=== PATIENT | female | born 1960 | race Caucasian/White ===

== ENCOUNTER 2020-04-04 02:45 | Emergency (ER) | payer MEDICARE, SELFPAY ==
--- NOTE | 2020-04-04 02:48 | XR_ITS ---
WS: [id number] LEFT KNEE: 3 VIEW(S) TECHNIQUE: AP, oblique(s) and lateral. HISTORY: fall COMPARISON: 12/20/2006 No fracture or dislocation. Moderate tricompartment osteoarthritis. Moderate-sized osteophytes along the joint lines. There is bill int space narrowing. More significant narrowing at the patellofemoral joint space. No joint effusion. No soft tissue abnormality. XR/XR knee LT 3V* [id number] IMPRESSION: 1. No acute fracture. 2. Tricompartment moderate osteoarthritis.
--- NOTE | 2020-04-04 02:48 | XR_ITS ---
WS: [id number] LEFT ANKLE: 3 VIEW(S) TECHNIQUE: AP, oblique(s) and lateral. HISTORY: fall COMPARISON: None available. Seen on the lateral projection is a linear osseous density which could be an avulsion fracture from t he anterior fibula. This is only seen on the lateral projection. No definite fractures. No joint effusion or widening of the ankle mortise. No significant degenerative changes at the joint spaces. Mild diffuse soft tissue edema. Moderate size calcaneal spur. XR/XR ankle LT min 3V* [id number] IMPRESSION: Soft tissue edema. No definite fractures. Tiny osseous density seen only on the lateral projection anteriorly could be an avulsion fracture from the fibula.
[2020-04-04 02:50] VITALS: BP 173/50; PULSE 65; RESP 17; TEMP 36.6; O2SAT 99; BMI 56.5
--- NOTE | 2020-04-04 02:50 | ED_ITS ---
HPI - Fall General: Chief Complaint: Extremity Injury, Lower Stated Complaint: left lower leg and ankle pain and swelling Time Seen by Provider: 04/04/20 02:48 Source: patient and EMS Mode of arrival: EMS Limitations: no limitations History of Present Illness: HPI Narrative: 60-year-old female states she slipped and fell on the ice on Wednesday. She states she injured her left foot ankle and knee and has had pain since then. She states she has had difficulty walking and severe pain with any weight on that ankle. She states that tonight she was having pain and having difficulty sleeping. States pain is sharp in nature and rates it a 6 out of 10. She denies any other injuries when she fell. Denies any head injury MD complaint: fall Onset (ago): day(s) Fall from: standing Associated symptoms-after fall: Denies abdominal pain, chest pain, headache(s) or neck pain Review of Systems Const: Denies: fever(s), chills, body aches or change in appetite Eyes: Denies: blurry vision or eye discomfort ENMT: Denies: throat pain or dental pain Card: Denies: chest pain Resp: Denies: dyspnea GI: Denies: abdominal pain, nausea, vomiting or diarrhea : Denies: dysuria Musc: Reports: extremity pain and joint pain; Denies: neck pain or back pain Skin/Breast: Denies: rash Neuro: Denies: headache(s) Psych: Denies: depression Noah/Lymph: Denies: easy bruising All/Imm: Denies: urticaria Physical Exam Const: COMMON NORMALS: no acute distress, patient oriented x3 and healthy appearing HENMT: COMMON NORMALS: normocephalic and atraumatic HEAD & SCALP: normocephalic and atraumatic Eye: COMMON NORMALS: Equal, round and reactive pupils present and EOMs intact bilaterally PUPIL: Yes Equal, round and reactive pupils present Neck/C-Spine: COMMON NORMALS: full ROM and supple Chest: COMMONS NORMALS: normal inspection of the chest and normal palpation of entire chest wall Resp: COMMON NORMALS: normal respiratory effort, No retractions, No use of accessory muscles and clear to auscultation bilaterally AUSCULTATION: clear to auscultation bilaterally Cardio: COMMON NORMALS: regular rate, regular rhythm and No murmurs present (C ardio) RATE: regular rate RHYTHM: regular rhythm GI: COMMON NORMALS: Normal to inspection, nondistended, normoactive bowel sounds present, Soft to palpation, non-tender and no masses PALPATION: Yes Soft to palpation Extremity: COMMON NORMALS: normal to inspection NARRATIVE EXTREMITY EXAM: Tenderness over left lateral foot and ankle mild tenderness to anterior knee Neuro: COMMON NORMALS: patient oriented x3, moves all extremities and no focal motor deficits Psych: COMMON NORMALS: mental status grossly normal, Normal thought process present and cooperative THOUGHT PROCESS: Normal thought process present Skin: COMMON NORMALS: no rashes or lesions noted and no wounds GENERAL SKIN EXAM: no rashes or lesions noted Course Vital Signs: Vital signs: Vital Signs Temperature 97.9 F 04/04/20 02:50 Pulse Rate 68 04/04/20 03:12 Respiratory Rate 18 04/04/20 03:12 Blood Pressure 131/60 04/04/20 03:12 Pulse Oximetry 98 04/04/20 03:12 MDM - Fall MDM Narrative: Medical decision making narrative: Mayra presents here after a fall. Her x-rays here are all negative. She has a walker at home and we will Riccardo wrap her foot. She is to follow-up with PCP in 2 to 4 days. She does have swelling on the foot but no signs of cellulitis she does have bruising. Imaging Data^: xr l knee: Attestation: I personally reviewed and interpreted this imaging study as follows: My impression: no acute abnormalities xr l ankle: Attestation: I personally reviewed and interpreted this imaging study as follows: My impression: no acute fx xr l foot: Attestation: I personally reviewed and interpreted this imaging study as follows: Radiologist's impression: [address] [address] XRay Report Signed Patient: Chely Katz Unit #: [id number] : 1960 Age/Sex: 60 / F ADM Date: 04/04/20 Loc: ER Room/Bed: Attending Dr: Ordering Provider/Ordering MD: Thomas Noe MD Date of Service: 04/04/20 Procedure(s): XR foot LT min 3V* [id number] Accession Number(s): [id number] Report Number: [id number] PROCEDURE INFORMATION: Exam: XR Left Foot Exam date and time: 04/04/2020 2:50 AM Age: 60 years old Clinical indication: Injury or trauma; Sprain or strain; Left; Patient HX: Multiple falls. Swelling and redness to dorsal surface of foot. TECHNIQUE: Imaging protocol: XR Left foot. Views: 3 or more views. COMPARISON: No relevant prior studies available. FINDINGS: Bones/joints: Mild hallux valgus deformity. Large plantar calcaneal spur. Degenerative midfoot arthrosis. Soft tissues: Extensive soft tissue swelling. XR/XR foot LT min 3V* [id number] IMPRESSION: 1. No acute osseous abnormality. 2. Extensive soft tissue swelling. Question cellulitis. Discharge Plan Discharge Patient Disposition: Home Clinical Impression: Ankle sprain and strain, Fall Condition: Stable Prescriptions: [place] 5-325 mg tablet 1 tab PO Q6H PRN (Reason: pain) Qty: 14 RF: 0 ondansetron 4 mg tablet,disintegrating 4 mg PO Q6H PRN (Reason: nausea and vomiting) Qty: 14 RF: 0 Naprosyn 500 mg tablet 500 mg PO BID PRN (Reason: pain) Qty: 20 RF: 0 Discharge Orders: Discharge ED (Routine); Ordered 04/04/20 Ordered By: Thomas Noe Referrals: Ela Leary MD [Primary Care Provider] - 1-3 days Discharge Diet: Advance as tolerated Discharge Activity: Resume usual activity Patient Instructions: Ankle Sprain (ED), Opioid Safety Coding Level of Care Code ED Office Machines Teacher for Chg Fwd Exam Comprehensive
[2020-04-04 02:54] VITALS: PULSE 68; RESP 18; O2SAT 98
[2020-04-04] MEDS: ondansetron 4 MG Tablet PO (03:10)
[2020-04-04] MEDS: HYDROcodone-acetaminophen 7.5-325 mg Tablet 1 TAB PO (03:11)
[2020-04-04 03:12] VITALS: BP 131/60; PULSE 68; RESP 18; O2SAT 98
[2020-04-04 04:12] VITALS: BP 134/46; PULSE 70; RESP 17; O2SAT 98
[2020-04-04] MEDS: HYDROcodone-acetaminophen 5-325 mg Tablet 1 TAB PO (04:13)
== END 2020-04-04 04:16 | disposition home or self-care (01) ==
PROVIDERS: Emergency Provider Emergency Medicine; PCP Family Medicine
DX: S93.402A Sprain of unspecified ligament of left ankle, initial encounter (principal); S96.912A Strain of unspecified muscle and tendon at ankle and foot level, left foot, initial encounter; W00.0XXA Fall on same level due to ice and snow, initial encounter
CPT/HCPCS: 73562; 73610; 73630; 99283; Q0162

== ENCOUNTER 2020-05-28 04:12 | Emergency (ER) | payer MEDICARE, SELFPAY ==
[2020-05-28 04:13] VITALS: BP 103/58; PULSE 67; RESP 16; TEMP 36.7; O2SAT 97; BMI 57.5
[2020-05-28 04:19] VITALS: BP 147/59; PULSE 62; RESP 18; O2SAT 97
[2020-05-28 04:26] VITALS: PULSE 63
--- NOTE | 2020-05-28 04:33 | XRR_ITS ---
PROCEDURE INFORMATION: Exam: XR Right Ankle Exam date and time: 05/28/2020 4:54 AM Age: 60 years old Clinical indication: Pain; Swelling or effusion of joint; Ankle; Right; Additional info: Pain, swelling TECHNIQUE: Imaging protocol: XR Right ankle. Views: 3 or more views. COMPARISON: CR Ankle 3 views, RIGHT* [id number] 10/11/2017 9:59 AM FINDINGS: Bones/joints: Large calcaneal spur. Degenerative appearance of the ankle joint with cortical irregularity and hypertrophic formation at the medial malleolus. Cortical irregularity of the distal fibula. No acute fracture. Degenerative appearance or osteochondral irregularity of the medial aspect of the talus. Soft tissues: Edema superficially diffusely. XR/XR ankle RT min 3V* [id number] IMPRESSION: 1. Degenerative arthritis ankle joint. 2. Prominent calcaneal spur. 3. Areas of osteochondral defect or degenerative changes of the medial talus.
--- NOTE | 2020-05-28 05:01 | W.ED.EXTPRO ---
HPI - Extremity Problem General: Chief complaint: Extremity Problem,Nontraumatic Stated complaint: ANKLE PAIN Time Seen by Provider: 05/28/20 04:13 History of Present Illness: HPI Narrative: 60-year-old female comes in with right ankle pain. She states it started hurting about 10 PM. She states when she went to bed about 1030 that the pain kept her awake. About 11 PM she did take naproxen which did not seem to help. Her medications include aspirin 81 mg. She states it hurts to stand on the foot/ankle as well as increased pain with range of motion of the ankle. She states she injured that ankle in 1984 but not since then. She denies any numbness or tingling in her foot or toes. She states it is swollen at the ankle. She denies any specific trauma. She does states she has a history of gout. MD Complaint: joint swelling and joint pain Onset (ago): hour(s) (First noticed the pain about 10 PM) Pain Consistency: constant Location: right and lower extremity (Right ankle) Quality: sharp Radiation: none Relieving factors: nothing Exacerbating factors: range of motion, weight bearing and walking Associated symptoms: Reports no associated symptoms; Deny fever(s) Context: history of gout Review of Systems Const: Denies: fever(s), chills or body aches Musc: Reports: joint swelling (Right ankle), joint warmth and joint stiffness Physical Exam Const: COMMON NORMALS: no acute distress, patient oriented x3, healthy appearing, alert and well nourished NUTRITIONAL APPEARANCE: obese Extremity: COMMON NORMALS: capillary refill normal and no pedal edema RIGHT LOWER EXTREMITY: Yes foot & digits Right ankle: Yes inspection (Swelling noted at the lateral malleolus), Yes ROM (Increased pain with range of motion in all directions) and Yes neurovascular exam (Intact) and Yes foot & digits (Good capillary refill noted. Good pedal pulses.) Neuro: COMMON NORMALS: patient oriented x3 SENSORIUM/ORIENTATION: Yes alert Course ED course: Right ankle x-ray shows no acute fracture or dislocation. Vital Signs: Vital signs: Vital Signs Temperature 98.1 F 05/28/20 04:13 Pulse Rate 63 05/28/20 04:26 Respiratory Rate 18 05/28/20 04:19 Blood Pressure 147/59 05/28/20 04:19 Pulse Oximetry 97 05/28/20 04:19 Discharge Plan Discharge Patient Disposition: Home Clinical Impression: Ankle pain Qualifiers: Chronicity: acute Laterality: right Qualified Code(s): M25.571 - Pain in right ankle and joints of right foot Condition: Stable Prescriptions: No Action [place] 5-325 mg tablet 1 tab PO Q6H PRN (Reason: pain) Qty: 14 RF: 0 ondansetron 4 mg tablet,disintegrating 4 mg PO Q6H PRN (Reason: nausea and vomiting) Qty: 14 RF: 0 naproxen [Naprosyn] 500 mg tablet 500 mg PO BID PRN (Reason: pain) Qty: 20 RF: 0 spironolactone 25 mg tablet 25 mg PO DAILY RF: 0 montelukast 10 mg tablet 10 mg PO BEDTIME RF: 0 carvedilol 6.25 mg tablet 6.25 mg PO BID RF: 0 levothyroxine 50 mcg tablet 50 mcg PO DAILY RF: 0 trandolapril 4 mg tablet 4 mg PO DAILY RF: 0 simvastatin 10 mg tablet 5 mg PO BEDTIME RF: 0 torsemide 20 mg tablet 20 mg PO DAILY RF: 0 metformin 500 mg tablet 500 mg PO DAILY RF: 0 Discharge Orders: Discharge ED (Routine); Ordered 05/28/20 Ordered By: Ryan Quinn Discharge Diet: Usual diet Discharge Activity: Limit activity as instructed Patient Instructions: Opioid Safety Activity Restrictions/Additional Instructions: Rest, Ice, Support, Elevation Ibuprofen 400-600 mg every 4-6 hours, take with food, do not take the naproxen when taking the ibuprofen. Follow up with your Primary Care Provider. Coding Level of Care Code ED Auto Wrecker for Ralph Fwd Exam Expanded Problem Focused
[2020-05-28] MEDS: ketorolac 60 mg/2 mL INJ IM (05:37)
[2020-05-28 05:57] VITALS: BP 134/75; PULSE 63; O2SAT 98
== END 2020-05-28 05:55 | disposition home or self-care (01) ==
PROVIDERS: Emergency Provider Emergency Medicine
DX: M25.571 Pain in right ankle and joints of right foot (principal)
CPT/HCPCS: 29515; 73610; 96372; 99283; J1885

== ENCOUNTER 2022-02-14 10:13 | Emergency (ER) | payer MEDICARE, SELFPAY ==
--- NOTE | 2022-02-14 10:20 | XRR_ITS ---
PROCEDURE INFORMATION: Exam: XR Left Foot Exam date and time: 02/14/2022 10:40 AM Age: 62 years old Clinical indication: Pain; Foot; Patient HX: PT had prior sprain last year on ice and has had trouble with her left ankle since. TECHNIQUE: Imaging protocol: Radiologic exam of the Left foot. Views: 3 or more views. COMPARISON: CR XR foot LT min 3V* [id number] 04/04/2020 2:45 AM FINDINGS: Bones/joints: No acute fracture is seen. The joints are unremarkable. Calcaneal plantar and Achilles enthesophytes noted. Soft tissues: No joint effusion is seen. XR/XR foot LT min 3V* [id number] IMPRESSION: No evidence of acute fracture or dislocation.
[2022-02-14 10:27] VITALS: BP 115/76; PULSE 70; RESP 18; TEMP 36.6; O2SAT 95
--- NOTE | 2022-02-14 12:32 | USR_ITS ---
PROCEDURE INFORMATION: Exam: US Duplex Left Lower Extremity Veins, Limited Exam date and time: 02/14/2022 1:00 PM Age: 62 years old Clinical indication: Pain; Leg, lower and foot; Left; Additional info: Pain and swelling TECHNIQUE: Imaging protocol: Real-time Duplex ultrasound of the Left Lower Extremity with 2-D teran scale, color Doppler flow and spectral waveform analysis with image documentation. Limited exam focused on the left lower extremity veins. COMPARISON: CR (LOW EXM, ) 02/14/2022 10:40 AM FINDINGS: Left deep veins: Unremarkable. The common femoral, femoral, proximal profunda femoral and popliteal veins are patent without thrombus. Normal Doppler waveforms. Normal compressibility and/or augmentation response. Left superficial veins: Unremarkable. Saphenofemoral junction is patent without thrombus. Soft tissues: Unremarkable. US/CV venous duplex [facility] [id number] IMPRESSION: No evidence of deep vein thrombosis.
--- NOTE | 2022-02-14 14:04 | ED_ITS ---
HPI - Extremity Problem General: Chief complaint: Extremity Injury, Lower Stated complaint: Issues walking on left foot, broke in Mar. Time Seen by Provider: 02/14/22 10:16 History of Present Illness: 62 yo female patient presents to ER with left foot pain. Pt denies any injury or trauma but states this has been going on for weeks. Pt denies any hx of gout or hx of fever sob or DVT. Associated symptoms: Deny chest pain, fever(s) or rash Review of Systems Const: Denies: fever(s), chills, body aches, change in appetite, change in weight, fatigue, malaise or diaphoresis Eyes: Denies: change in vision, blurry vision, blind spots, photophobia, eye discomfort, eye discharge, eye redness, floaters or seeing flashes ENMT: Denies: throat pain, uvular edema, enlarged tonsils, odynophagia, hoarseness, mouth pain, swelling of lips/tongue, oral sores, bleeding gums, dental pain, dry mouth, ear or mastoid pain, ear discharge, change in hearing, tinnitus, disequilibrium, nasal discharge, nasal congestion, post nasal drip or sinus pain Card: Denies: chest pain, palpitations, irregular heart rhythm, edema, swelling of feet/ankles, lightheadedness, syncope, pre-syncope, dyspnea on exertion, orthopnea, leg pain with exertion or acrocyanosis Resp: Denies: dyspnea, productive cough, non-productive cough, wheezing, stridor, pain on inspiration, change in phlegm color, hemoptysis or chest congestion GI: Denies: abdominal pain, nausea, vomiting, hematemesis, dysphagia, diarrhea, constipation, GI cramping, change in bowel habits or rectal pain : Denies: flank pain, difficulty voiding, dysuria, urinary frequency, urinary urgency, urinary hesitancy or hematuria Musc: Denies: neck pain, back pain, joint swelling, joint redness, joint warmth or deformity Skin/Breast: Denies: rash, pruritus, erythema, sores, new lesions, changes in skin color or dry skin Neuro: Denies: headache(s), numbness in extremities, weakness in extremities, sensory changes, lack of coordination, difficulty walking, frequent falls, dizziness, vertigo, confusion, behavioral changes, Slurred speech present, difficulty communicating thoughts or seizure-like activity Psych: Denies: anxiety, depression, suicidal ideation or homicidal ideation Endo: Denies: polyuria, polydipsia, tired all the time, cold intolerance, excessive sweating, flushing, hot flashes or heat intolerance Noah/Lymph: Denies: easy bruising, easy bleeding, petechiae, purpura, enlarged lymph nodes or tender lymph nodes All/Imm: Denies: urticaria, throat swelling, tongue swelling, facial swelling, acute wheezing or itchy eyes Physical Exam Const: COMMON NORMALS: no acute distress, average body habitus, patient oriented x3, no limitations, healthy appearing, alert and well nourished HENMT: THROAT: no uvular edema Neck/C-Spine: COMMON NORMALS: no JVD Resp: COMMON NORMALS: normal respiratory effort, No retractions, No use of accessory muscles, clear to auscultation bilaterally and percussion normal AUSCULTATION: clear to auscultation bilaterally PERCUSSION: percussion normal Cardio: COMMON NORMALS: no JVD, regular rate, regular rhythm, S1 normal heart sound present, S2 normal heart sound present, No gallops present (Cardio), No clicks present (Cardio), No murmurs present (Cardio), No rub (Cardio) and Peripheral pulses 2+ throughout RATE: regular rate RHYTHM: regular rhythm HEART SOUNDS: S1 normal heart sound present and S2 normal heart sound present PERIPHERAL PULSES: Peripheral pulses 2+ throughout Extremity: OTHER: Pt has some edema to left foot. there is no erythema or ecchymosis. Pt has mild calf tenderness no swelling noted pt is NVI distally Neuro: COMMON NORMALS: patient oriented x3 SENSORIUM/ORIENTATION: Yes alert Course Vital Signs: Vital signs: Vital Signs Temperature 97.8 F 02/14/22 10:27 Pulse Rate 70 02/14/22 10:27 Respiratory Rate 18 02/14/22 10:27 Blood Pressure 115/76 02/14/22 10:27 Pulse Oximetry 95 02/14/22 10:27 Oxygen Delivery Me thod 02/14/22 10:27 MDM - Extremity (Nontraumatic) Medical Decision Making Patient is well appearing non toxic and in no acute distress. 62 yo female patient presents to ER with left foot pain. Pt denies any injury or trauma but states this has been going on for weeks. Pt denies any hx of gout or hx of fever sob or DVT. xray is negative for any acute fractures or dislocation. Negative for DVT per US. Pt has no warm or red area concerning for gout or cellulitis. I will treat with NSAIDs and elevation and have her follow up with PCP Medical Records gout cellulitits, fracture, sprain Lab Data Radiology Impressions Foot X-Ray 02/14/22 10:20 IMPRESSION: No evidence of acute fracture or dislocation. Venous Duplex 02/14/22 12:32 IMPRESSION: No evidence of deep vein thrombosis. Discharge Plan Discharge Patient Disposition: Home Clinical Impression: Foot pain Condition: Stable Prescriptions: New indomethacin 50 mg capsule 50 mg PO TID Qty: 30 0RF Rx Instructions: administer with food or milk No Action azelastine 137 mcg (0.1 %) aerosol,spray 2 spray intranasal BID Qty: 30 2RF Rx Instructions: administer into each nostril [place] 5-325 mg tablet 1 tab PO Q6H PRN (Reason: pain) Qty: 14 0RF ondansetron 4 mg tablet,disintegrating 4 mg PO Q6H PRN (Reason: nausea and vomiting) Qty: 14 0RF naproxen [Naprosyn] 500 mg tablet 500 mg PO BID PRN (Reason: pain) Qty: 20 0RF spironolactone 25 mg tablet 25 mg PO DAILY montelukast 10 mg tablet 10 mg PO BEDTIME carvedilol 6.25 mg tablet 6.25 mg PO BID levothyroxine 50 mcg tablet 50 mcg PO DAILY trandolapril 4 mg tablet 4 mg PO DAILY simvastatin 10 mg tablet 5 mg PO BEDTIME torsemide 20 mg tablet 20 mg PO DAILY metformin 500 mg tablet 500 mg PO DAILY Discharge Orders: Discharge ED (Routine); Ordered 02/14/22 Ordered By: Radha Villarreal Discharge Diet: Advance as tolerated Discharge Activity: Increase activity as tolerated Patient Instructions: Opioid Safety, Pain Management Activity Restrictions/Additional Instructions: Please take pain medication as prescribed and do not take Motrin or Advil with this. Elevate Extremity Riccardo wrap for comfort as needed Return to ER with any worsening of symptoms Coding Level of Care Code ED Inside Sales Professional for Ralph Gurrola
[2022-02-14] MEDS: HYDROcodone-acetaminophen 5-325 mg Tablet 1 TAB PO (14:37)
[2022-02-14 14:40] VITALS: BP 149/73; PULSE 64; RESP 16; O2SAT 97
--- NOTE | 2022-02-14 14:40 | PC.NURSE ---
MANE WRAP APPLIED TO LEFT ANKLE.
== END 2022-02-14 14:43 | disposition home or self-care (01) ==
PROVIDERS: Emergency Provider Registered Nurse
DX: M79.672 Pain in left foot (principal); Z79.84 Long term (current) use of oral hypoglycemic drugs; E11.9 Type 2 diabetes mellitus without complications; M10.9 Gout, unspecified
CPT/HCPCS: 73630; 80048; 85025; 93971; 96374; 96375; 99284; J1170; J2405

== ENCOUNTER 2022-02-14 23:17 | Emergency (ER) | payer MEDICARE, SELFPAY ==
[2022-02-14 23:19] VITALS: BP 102/84; PULSE 66; RESP 18; TEMP 36.7; O2SAT 98; BMI 54.5
--- NOTE | 2022-02-14 23:22 | ED_ITS ---
HPI - General Adult General: Chief complaint: Extremity Injury, Lower Stated complaint: Left foot pain Time Seen by Provider: 02/14/22 23:19 Source: patient and EMS Mode of arrival: EMS Limitations: no limitations History of Present Illness: 62-year-old female who was seen here earlier today with left foot pain she states she has had increasing pain throughout the day much worse with palpation and walking. She rates her pain a 8 out of 10 currently denies any injuries has had a history of gout in the past. Associated symptoms: Deny chest pain, dyspnea, headache(s), nausea, rash or vomiting Review of Systems Const: Denies: fever(s), chills, body aches or change in appetite Eyes: Denies: blurry vision or eye discomfort ENMT: Denies: throat pain or dental pain Card: Denies: chest pain Resp: Denies: dyspnea GI: Denies: abdominal pain, nausea, vomiting or diarrhea : Denies: dysuria Musc: Reports: extremity pain Skin/Breast: Denies: rash Neuro: Denies: headache(s) Psych: Denies: depression Noah/Lymph: Denies: easy bruising All/Imm: Denies: urticaria PFSH ED PFSH: Medical History (Updated 02/15/22 @ 00:22 by Thomas Noe MD) Diabetes Social History (Updated 02/14/22 @ 23:23 by Thomas Noe MD) Substance/Drug Use: never Physical Exam Const: COMMON NORMALS: no acute distress HENMT: COMMON NORMALS: normocephalic and atraumatic HEAD & SCALP: normocephalic and atraumatic Eye: COMMON NORMALS: conjunctivae normal CONJUNCTIVA: Yes conjunctivae normal Neck/C-Spine: COMMON NORMALS: full ROM Chest: COMMONS NORMALS: normal inspection of the chest Resp: COMMON NORMALS: normal respiratory effort Cardio: COMMON NORMALS: regular rate RATE: regular rate GI: INSPECTION: Yes normal to inspection Extremity: OTHER: slight tenderness over left foot Psych: COMMON NORMALS: mental status grossly normal Skin: COMMON NORMALS: no rashes or lesions noted GENERAL SKIN EXAM: no rashes or lesions noted Course Vital Signs: Vital signs: Vital Signs Temperature 98.1 F 02/14/22 23:19 Pulse Rate 66 02/14/22 23:19 Respiratory Rate 18 02/14/22 23:19 Blood Pressure 102/84 02/14/22 23:19 Pulse Oximetry 98 02/14/22 23:19 MDM - General Adult Medical Decision Making Patient presents here with left foot pain likely gout patient's blood work here is normal no signs of cellulitis we will place patient on [place] patient is to continue indomethacin. Lab Data 02/14/22 23:49 02/14/22 23:49 Laboratory Results WBC 6.7 10^3/uL (4.0-10.0) 02/14/22 23:49 RBC 4.34 10^6/uL (4.1-5.3) 02/14/22 23:49 Hgb 13.6 g/dL (11.5-15.3) 02/14/22 23:49 Hct 43.9 % (37.0-47.0) 02/14/22 23:49 MCV 101.2 fl (81-99) H 02/14/22 23:49 MCH 31.3 pg (28.0-34.0) 02/14/22 23:49 MCHC 31.0 g/dL (30.0-36.0) 02/14/22 23:49 RDW 12.7 % (12.1-15.1) 02/14/22 23:49 Plt Count 225 10^3/cmm (130-400) 02/14/22 23:49 MPV 10.6 fL (7.4-10.4) H 02/14/22 23:49 Neut % (Auto) 69.8 % 02/14/22 23:49 Lymph % (Auto) 17.2 % 02/14/22 23:49 [place] % (Auto) 10.6 % 02/14/22 23:49 Eos % (Auto) 1.9 % 02/14/22 23:49 Baso % (Auto) 0.4 % 02/14/22 23:49 Neut # (Auto) 4.66 10^3/uL (1.8-7.7) 02/14/22 23:49 Lymph # (Auto) 1.2 10^3/uL (0.8-4.8) 02/14/22 23:49 [place] # (Auto) 0.7 10^3/uL (0.2-0.9) 02/14/22 23:49 Eos # (Auto) 0.1 10^3/uL (0.0-0.8) 02/14/22 23:49 Baso # (Auto) 0.0 10^3/uL (0.0-0.1) 02/14/22 23:49 Nucleated RBC % (auto) 0 % 02/14/22 23:49 Nucleated RBCs # 0.0 /100WBC 02/14/22 23:49 Sodium 137 mmol/L (136-145) 02/14/22 23:49 Potassium 4.3 mmol/L (3.5-5.1) 02/14/22 23:49 Chloride 99 mmol/L (98-107) 02/14/22 23:49 Carbon Dioxide 30 mmol/L (22-29) H 02/14/22 23:49 Anion Gap 12.3 (5-19) 02/14/22 23:49 BUN 19 mg/dL (8-23) 02/14/22 23:49 Creatinine 0.9 mg/dL (0.5-0.9) 02/14/22 23:49 GFR Calculation 63.2 mL/min (90-130) L 02/14/22 23:49 Glucose 133 mg/dL (65-115) H 02/14/22 23:49 Calculated Osmolality 288 mOsm/kg (285-295) 02/14/22 23:49 Calcium 9.2 mg/dL (8.5-10.5) 02/14/22 23:49 Discharge Plan Discharge Patient Disposition: Home Clinical Impression: Gout Prescriptions: New hydrocodone-acetaminophen 5-325 mg tablet 1 tab PO Q6H PRN (Reason: pain) Qty: 14 0RF No Action azelastine 137 mcg (0.1 %) aerosol,spray 2 spray intranasal BID Qty: 30 2RF Rx Instructions: administer into each nostril [place] 5-325 mg tablet 1 tab PO Q6H PRN (Reason: pain) Qty: 14 0RF ondansetron 4 mg tablet,disintegrating 4 mg PO Q6H PRN (Reason: nausea and vomiting) Qty: 14 0RF naproxen [Naprosyn] 500 mg tablet 500 mg PO BID PRN (Reason: pain) Qty: 20 0RF spironolactone 25 mg tablet 25 mg PO DAILY montelukast 10 mg tablet 10 mg PO BEDTIME carvedilol 6.25 mg tablet 6.25 mg PO BID levothyroxine 50 mcg tablet 50 mcg PO DAILY trandolapril 4 mg tablet 4 mg PO DAILY simvastatin 10 mg tablet 5 mg PO BEDTIME torsemide 20 mg tablet 20 mg PO DAILY metformin 500 mg tablet 500 mg PO DAILY indomethacin 50 mg capsule 50 mg PO TID Qty: 30 0RF Rx Instructions: administer with food or milk Discharge Orders: Discharge ED (Routine); Ordered 02/15/22 Ordered By: Thomas Noe Discharge Diet: Advance as tolerated Discharge Activity: Resume usual activity Patient Instructions: Gout (ED), Opioid Safety Coding Level of Care Code ED Programs Manager for Ralph Fwd Exam Comprehensive
[2022-02-14] MEDS: ondansetron 2 mg/ML SDV 2 mL 4 MG IVP (23:50)
[2022-02-14] MEDS: HYDROmorphone 1 mg/mL INJ 1 mL 0.5 MG IVP (23:51)
[2022-02-14 23:59] LABS: Basophils % 0.4 %; Eosinophils # 0.1 10^3/uL (0.0-0.8); Eosinophils % 1.9 %; Hematocrit 43.9 % (37.0-47.0); Hemoglobin 13.6 g/dL (11.5-15.3); Lymphocytes # 1.2 10^3/uL (0.8-4.8); Lymphocytes % 17.2 %; Mean Corpuscular Hemoglobin 31.3 pg (28.0-34.0); Mean Corpuscular Volume 101.2 fl (81-99); Mean Platelet Volume 10.6 fL (7.4-10.4); Monocytes # 0.7 10^3/uL (0.2-0.9); Monocytes % 10.6 %; Neutrophils # 4.66 10^3/uL (1.8-7.7); Neutrophils % 69.8 %; Nucleated Red Blood Cells % 0 %; Platelet Count 225 10^3/cmm (130-400); Red Blood Count 4.34 10^6/uL (4.1-5.3); Red Cell Distribution Width 12.7 % (12.1-15.1); White Blood Count 6.7 10^3/uL (4.0-10.0)
[2022-02-15 00:19] LABS: Anion Gap 12.3 (5-19); Blood Urea Nitrogen 19 mg/dL (8-23); Calcium 9.2 mg/dL (8.5-10.5); Carbon Dioxide 30 mmol/L (22-29); Chloride 99 mmol/L (98-107); Creatinine Clr Calc Pharmacy 123.6985; Glomerular Filtration Rate 63.2 mL/min (90-130); Glucose 133 mg/dL (65-115); Osmolality Calculated 288 mOsm/kg (285-295); Potassium 4.3 mmol/L (3.5-5.1); Sodium 137 mmol/L (136-145)
[2022-02-15] MEDS: HYDROcodone-acetaminophen 5-325 mg Tablet 2 TAB PO (00:30)
[2022-02-15 00:43] VITALS: BP 116/71; PULSE 65; RESP 18; O2SAT 96
== END 2022-02-15 00:30 | disposition home or self-care (01) ==
PROVIDERS: Emergency Provider Emergency Medicine
DX: M10.9 Gout, unspecified (principal); Z79.84 Long term (current) use of oral hypoglycemic drugs; E11.9 Type 2 diabetes mellitus without complications
CPT/HCPCS: 80048; 85025; 96374; 96375; 99284; J1170; J2405

== ENCOUNTER 2024-03-10 11:34 | Emergency (ER) | payer MEDICARE, SELFPAY ==
[2024-03-10] VITALS (10 sets, daily range): BP systolic 108–121; BP diastolic 45–69; PULSE 57–94; RESP 12–20; TEMP 36.9; O2SAT 87–96; BMI 56.5
--- NOTE | 2024-03-10 11:43 | ECG_ITS ---
[email or web address] Test Date: 2024-03-10 Pat Name: Chely Katz Department: Room: Gender: Female Prototype Machinist: : 1960 Requested By: Salvador Coles Order Number: [id number] Mateus MD: Kingston White M.D. Measurements Intervals [place] Rate: 90 P: 0 IN: 0 QRS: -45 QRSD: 129 T: 67 QT: 409 QTc: 503 Interpretive Statements SINUS RHYTHM WITH PACs LEFT AXIS DEVIATION [QRS AXIS < -30] POSSIBLE ANTERIOR MYOCARDIAL INFARCTION , OF INDETERMINATE AGE [30 ms Q WAVE IN V3/V4, OR R < 0.2 mV IN V4] Compared to ECG 10/08/2018 23:05:50 Myocardial infarct finding still present Electronically Signed On 03-11-2024 23:09:19 SLATER APPRENTICE by Kingston White M.D. [email or web address]
--- NOTE | 2024-03-10 11:56 | XRR_ITS ---
PROCEDURE INFORMATION: Exam: XR Chest Exam date and time: 03/10/2024 12:05 PM Age: 64 years old Clinical indication: Cough TECHNIQUE: Imaging protocol: Radiologic exam of the chest. Views: 1 view. COMPARISON: CR XR chest 1V [id number] 10/08/2018 11:35 PM FINDINGS: Lungs: No pulmonary consolidation. Pleural spaces: No pleural effusion. No pneumothorax. Heart/Mediastinum: The cardiac silhouette is unchanged. No gross evidence of pneumomediastinum. Bones/joints: No gross fracture. XR/XR chest 1V portable [id number] IMPRESSION: No acute cardiopulmonary abnormality identified.
[2024-03-10 12:13] LABS: Basophils % 0.3 %; Eosinophils % 0.6 %; Hematocrit 41.1 % (36-47); Lymphocytes # 0.6 10^3/uL (0.8-4.8); Lymphocytes % 17.2 %; Mean Corpuscular HGB Conc 30.7 g/dL (30-55); Mean Corpuscular Hemoglobin 31.4 pg (27-33); Mean Corpuscular Volume 102.5 fl (85-98); Mean Platelet Volume 9.9 fL (7.4-10.4); Monocytes # 0.4 10^3/uL (0.2-0.9); Monocytes % 9.7 %; Neutrophils # 2.58 10^3/uL (1.8-7.7); Neutrophils % 71.6 %; Nucleated Red Blood Cells % 0 %; Platelet Count 221 10^3/cmm (157-399); Red Blood Count 4.01 10^6/uL (3.85-5.65); Red Cell Distribution Width 14.6 % (12.1-15.1)
--- NOTE | 2024-03-10 12:21 | W.ED.SOB ---
HPI - SOB/Dyspnea General: Chief Complaint: Shortness of Breath/Dyspnea Stated Complaint: o2 levels Time Seen by Provider: 03/10/24 11:52 History of Present Illness: HPI Narrative: 64-year-old female presents with cough, shortness of breath has been going on for about a week. Reports it is getting little bit worse. She does have some underlying COPD/asthma Related Data Home Medications Medication Instructions Recorded Confirmed carvedilol 6.25 mg tablet 6.25 mg PO BID 05/28/20 03/10/24 levothyroxine 50 mcg tablet 50 mcg PO DAILY 05/28/20 03/10/24 metformin 500 mg tablet 500 mg PO DAILY 05/28/20 03/10/24 montelukast 10 mg tablet 10 mg PO BEDTIME 05/28/20 03/10/24 simvastatin 10 mg tablet 5 mg PO BEDTIME 05/28/20 03/10/24 torsemide 20 mg tablet 20 mg PO DAILY 05/28/20 03/10/24 trandolapril 4 mg tablet 4 mg PO DAILY 05/28/20 03/10/24 albuterol sulfate 90 mcg/actuation 2 puff inhalation Q6H 03/10/24 03/10/24 aerosol inhaler allopurinol 100 mg tablet 200 mg PO DAILY 03/10/24 03/10/24 Previous Rx's Medication Instructions Recorded azelastine 137 mcg (0.1 %) nasal 2 spray intranasal BID #30 mL 12/23/21 spray albuterol sulfate 90 mcg/actuation 2 inh inhalation Q4H PRN shortness 03/10/24 aerosol inhaler (Ventolin HFA) of breath or wheezing #8.5 grams Allergies Allergy/AdvReac Type Severity Reaction Status Date / Time codeine Allergy ALGY-Hives Verified 05/28/20 04:19 furosemide [From Lasix] Allergy ALGY-Hives Verified 05/28/20 04:19 methylprednisolone Allergy ALGY-Anaphy Verified 05/28/20 04:19 [From Solu-Medrol] laxis morphine Allergy ALGY-Hives Verified 05/28/20 04:19 [facility] ED PFSH: Medical History (Updated 03/10/24 @ 15:21 by Neftali Valentine DO) Diabetes Social History (Updated 02/14/22 @ 23:23 by Thomas Noe MD) Substance/Drug Use: never Course Vital Signs: Vital signs: Vital Signs Temperature 98.4 F 03/10/24 11:39 Pulse Rate 75 03/10/24 15:15 Respiratory Rate 18 03/10/24 15:15 Blood Pressure 121/45 03/10/24 13:54 Pulse Oximetry 89 L 03/10/24 15:15 Oxygen Delivery Me thod Room Air 03/10/24 15:15 Oxygen Flow Rate 3 03/10/24 13:54 MDM - SOB/Dyspnea Medical Decision Making Patient is positive for COVID. Patient has underlying history of asthma. Her O2 saturations were in the low 90s. She was offered admission but declined. She reports he is feeling a lot better. I do suspect that her baseline O2 is normally around 90. Patient will return if her symptoms worsen. She had negative EKG. Lab Data 03/10/24 12:07 03/10/24 12:07 Labs/Radiology: Radiology Impressions Chest X-Ray 03/10/24 11:56 IMPRESSION: No acute cardiopulmonary abnormality identified. Laboratory Results WBC 3.60 10^3/uL (3.29-11.43) 03/10/24 12:07 RBC 4.01 10^6/uL (3.85-5.65) 03/10/24 12:07 Hgb 12.60 g/dL (11.27-16.99) 03/10/24 12:07 Hct 41.1 % (36-47) 03/10/24 12:07 MCV 102.5 fl (85-98) H 03/10/24 12:07 MCH 31.4 pg (27-33) 03/10/24 12:07 MCHC 30.7 g/dL (30-55) 03/10/24 12:07 RDW 14.6 % (12.1-15.1) 03/10/24 12:07 Plt Count 221 10^3/cmm (157-399) 03/10/24 12:07 MPV 9.9 fL (7.4-10.4) 03/10/24 12:07 Neut % (Auto) 71.6 % 03/10/24 12:07 Lymph % (Auto) 17.2 % 03/10/24 12:07 [place] % (Auto) 9.7 % 03/10/24 12:07 Eos % (Auto) 0.6 % 03/10/24 12:07 Baso % (Auto) 0.3 % 03/10/24 12:07 Neut # (Auto) 2.58 10^3/uL (1.8-7.7) 03/10/24 12:07 Lymph # (Auto) 0.6 10^3/uL (0.8-4.8) L 03/10/24 12:07 [place] # (Auto) 0.4 10^3/uL (0.2-0.9) 03/10/24 12:07 Eos # (Auto) 0.0 10^3/uL (0.0-0.8) 03/10/24 12:07 Baso # (Auto) 0.0 10^3/uL (0.0-0.1) 03/10/24 12:07 Nucleated RBC % (auto) 0 % 03/10/24 12:07 Nucleated RBCs # 0.0 /100WBC 03/10/24 12:07 Sodium 137 mmol/L (136-145) 03/10/24 12:07 Potassium 3.1 mmol/L (3.5-5.1) L 03/10/24 12:07 Chloride 94 mmol/L (98-107) L 03/10/24 12:07 Carbon Dioxide 33 mmol/L (22-29) H 03/10/24 12:07 Anion Gap 13.1 (5-19) 03/10/24 12:07 BUN 15 mg/dL (8-23) 03/10/24 12:07 Creatinine 1.0 mg/dL (0.5-0.9) H 03/10/24 12:07 GFR Calculation 55.6 mL/min (90-130) L 03/10/24 12:07 Glucose 99 mg/dL (65-115) 03/10/24 12:07 Calculated Osmolality 285 mOsm/kg (285-295) 03/10/24 12:07 Calcium 8.2 mg/dL (8.5-10.5) L 03/10/24 12:07 Adenovirus (PCR) Not detected (NOT DETECT) 03/10/24 12:51 C. pneumoniae DNA (PCR) Not detected (NOT DETECT) 03/10/24 12:51 Coronavirus 229E (PCR) Not detected (NOT DETECT) 03/10/24 12:51 Human Metapneumovir PCR Not detected (NOT DETECT) 03/10/24 12:51 Influenza A (H1) PCR Not detected (NOT DETECT) 03/10/24 12:51 Influ A (H1/09) PCR Not detected (NOT DETECT) 03/10/24 12:51 Influenza A (H3) PCR Not detected (NOT DETECT) 03/10/24 12:51 Influenza Type A (PCR) Not detected (NOT DETECT) 03/10/24 12:51 Influenza Type B (PCR) Not detected (NOT DETECT) 03/10/24 12:51 M. pneumoniae (PCR) Not detected (NOT DETECT) 03/10/24 12:51 Parainfluenza 1 (PCR) Not detected (NOT DETECT) 03/10/24 12:51 Parainfluenza 2 (PCR) Not detected (NOT DETECT) 03/10/24 12:51 Parainfluenza 3 (PCR) Not detected (NOT DETECT) 03/10/24 12:51 Parainfluenza 4 (PCR) Not detected (NOT DETECT) 03/10/24 12:51 RSV Type A (PCR) Not detected (NOT DETECT) 03/10/24 12:51 RSV Type B (PCR) Not detected (NOT DETECT) 03/10/24 12:51 Entero/Rhino (PCR) Not detected (NOT DETECT) 03/10/24 12:51 SARS-CoV-2 (PCR) Detected (NOT DETECT) A 03/10/24 12:51 All radiology interpretation(s) finalized by discharge Discharge Plan Discharge Patient Disposition: Home Clinical Impression: Asthma with exacerbation, COVID Condition: Stable Prescriptions: New albuterol sulfate [Ventolin HFA] 90 mcg/actuation HFA aerosol inhaler 2 inh inhalation Q4H PRN (Reason: shortness of breath or wheezing) Qty: 8.5 0RF No Action azelastine 137 mcg (0.1 %) aerosol,spray 2 spray intranasal BID Qty: 30 2RF Rx Instructions: administer into each nostril montelukast 10 mg tablet 10 mg PO BEDTIME carvedilol 6.25 mg tablet 6.25 mg PO BID levothyroxine 50 mcg tablet 50 mcg PO DAILY trandolapril 4 mg tablet 4 mg PO DAILY simvastatin 10 mg tablet 5 mg PO BEDTIME torsemide 20 mg tablet 20 mg PO DAILY metformin 500 mg tablet 500 mg PO DAILY allopurinol 100 mg tablet 200 mg PO DAILY albuterol sulfate 90 mcg/actuation HFA aerosol inhaler 2 puff INHALATION Q6H Discharge Orders: Discharge ED (Routine); Ordered 03/10/24 Ordered By: Neftali Valentine Discharge Diet: Advance as tolerated Discharge Activity: Resume usual activity Patient Instructions: Asthma Exacerbation - Adult, COVID-19 (Coronavirus Disease 2019) (ED), Opioid Safety, Pain Management Activity Restrictions/Additional Instructions: Please use your inhaler every 4 hours while awake for the next 36 hours then as needed. If your symptoms continue to worsen please return to the ER. Coding Level of Care Code ED Beauty Sales Advisor for Ralph Gurrola
[2024-03-10 12:32] LABS: Anion Gap 13.1 (5-19); Blood Urea Nitrogen 15 mg/dL (8-23); Calcium 8.2 mg/dL (8.5-10.5); Carbon Dioxide 33 mmol/L (22-29); Chloride 94 mmol/L (98-107); Creatinine Clr Calc Pharmacy 112.4532; Glomerular Filtration Rate 55.6 mL/min (90-130); Glucose 99 mg/dL (65-115); Osmolality Calculated 285 mOsm/kg (285-295); Potassium 3.1 mmol/L (3.5-5.1); Sodium 137 mmol/L (136-145)
[2024-03-10] MEDS: ipratropium-albuterol 3 mL Neb INHALATION ×2 (12:34→15:14)
[2024-03-10] MEDS: albuterol 2.5 mg/3 mL Neb INHALATION (13:07)
[2024-03-10] MEDS: magnesium sulfate premix 2 GM/50 ML PIGGYBACK IV (13:49)
[2024-03-10 14:50] LABS: Adenovirus Not Detected (NOT DETECT); Chlamydia Pneumoniae Not Detected (NOT DETECT); Coronavirus 229E,HKU1,NL63,OC4 Not Detected (NOT DETECT); Human Metapneumovirus Not Detected (NOT DETECT); Human Rhinovirus/Enterovirus Not Detected (NOT DETECT); Influenza A Not Detected (NOT DETECT); Influenza A H1 Not Detected (NOT DETECT); Influenza A H1-2009 Not Detected (NOT DETECT); Influenza A H3 Not Detected (NOT DETECT); Influenza B Not Detected (NOT DETECT); Mycoplasma Pneumoniae Not Detected (NOT DETECT); Parainfluenza Virus Type 1 Not Detected (NOT DETECT); Parainfluenza Virus Type 2 Not Detected (NOT DETECT); Parainfluenza Virus Type 3 Not Detected (NOT DETECT); Parainfluenza Virus Type 4 Not Detected (NOT DETECT); Respiratory Syncytial Virus A Not Detected (NOT DETECT); Respiratory Syncytial Virus B Not Detected (NOT DETECT)
[2024-03-10 15:00] LABS: SARS-COV-2 Detected (NOT DETECT)
== END 2024-03-10 16:28 | disposition home or self-care (01) ==
PROVIDERS: Emergency Provider Student in an Organized Health Care Education/Training Program
DX: J44.1 Chronic obstructive pulmonary disease with (acute) exacerbation (principal); Z11.52 Encounter for screening for COVID-19; Z79.84 Long term (current) use of oral hypoglycemic drugs; E11.9 Type 2 diabetes mellitus without complications
CPT/HCPCS: 36415; 71045; 80048; 85025; 87486; 87581; 87633; 93005; 94640; 96365; 99285; J3475; J7613

== ENCOUNTER 2024-09-28 11:05 | Outpatient (CLI) | payer MEDICARE, SELFPAY ==
--- NOTE | 2024-09-28 | MM_ITS ---
WS: [id number] Bilateral screening 3D tomosynthesis digital mammogram, 09/28/2024 11:15 AM Clinical Data: ANNUAL MAMMOGRAM Comparison: 12/02/2016 Findings: No spiculated masses or clustered calcifications are seen. There are no secondary signs of carcinoma. MM/MM scr BI tomosynthesis [id number] Impression: Negative bilateral mammogram unchanged. Recommend annual screening mammograms. BIRADS: 1 - Negative. FOLLOW UP: 1 Year Follow-up DENSITY: There are scattered areas of fibroglandular density. The CAD store clerk checker was used
== END 2024-09-28 11:06 | disposition home or self-care (01) ==
LOC: RAD 11:07
PROVIDERS: PCP Nurse Practitioner Family; Visit Provider Nurse Practitioner Family
DX: Z12.31 Encounter for screening mammogram for malignant neoplasm of breast (principal)
CPT/HCPCS: 77063; 77067

== ENCOUNTER 2024-10-17 11:18 | Emergency (ER) | payer MEDICARE, SELFPAY ==
[2024-10-17] VITALS (7 sets, daily range): BP systolic 100–136; BP diastolic 60–89; PULSE 61–83; RESP 16–18; TEMP 36.8; O2SAT 90–98
--- OUTSIDE RECORDS SUMMARY | 2024-10-17 11:26 | XMS_ITS | Clinical Summary ---
Author Organization [facility] [place] Address [address] [place] [address] Care Team Providers Care Airline Hostess Name Role Phone Ela Leary MD Primary Care Provider Allergies Active Allergy Reactions Criticality Noted Date Comments Codeine Hives,Other (See Comments) High 07/03/2009 Furosemide Hives High 07/03/2009 Methylprednisolone Headache High 09/01/2012 Headache, breathing, chestpain Morphine Other (See Comments) 03/08/2018 Per pt chest tightness, problems breathing Medications OXYMETAZOLINE HCL (NASAL SPRAY BOTH NOSTRIL) Administer in each nostril. Active montelukast (SINGULAIR) 10 mg Oral tablet Take 10 mg by mouth daily at bedtime. Active aspirin (ECOTRIN EC) 81 mg Tablet, Delayed Release (E.C.) Take 162 mg by mouth daily. Active albuterol 90 mcg/Actuation HFA inhalerIndication s:Asthma, mild intermittent, uncomplicated Take 2 Puffs by inhalation every 6 hours as needed for Respiration. 8.5 Gram 3 4 Active ipratropium-albut merari (DUONEB) 0.5 mg-3 mg(2.5 mg base)/3 mL Solution for NebulizationIndic ations:Asthma, mild intermittent, uncomplicated Take 3 mL by inhalation every 12 hours as needed for Shortness of Breath. 90 mL 3 5 Active simvastatin (ZOCOR) 10 mg tablet Take 5 mg by mouth daily at bedtime. Active metFORMIN (GLUCOPHAGE) 500 mg tablet Take 500 mg by mouth daily with breakfast. Active colchicine (COLCRYS) 0.6 mg tablet Take 0.6 mg by mouth daily. Has needed for gout Active HYDROcodone-aceta minophen (NORCO) 10-325 mg Tablet Take 1 Tablet by mouth every 4 hours as needed for Pain, Moderate. Has needed for gout Active spironolactone (ALDACTONE) 25 mg tabletIndications :Fluid retention,LV dysfunction TAKE 1 TABLET BY MOUTH EVERY DAY 30 Tablet 10 0 Active carvediloL (COREG) 6.25 mg tabletIndications :Fluid retention,LV dysfunction TAKE 1 TABLET BY MOUTH TWO TIMES DAILY 60 Tablet 10 0 Active trandolapriL (MAVIK) 4 mg TabletIndications :LV dysfunction TAKE 1 TABLET BY MOUTH EVERY DAY 30 Tablet 10 0 Active torsemide (DEMADEX) 20 mg tabletIndications :LV dysfunction TAKE 1 TABLET BY MOUTH EVERY DAY 30 Tablet 10 0 Active Active Problems Problem Noted Date Diagnosed Date Morbid obesity due to excess calories 01/28/2016 LV dysfunction 09/01/2012 Sleep disorder breathing 08/13/2010 Asthma 07/03/2009 PFO (patent foramen ovale) 07/03/2009 Chest tightness 07/03/2009 MR (mitral regurgitation) 07/03/2009 Immunizations Immunization Administration Dates Next Due (PNEUMOVAX 23)(50 YRS UP) PN EUMOCOCCAL POLYSACCHARIDE (PPV23) 0.5 ML, IM 09/04/1998 (TDVAX)(7 YRS UP) TETANUS AN D DIPHTHERIA TOXOIDS, ADSORBED (2 LF OF TETANUS TOXOID AND 2 LF OF DIPHTHERIA TOXOID), 0.5ML (PF), IM 04/27/1997 Social History Tobacco Use Types Packs/Day Years Used Date Smoking Tobacco: Never Smokeless Tobacco: Never Tobacco Cessation:Counseling Given: No Alcohol Use Standard Drinks/Week Comments No 0 (1 standard drink = 0.6 oz pur e alcohol) Comments No Sex and Gender Information Value Date Recorded Sex Assigned at Not on file Legal Sex Female 3:56 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 DRAFTER 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 Gender Identity Not on file Sexual Orientation Not on file Last Filed Vital Signs Vital Sign Reading Time Taken Comments Blood Pressure 130/68 03/10/2019 10:14 AM PIN DRAFTER OPERATOR Pulse 60 03/10/2019 10:14 AM PIN DRAFTER OPERATOR Temperature - - Respiratory Rate - - Oxygen Saturation - - Inhaled Oxygen Concentration - - Weight 126.1 kg (278 lb) 03/10/2019 10:14 AM PIN DRAFTER OPERATOR Height 149.9 cm (4' 11 ) 03/10/2019 10:14 AM PIN DRAFTER OPERATOR Body Mass Index 56.15 03/10/2019 10:14 AM PIN DRAFTER OPERATOR Plan of Treatment Health Maintenance Due Date Last Done Comments Pre-Diabetes and Diabetes Screening 1960 DTAP/TDAP/TD VACCINES (1 - Tdap) 04/28/1997 04/27/18 98 BREAST CANCER SCREENING 1999 PNEUMOCOCCAL VACCINE 50+ YEARS (2 of 2 - PCV) 09/05/19 00 09/04/1998 COLORECTAL SCREENING 02/07/2004 Colorectal Cancer Screening 02/07/2004 FIT-DNA Q 3 years 02/07/2004 FIT/FOBT Q 1 year 02/07/2004 Flex Sig/CT Colonography Q 5 years 02/07/2004 ZOSTER VACCINE (1 of 2) 2009 RSV VACCINE (60+ or ) (1 - Risk 60-74 years 1-dose series) 2019 OSTEOPOROSIS SCREENING 02/07/2024 INFLUENZA VACCINE (#1) 2024 Insurance [place] [id number] [facility] DUAL COMPLETE MCR PPO D-SNP Care Teams Airline Hostess Relationship Specialty Start Date End Date Ela Leary MD [address] [place] [phone] PCP - General Family Practice 10/26/16
--- OUTSIDE RECORDS SUMMARY | 2024-10-17 11:26 | XMS_ITS | Encounter Summary ---
Author Organization [facility] Address [address] [place] [address] Care Team Providers Care Coating Mixer Tender Name Role Phone Ela Leary MD Primary Care Provider Encounter Details Date Type Department Care Team (Latest Contact Info) Description 05/22/1998 Outpatient Historical [facility] Layo Rose Jr., MD [address] [place] [address] Unspecified pleural effusion (Primary Dx) Social History Tobacco Use Types Packs/Day Years Used Date Smoking Tobacco: Never Assessed Comments Unknown Sex and Gender Information Value Date Recorded Sex Assigned at Not on file Legal Sex Female 3:56 AM PUMP HOUSE 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
--- OUTSIDE RECORDS SUMMARY | 2024-10-17 11:26 | XMS_ITS | Encounter Summary ---
Author Organization [facility] Address [address] [place] [address] Care Team Providers Care Open Hearth Worker Name Role Phone Ela Leary MD Primary Care Provider Encounter Details Date Type Department Care Team (Latest Contact Info) Description 05/26/2001 Outpatient Historical [facility] Cardiology [facility] [address] [place] [address] Al Diaz MD [address] [address] [place] [address] Mitral valve disorder (Primary Dx) Social History Tobacco Use Types Packs/Day Years Used Date Smoking Tobacco: Never Assessed Comments Unknown Sex and Gender Information Value Date Recorded Sex Assigned at Not on file Legal Sex Female 3:56 AM DELINQUENCY PREVENTION SOCIAL WORKER Gender Identity Not on file Sexual Orientation Not on file documented as of this encounter Plan of Treatment Not on file documented as of this encounter Visit Diagnoses Diagnosis Mitral valve disorder- Primary Mitral valve disorders documented in this encounter Care Teams Open Hearth Worker Relationship Specialty Start Date End Date Ela Leary MD [address] [place] [phone] PCP - General Family Practice 10/26/16 documented as of this encounter
--- OUTSIDE RECORDS SUMMARY | 2024-10-17 11:26 | XMS_ITS | Encounter Summary ---
Author Organization [facility] Address [address] [place] [address] Care Team Providers Care Communications Agent Name Role Phone Ela Leary MD Primary Care Provider Encounter Details Date Type Department Care Team (Latest Contact Info) Description 11/14/1998 Outpatient Historical [facility] Cardiology- [place] [address] [place] [address] Mane Prater MD [address] [facility] [address] [place] [address] Unspecified transient cerebral ischemia (Primary Dx); Mitral stenosis with insufficiency Social History Tobacco Use Types Packs/Day Years Used Date Smoking Tobacco: Never Assessed Comments Unknown Sex and Gender Information Value Date Recorded Sex Assigned at Not on file Legal Sex Female 3:56 AM RISK COMPLIANCE ANALYST Gender Identity Not on file Sexual Orientation Not on file documented as of this encounter Plan of Treatment Not on file documented as of this encounter Visit Diagnoses Diagnosis Unspecified transient cerebral ischemia- Primary Mitral stenosis with insufficiency documented in this encounter Care Teams Communications Agent Relationship Specialty Start Date End Date Ela Leary MD [address] [place] [phone] PCP - General Family Practice 10/26/16 documented as of this encounter
--- OUTSIDE RECORDS SUMMARY | 2024-10-17 11:26 | XMS_ITS | Encounter Summary ---
Author Organization [facility] Address [address] [place] [address] Care Team Providers Care Payroll Technician Name Role Phone Ela Leary MD Primary Care Provider Encounter Details Date Type Department Care Team (Latest Contact Info) Description 04/26/1998 Outpatient Historical [facility] Conrad Bowen MD [address] [place] [address] Bronchitis, not specified as acute or chronic (Primary Dx); Nonallopathic lesion of thoracic region, not elsewhere classified; Other dyspnea and respiratory abnormality Social History Tobacco Use Types Packs/Day Years Used Date Smoking Tobacco: Never Assessed Comments Unknown Sex and Gender Information Value Date Recorded Sex Assigned at Not on file Legal Sex Female 3:56 AM DIRECTOR SECURITY MANAGEMENT Gender Identity Not on file Sexual Orientation Not on file documented as of this encounter Plan of Treatment Not on file documented as of this encounter Visit Diagnoses Diagnosis Bronchitis, not specified as acute or chronic- Primary Nonallopathic lesion of thoracic region, not elsewhere classified Other dyspnea and respiratory abnormality documented in this encounter Care Teams Payroll Technician Relationship Specialty Start Date End Date Ela Leary MD [address] [place] [phone] PCP - General Family Practice 10/26/16 documented as of this encounter
--- OUTSIDE RECORDS SUMMARY | 2024-10-17 11:26 | XMS_ITS | Encounter Summary ---
Author Organization [facility] Address [address] [place] [address] Care Team Providers Care Soft Drink Powder Mixer Name Role Phone Ela Leary MD Primary Care Provider Encounter Details Date Type Department Care Team (Latest Contact Info) Description 09/26/1998 Outpatient Historical [facility] Cardiology- [place] [address] [place] [address] Mane Prater MD [address] [facility] [address] [place] [address] Other primary cardiomyopathies (CMS/HCC) (Primary Dx); Congestive heart failure, unspecified (CMS/HCC); Unspecified essential hypertension; Mitral stenosis with insufficiency Social History Tobacco Use Types Packs/Day Years Used Date Smoking Tobacco: Never Assessed Comments Unknown Sex and Gender Information Value Date Recorded Sex Assigned at Not on file Legal Sex Female 3:56 AM 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 Gender Identity Not on file Sexual Orientation Not on file documented as of this encounter Plan of Treatment Not on file documented as of this encounter Visit Diagnoses Diagnosis Other primary cardiomyopathies (CMS/HCC)- Primary Other primary cardiomyopathies Congestive heart failure, unspecified (CMS/HCC) Congestive heart failure, unspecified Unspecified essential hypertension Mitral stenosis with insufficiency documented in this encounter Care Teams Soft Drink Powder Mixer Relationship Specialty Start Date End Date Ela Leary MD [address] [place] [place] [id number] PCP - General Family Practice 10/26/16 documented as of this encounter
--- OUTSIDE RECORDS SUMMARY | 2024-10-17 11:26 | XMS_ITS | Encounter Summary ---
Author Organization [facility] Address [address] [place] [address] Care Team Providers Care Soliciting Freight Agent Name Role Phone Ela Leary MD Primary Care Provider Encounter Details Date Type Department Care Team (Latest Contact Info) Description 01/25/2006 Outpatient [facility] [address] [place] [address] Alex Manzanares MD NO ADDRESS ON FILE Rheumatic Mitral Insufficiency (Primary Dx); Ventricular Sept Defect Social History Tobacco Use Types Packs/Day Years Used Date Smoking Tobacco: Never Assessed Comments Unknown Sex and Gender Information Value Date Recorded Sex Assigned at Not on file Legal 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
--- OUTSIDE RECORDS SUMMARY | 2024-10-17 11:26 | XMS_ITS | Encounter Summary ---
Author Organization [facility] Address [address] [place] [address] Care Team Providers Care Integration Technician Name Role Phone Ela Leary MD Primary Care Provider Encounter Details Date Type Department Care Team (Latest Contact Info) Description 04/19/1998 Outpatient Historical [facility] Conrad Bowen MD [address] [place] [address] Abdominal pain, unspecified site (Primary Dx); Unspecified asthma(493.90) Social History Tobacco Use Types Packs/Day Years Used Date Smoking Tobacco: Never Assessed Comments Unknown Sex and Gender Information Value Date Recorded Sex Assigned at Not on file Legal Sex Female 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
--- OUTSIDE RECORDS SUMMARY | 2024-10-17 11:26 | XMS_ITS | Clinical Summary ---
Author Organization [facility] Address [address] [facility] Attn: [place] [address] Care Team Providers Care Credit Verification Clerk Name Role Phone Ela Leary MD Primary Care Provider Allergies Active Allergy Reactions Criticality Noted Date Comments Codeine Hives,Other (See Comments) High 07/03/2009 Furosemide Hives High 07/03/2009 Methylprednisolone Headache High 09/01/2012 Headache, breathing, chestpain Morphine Other (See Comments) 03/08/2018 Per pt chest tightness, problems breathing Medications simvastatin (ZOCOR) 10 mg tablet Take 5 mg by mouth daily at bedtime. 9 Active colchicine (COLCRYS) 0.6 mg tablet Take 0.6 mg by mouth daily. Has needed for gout 0 Active HYDROcodone-aceta minophen (NORCO) 10-325 mg Tablet Take 1 Tablet by mouth every 4 hours as needed for Pain, Moderate. Has needed for gout 0 Active spironolactone (ALDACTONE) 25 mg tabletIndications :Fluid retention,LV dysfunction TAKE 1 TABLET BY MOUTH EVERY DAY 30 Tablet 10 0 Active trandolapriL (MAVIK) 4 mg TabletIndications :LV dysfunction TAKE 1 TABLET BY MOUTH EVERY DAY 30 Tablet 10 0 Active carvediloL (COREG) 6.25 mg tabletIndications :Fluid retention,LV dysfunction TAKE 1 TABLET BY MOUTH TWO TIMES DAILY 60 Tablet 10 0 Active torsemide (DEMADEX) 20 mg tabletIndications :LV dysfunction TAKE 1 TABLET BY MOUTH EVERY DAY 30 Tablet 10 0 Active metFORMIN (GLUCOPHAGE) 500 mg tablet Take 500 mg by mouth daily with breakfast. 9 Active ipratropium-albut Angelo (DUONEB) 0.5 mg-3 mg(2.5 mg base)/3 mL Solution for NebulizationIndic ations:Asthma, mild intermittent, uncomplicated Take 3 mL by inhalation every 12 hours as needed for Shortness of Breath. 90 mL 3 5 Active Active Problems Problem Noted Date Diagnosed Date Morbid obesity due to excess calories 01/28/2016 LV dysfunction 09/01/2012 Sleep disorder breathing 08/13/2010 Asthma 07/03/2009 MR (mitral regurgitation) 07/03/2009 Chest tightness 07/03/2009 PFO (patent foramen ovale) 07/03/2009 Encounters Date Type Department Care Team Description 09/20/2024 Abstract [facility] [address] [facility] [address] [place] [address] Shanda Menchaca FNP from Last 3 Months Immunizations Immunization Administration Dates Next Due (PNEUMOVAX 23)(50 YRS UP) PN EUMOCOCCAL POLYSACCHARIDE (PPV23) 0.5 ML, IM 09/04/1998 (TDVAX)(7 YRS UP) TETANUS AN D DIPHTHERIA TOXOIDS, ADSORBED (2 LF OF TETANUS TOXOID AND 2 LF OF DIPHTHERIA TOXOID), 0.5ML (PF), IM 04/27/1997 Social History Tobacco Use Types Packs/Day Years Used Date Smoking Tobacco: Never Smokeless Tobacco: Never Alcohol Use Standard Drinks/Week Comments No 0 (1 standard drink = 0.6 oz pur e alcohol) Comments Unknown Sex and Gender Information Value Date Recorded Sex Assigned at Not on file Legal Sex Female 3:49 AM TECHNICAL ASSOC Gender Identity Not on file Sexual Orientation Not on file Last Filed Vital Signs Vital Sign Reading Time Taken Comments Blood Pressure 130/68 03/10/2019 10:14 AM TECHNICAL ASSOC Pulse 60 03/10/2019 10:14 AM TECHNICAL ASSOC Temperature - - Respiratory Rate - - Oxygen Saturation - - Inhaled Oxygen Concentration - - Weight 126.1 kg (278 lb) 03/10/2019 10:14 AM TECHNICAL ASSOC Height 149.9 cm (4' 11 ) 03/10/2019 10:14 AM TECHNICAL ASSOC Body Mass Index 56.15 03/10/2019 10:14 AM TECHNICAL ASSOC Plan of Treatment Health Maintenance Due Date [...] SCREENING 02/07/2024 INFLUENZA VACCINE (#1) 2024 Insurance [facility] [id number] Care Teams Credit Verification Clerk Relationship Specialty Start Date End Date Ela Leary MD [address] [place] [phone] PCP - General Family Practice 10/26/16
--- OUTSIDE RECORDS SUMMARY | 2024-10-17 11:26 | XMS_ITS | Encounter Summary ---
Author Organization [facility] Address [address] [place] [address] Care Team Providers Care Gusset Stitcher Name Role Phone Ela Leary MD Primary Care Provider Encounter Details Date Type Department Care Team (Latest Contact Info) Description 05/10/2000 Outpatient Historical [facility] Cardiology- [place] [address] [place] [address] Mane Prater MD [address] [facility] [address] [place] [address] Benign hypertension (Primary Dx); Mitral stenosis with insufficiency Social History Tobacco Use Types Packs/Day Years Used Date Smoking Tobacco: Never Assessed Comments Unknown Sex and Gender Information Value Date Recorded Sex Assigned at Not on file Legal Sex Female 3:56 AM OR RN Gender Identity Not on file Sexual Orientation Not on file documented as of this encounter Plan of Treatment Not on file documented as of this encounter Visit Diagnoses Diagnosis Benign hypertension- Primary Essential hypertension, benign Mitral stenosis with insufficiency documented in this encounter Care Teams Gusset Stitcher Relationship Specialty Start Date End Date Ela Leary MD [address] [place] [phone] PCP - General Family Practice 10/26/16 documented as of this encounter
--- OUTSIDE RECORDS SUMMARY | 2024-10-17 11:26 | XMS_ITS | Encounter Summary ---
Author Organization [facility] Address [address] [place] [address] Care Team Providers Care Lead Instructor/Flight Attendant Name Role Phone Ela Leary MD Primary Care Provider Encounter Details Date Type Department Care Team (Late st Contact Info) Description 07/03/2009 Ancillary Orders [facility]- [place] [address] [facility] [address] [place] [phone] Mane Prater MD [address] [facility] [address] [place] [address] Mitral Valve Disorders Social History Tobacco Use Types Packs/Day Years Used Date Smoking Tobacco: Never Alcohol Use Standard Drinks/Week Comments Not Asked 0 (1 standard drink = 0.6 oz pur e alcohol) Comments Unknown Sex and Gender Information Value Date Recorded Sex Assigned at Not on file Legal Sex Female 3:56 AM SUPPORT SERVICE TECH Gender Identity Not on file Sexual Orientation Not on file documented as of this encounter Plan of Treatment Not on file documented as of this encounter Results * ECHO COMPLETE (07/03/2009 1:13 PM CDT) 07/03/2009 11:5 3 AM CDT Narrative INTERFACE SYSTEM - 07/03/2009 3:[address] [facility] - Cardiology [address] [facility] [address] [place] [address] Transthoracic Echocardiography Patient: Chely Katz Study ID: ECHOCARDIOGRAM C Gender: F : 1960 Age: 49 Location: Room: Height: 149.9cm Study Date: 07/03/2009 Patient status: P Weight: 121.6kg Study Time: 11:53 AM BSA: 2.09m^2 *Ordering:Mane SequeiraInterpreting:*Hector DenisAssembler Arranger:Jossy Robles Diagnoses supporting medical necessity: Mitral lnsufficiency. Procedure information: Comparison was made to the study of May 18, 2007. Study status: Routine. Procedure: Transthoracic echocardiography. Image quality was adequate. Scanning was performed from the parasternal, apical, subcostal, and suprasternal notch acoustic windows. Study components: M-mode, complete 2D, complete spectral Doppler, and color Doppler. Height: Height: 149.9cm. Height: 59in. Weight: Weight: 121.6kg. Weight: 267.4lb. Body mass index: BMI: 54.1kg/m^2. Body surface area: BSA: 2.09m^2. Patient status: Outpatient. Location: Echo laboratory. Summary and Conclusion: - Left ventricle: The cavity size was normal. Wall thickness was increased in a pattern of mild LVH. Systolic function was at the lower limits of normal. The estimated ejection fraction was in the range of 50% to 55%. Wall motion was normal; there were no regional wall motion abnormalities. Left ventricular diastolic function parameters were normal. - Aortic valve: Trileaflet; normal thickness leaflets. Valve area: 1.39cm^2(VTI). Valve area: 1.4cm^2 (Vmax). - Mitral valve: Mild regurgitation. - Right ventricle: The cavity size was normal. Systolic function was normal. - Atrial septum: There was a possible patent foramen ovale. There was no atrial level shunt. - Pulmonary arteries: Systolic pressure was mildly increased. PA peak pressure: 44mm Hg (S). Cardiac Anatomy: Left ventricle: The cavity size was normal. Wall thickness was increased in a pattern of mild LVH. Systolic function was at the lower limits of normal. The estimated ejection fraction was in the range of 50% to 55%. Wall motion was normal; there were no regional wall motion abnormalities. Left ventricular diastolic function parameters were normal. Right ventricle: The cavity size was normal. Systolic function was normal. Systolic pressure was within the normal range. Left atrium: The atrium was normal in size. Right atrium: The atrium was normal in size. Atrial septum: There was a possible patent foramen ovale. There was no atrial level shunt. Aortic valve: Trileaflet; normal thickness leaflets. Mobility was not restricted. Doppler: There was no stenosis. No significant regurgitation. VTI ratio of LVOT to aortic valve: 0.46. Valve area: 1.39cm^2(VTI). Indexed valve area: 0.67cm^2/m^2 (VTI). Peak velocity ratio of LVOT to aortic valve: 0.47. Valve area: 1.4cm^2 (Vmax). Indexed valve area: 0.67cm^2/m^2 (Vmax). Mean gradient: 8mm Hg (S). Peak gradient: 17mm Hg (S). Mitral valve: Mildly thickened leaflets. . Mobility was not restricted. No echocardiographic evidence for prolapse. Doppler: There was no evidence for stenosis. Mild regurgitation. Peak gradient: 3mm Hg (D). Tricuspid valve: Structurally normal valve. Mobility was not restricted. Doppler: There was no evidence for stenosis. Mild regurgitation. Pulmonic valve: Not well visualized. Doppler: There was no evidence for stenosis. No significant regurgitation. Pericardium: There was no pericardial effusion. Aorta: Aortic root: The visualized portion of the aortic root was normal in size. Aortic arch: The visualized portion of the aortic arch was normal in size. Pulmonary artery: Systolic pressure was mildly increased. Systemic veins: Inferior vena cava: The vessel was normal in size. Intracardiac mass/thrombus: No intracavitary masses or thrombi detected. 2D measurements Normal Left ventricle LV internal dimension, ED, chordal level, PLAX 49.9 mm 43-52 LV internal dimension, ES, chordal level, PLAX *41.8 mm 23-38 Fractional shortening, chordal level, PLAX *16 % >29 Major axis, ED, A4C 81.9 mm 63-95 Major axis, ES, A4C 73.7 mm 46-85 Area, ED, A4C 33.74 cm^2 17.7-47.3 Area, ES, A4C 23.31 cm^2 7.9-31.5 Fractional area change, A4C 31 % --------- Major axis, ED, A2C 80.5 mm 68-95 Major axis, ES, A2C 72.3 mm 44-78 LV posterior wall thickness, ED 12.2 mm --------- IVS/LVPW ratio, ED 1.01 <1.3 Volume, ED, MOD, 1-plane 113.3 ml --------- Volume, ES, MOD, 1-plane 61.3 ml --------- Heart rate, MOD, 1-plane 75 bpm --------- Ejection fraction, MOD, 1-plane 45.9 % --------- Stroke volume, MOD, 1-plane 52.1 ml --------- Cardiac output, MOD, 1-plane 3.9 L/min --------- Volume index, ED, MOD, 1-plane 54 ml/m^2 --------- Volume index, ES, MOD, 1-plane 29 ml/m^2 --------- Cardiac index, MOD, 1-plane 1.9 L/(min-m^2) --------- Stroke index, MOD, 1-plane 24.9 ml/m^2 --------- Volume, ED, MOD, 2-plane 105.2 ml --------- Volume, ES, MOD, 2-plane 58 ml --------- Ejection fraction, MOD, 2-plane 44.9 % --------- Stroke volume, MOD, 2-plane 47.2 ml --------- Volume index, ED, MOD, 2-plane 50 ml/m^2 --------- Volume index, ES, MOD, 2-plane 28 ml/m^2 --------- Stroke index, MOD, 2-plane 22.6 ml/m^2 --------- Ventricular septum Septal thickness, ED 12.3 mm --------- LVOT Diameter, S 19.6 mm --------- Area 3.02 cm^2 --------- Aorta Root diameter, ED 27.7 mm --------- Left atrium Anterior-posterior dimension ES, PLAX 36.7 mm 23-38 Superior-inferior dimension ES, PLAX 57.5 mm 31-68 Area ES, A4C 16.95 cm^2 8.8-23.4 Right ventricle RV internal dimension, ED, PLAX 25.2 mm 19-38 Doppler measurements Normal Main pulmonary artery Pressure, S *44 mm Hg =30 Left ventricle IVRT 100 ms 60-100 LVOT Peak velocity, S 96 cm/s --------- VTI, S 20.2 cm --------- Aortic valve Peak velocity, S 206 cm/s --------- Mean velocity, S 63.8 cm/s --------- VTI, S 44 cm --------- Mean gradient, S 8 mm Hg --------- Peak gradient, S 17 mm Hg --------- VTI ratio, LVOT/AV 0.46 --------- Valve area, VTI 1.39 cm^2 --------- Valve area index, VTI 0.67 cm^2/m^2 --------- Peak velocity ratio, LVOT/AV 0.47 --------- Valve area, Vmax 1.4 cm^2 --------- Valve area index, Vmax 0.67 cm^2/m^2 --------- Mitral valve Peak E-wave velocity 82 cm/s --------- Peak A-wave velocity 111 cm/s --------- Deceleration time *348 ms 150-230 Peak gradient, D 3 mm Hg --------- Peak E/A ratio 0.74 --------- Tricuspid valve Regurgitant peak velocity 291 cm/s --------- Peak RV-RA gradient, S 34 mm Hg --------- Right ventricle RV pressure, S *44 mm Hg <30 Legend: Mean values are shown as u=mean value. Asterisk (*) weaver values outside specified normal range. [facility] Lab is accredited with the Intersocietal Commission for the Accreditation of Echocardiography Laboratories (ICAEL) Prepared and Electronically Authenticated Hector Denis [id number] Procedure Note Nik Denis MD - 07/03/2009 [facility] - Cardiology [address] [facility] [address] [place] [id number] Transthoracic Echocardiography Patient: Chely Katz Study ID: ECHOCARDIOGRAM C Gender: F : 1960 Age: 49 Location: Room: Height: 149.9cm Study Date: 07/03/2009 Patient status: P Weight: 121.6kg Study Time: 11:53 AM BSA: 2.09m^2 *Ordering:* Mane Prater *Interpreting:*Hector Denis *Assembler Arranger:Jossy Robles Diagnoses supporting medical necessity: Mitral lnsufficiency. Procedure information: Comparison was made to the study of May. Study status: Routine. Procedure: Transthoracic echocardiography. Image quality was adequate. Scanning was performed from the parasternal,apical, subcostal, and suprasternal notch acoustic windows. Study components: M-mode, complete 2D, complete spectral Doppler, and color Doppler.Height: Height: 149.9cm. Height: 59in. Weight: Weight: 121.6kg. Weight: 267.4lb. Body mass index: BMI: 54.1kg/m^2. Body surface area: BSA: 2.09m^2.Patient status: Outpatient. Location: Echo laboratory. Summary and Conclusion: - Left ventricle: The cavity size was normal. Wall thickness wasincreased in a pattern of mild LVH. Systolic function was at the lower limits of normal. The estimated ejection fraction was in the range of 50% to55%. Wall motion was normal; there were no regional wall motionabnormalities. Left ventricular diastolic function parameters were normal. - Aortic valve: Trileaflet; normal thickness leaflets. Valve area: 1.39cm^2(VTI). Valve area: 1.4cm^2 (Vmax). - Mitral valve: Mild regurgitation. - Right ventricle: The cavity size was normal. Systolic function was normal. - Atrial septum: There was a possible patent foramen ovale. There was no atrial level shunt. - Pulmonary arteries: Systolic pressure was mildly increased. PA peak pressure: 44mm Hg (S). Cardiac Anatomy: Left ventricle: The cavity size was normal. Wall thickness was increasedin a pattern of mild LVH. Systolic function was at the lower limits ofnormal. The estimated ejection fraction was in the range of 50% to 55%. Wallmotion was normal; there were no regional wall motion abnormalities. Left ventricular diastolic function parameters were normal. Right ventricle: The cavity size was normal. Systolic function wasnormal. Systolic pressure was within the normal range. Left atrium: The atrium was normal in size. Right atrium: The atrium was normal in size. Atrial septum: There was a possible patent foramen ovale. There was no atrial level shunt. Aortic valve: Trileaflet; normal thickness leaflets. Mobility was not restricted. Doppler: There was no stenosis. No significantregurgitation. VTI ratio of LVOT to aortic valve: 0.46. Valve area: 1.39cm^2(VTI).Indexed valve area: 0.67cm^2/m^2 (VTI). Peak velocity ratio of LVOT to aortic valve: 0.47. Valve area: 1.4cm^2 (Vmax). Indexed valve area:0.67cm^2/m^2 (Vmax). Mean gradient: 8mm Hg (S). Peak gradient: 17mm Hg (S). Mitral valve: Mildly thickened leaflets. . Mobility was not restricted.No echocardiographic evidence for prolapse. Doppler: There was no evidencefor stenosis. Mild regurgitation. Peak gradient: 3mm Hg (D). Tricuspid valve: Structurally normal valve. Mobility was not restricted. Doppler: There was no evidence for stenosis. Mild regurgitation. Pulmonic valve: Not well visualized. Doppler: There was no evidence for stenosis. No significant regurgitation. Pericardium: There was no pericardial effusion. Aorta: Aortic root: The visualized portion of the aortic root was normalin size. Aortic arch: The visualized portion of the aortic arch was normal insize. Pulmonary artery: Systolic pressure was mildly increased. Systemic veins: Inferior vena cava: The vessel was normal in size. Intracardiac mass/thrombus: No intracavitary masses or thrombi detected. 2D measurements Normal Left ventricle LV internal dimension, ED, chordal level, PLAX 49.9 mm 43-52 LV internal dimension, ES, chordal level, PLAX *41.8 mm 23-38 Fractional shortening, chordal level, PLAX *16 % >29 Major axis, ED, A4C 81.9 mm 63-95 Major axis, ES, A4C 73.7 mm 46-85 Area, ED, A4C 33.74 cm^217.7-47.3 Area, ES, A4C 23.31 cm^27.9-31.5 Fractional area change, A4C 31 %--------- Major axis, ED, A2C 80.5 mm 68-95 Major axis, ES, A2C 72.3 mm 44-78 LV posterior wall thickness, ED 12.2 mm--------- IVS/LVPW ratio, ED 1.01 <1.3 Volume, ED, MOD, 1-plane 113.3 ml--------- Volume, ES, MOD, 1-plane 61.3 ml--------- Heart rate, MOD, 1-plane 75 bpm--------- Ejection fraction, MOD, 1-plane 45.9 %--------- Stroke volume, MOD, 1-plane 52.1 ml--------- Cardiac output, MOD, 1-plane 3.9 L/min--------- Volume index, ED, MOD, 1-plane 54 ml/m^2--------- Volume index, ES, MOD, 1-plane 29 ml/m^2--------- Cardiac index, MOD, 1-plane 1.9 L/(min-m^2)--------- Stroke index, MOD, 1-plane 24.9 ml/m^2--------- Volume, ED, MOD, 2-plane 105.2 ml--------- Volume, ES, MOD, 2-plane 58 ml--------- Ejection fraction, MOD, 2-plane 44.9 %--------- Stroke volume, MOD, 2-plane 47.2 ml--------- Volume index, ED, MOD, 2-plane 50 ml/m^2--------- Volume index, ES, MOD, 2-plane 28 ml/m^2--------- Stroke index, MOD, 2-plane 22.6 ml/m^2--------- Ventricular septum Septal thickness, ED 12.3 mm--------- LVOT Diameter, S 19.6 mm--------- Area 3.02 cm^2--------- Aorta Root diameter, ED 27.7 mm--------- Left atrium Anterior-posterior dimension ES, PLAX 36.7 mm 23-38 Superior-inferior dimension ES, PLAX 57.5 mm 31-68 Area ES, A4C 16.95 cm^28.8-23.4 Right ventricle RV internal dimension, ED, PLAX 25.2 mm 19-38 Doppler measurements Normal Main pulmonary artery Pressure, S *44 mm Hg =30 Left ventricle IVRT 100 ms 60-100 LVOT Peak velocity, S 96 cm/s--------- VTI, S 20.2 cm--------- Aortic valve Peak velocity, S 206 cm/s--------- Mean velocity, S 63.8 cm/s--------- VTI, S 44 cm--------- Mean gradient, S 8 mm Hg--------- Peak gradient, S 17 mm Hg--------- VTI ratio, LVOT/AV 0.46--------- Valve area, VTI 1.39 cm^2--------- Valve area index, VTI 0.67 cm^2/m^2--------- Peak velocity ratio, LVOT/AV 0.47--------- Valve area, Vmax 1.4 cm^2--------- Valve area index, Vmax 0.67 cm^2/m^2--------- Mitral valve Peak E-wave velocity 82 cm/s--------- Peak A-wave velocity 111 cm/s--------- Deceleration time *348 ms 150-230 Peak gradient, D 3 mm Hg--------- Peak E/A ratio 0.74--------- Tricuspid valve Regurgitant peak velocity 291 cm/s--------- Peak RV-RA gradient, S 34 mm Hg--------- Right ventricle RV pressure, S *44 mm Hg <30 Legend: Mean values are shown as u=mean value. Asterisk (*) weaver values outside specified normal range. [facility] is accredited with the Intersocietal Commission for the Accreditation of Echocardiography Laboratories (ICAEL) Prepared and Electronically Authenticated Hector Denis [id number] us Mane Prater MD ORDERABLES Final Result INTERFACE SYSTEM Refer to clinic/hospital department documented in this encounter Visit Diagnoses Diagnosis Mitral valve disorders(424.0) Mitral valve disorders documented in this encounter Care Teams Lead Instructor/Flight Attendant Relationship Specialty Start Date End Date Ela Leary MD [address] [place] [phone] PCP - General Family Practice 10/26/16 documented as of this encounter
--- OUTSIDE RECORDS SUMMARY | 2024-10-17 11:26 | XMS_ITS | Encounter Summary ---
Author Organization [facility] Address [address] [place] [address] Care Team Providers Care Television Picture Tube Rebuilder Name Role Phone Ela Leary MD Primary Care Provider Encounter Details Date Type Department Care Team (Latest Contact Info) Description 09/04/1998 Outpatient Historical [facility] Layo Rose Jr., MD [address] [place] [address] Acute and subacute bacterial endocarditis (Primary Dx); Need for prophylactic vaccination against Streptococcus pneumoniae (pneumococcus) Social History Tobacco Use Types Packs/Day Years Used Date Smoking Tobacco: Never Assessed Comments Unknown Sex and Gender Information Value Date Recorded Sex Assigned at Not on file Legal Sex Female 3:56 AM FLY WINDER Gender Identity Not on file Sexual Orientation Not on file documented as of this encounter Plan of Treatment Not on file documented as of this encounter Visit Diagnoses Diagnosis Acute and subacute bacterial endocarditis- Primary Need for prophylactic vaccination against Streptococcus pneumoniae (pneumococcus) Need for prophylactic vaccination against streptococcus pneumoniae (pneumococcus) documented in this encounter Care Teams Television Picture Tube Rebuilder Relationship Specialty Start Date End Date Ela Leary MD [address] [place] [phone] PCP - General Family Practice 10/26/16 documented as of this encounter
--- OUTSIDE RECORDS SUMMARY | 2024-10-17 11:26 | XMS_ITS | Encounter Summary ---
Author Organization [facility] Address [address] [place] [address] Care Team Providers Care Editor Farm Journal Name Role Phone Ela Leary MD Primary Care Provider Encounter Details Date Type Department Care Team (Latest Contact Info) Description 05/10/1998 Outpatient Historical [facility] Layo Rose Jr., MD [address] [place] [address] Abdominal pain, unspecified site (Primary Dx); Other dyspnea and respiratory abnormality Social History Tobacco Use Types Packs/Day Years Used Date Smoking Tobacco: Never Assessed Comments Unknown Sex and Gender Information Value Date Recorded Sex Assigned at Not on file Legal Sex Female 3:56 AM FILENET ADMIN Gender Identity Not on file Sexual Orientation Not on file documented as of this encounter Plan of Treatment Not on file documented as of this encounter Visit Diagnoses Diagnosis Abdominal pain, unspecified site- Primary Other dyspnea and respiratory abnormality documented in this encounter Care Teams Editor Farm Journal Relationship Specialty Start Date End Date Ela Leary MD [address] [place] [phone] PCP - General Family Practice 10/26/16 documented as of this encounter
--- OUTSIDE RECORDS SUMMARY | 2024-10-17 11:26 | XMS_ITS | Encounter Summary ---
Author Organization [facility] Address [address] [place] [address] Care Team Providers Care Estimator Binding Name Role Phone Ela Leary MD Primary Care Provider Encounter Details Date Type Department Care Team (Late st Contact Info) Description 10/27/2004 Outpatient Historical [facility] Cardiology Ancillary Services[facility] [address] [place] [address] Shubham Smyth MD [address] [facility] [address] [place] [address] Mitral valve disorder (Primary Dx); BENIGN HYP HRT DIS W/O HRT FAIL Social History Tobacco Use Types Packs/Day Years Used Date Smoking Tobacco: Never Assessed Comments Unknown Sex and Gender Information Value Date Recorded Sex Assigned at Not on file Legal Sex Female 3:56 AM SPORTS MEDICINE COORDINATOR Gender Identity Not on file Sexual Orientation Not on file documented as of this encounter Plan of Treatment Not on file documented as of this encounter Visit Diagnoses Diagnosis Mitral valve disorder- Primary Mitral valve disorders Benign hypertensive heart disease without heart failure documented in this encounter Care Teams Estimator Binding Relationship Specialty Start Date End Date Ela Leary MD [address] [place] [phone] PCP - General Family Practice 10/26/16 documented as of this encounter
--- OUTSIDE RECORDS SUMMARY | 2024-10-17 11:26 | XMS_ITS | Encounter Summary ---
Author Organization [facility] Address [address] [place] [address] Care Team Providers Care Tax Senior Associate Name Role Phone Ela Leary MD Primary Care Provider Encounter Details Date Type Department Care Team (Latest Contact Info) Description 05/26/2001 Outpatient Historical [facility] Cardiology- [place] [address] [place] [address] Mane Prater MD [address] [facility] [address] [place] [address] PRIM CARDIOMYOPATHY NEC (CMS/HCC) (Primary Dx); Mitral valve disorder Social History Tobacco Use Types Packs/Day Years Used Date Smoking Tobacco: Never Assessed Comments Unknown Sex and Gender Information Value Date Recorded Sex Assigned at Not on file Legal Sex Female 3:56 AM LEGISLATIVE ADVOCATE Gender Identity Not on file Sexual Orientation Not on file documented as of this encounter Plan of Treatment Not on file documented as of this encounter Visit Diagnoses Diagnosis Other primary cardiomyopathies (CMS/HCC)- Primary Other primary cardiomyopathies Mitral valve disorder Mitral valve disorders documented in this encounter Care Teams Tax Senior Associate Relationship Specialty Start Date End Date Ela Leary MD [address] [place] [phone] PCP - General Family Practice 10/26/16 documented as of this encounter
--- OUTSIDE RECORDS SUMMARY | 2024-10-17 11:26 | XMS_ITS | Encounter Summary ---
Author Organization [facility] Address [address] [place] [address] Care Team Providers Care Grain Unloader Name Role Phone Ela Leary MD Primary Care Provider Encounter Details Date Type Department Care Team (Latest Contact Info) Description 01/25/2006 Outpatient Historical [facility] Cardiology- [place] [address] [place] [address] Amado Li, [facility] [address] [place] [address] Unspecified Hypertensive Heart Disease without Heart Failure (Primary Dx); Rheumatic Mitral Insufficiency Social History Tobacco Use Types Packs/Day Years Used Date Smoking Tobacco: Never Assessed Comments Unknown Sex and Gender Information Value Date Recorded Sex Assigned at Not on file Legal Sex Female 3:56 AM SILVERLIGHT DEVELOPER Gender Identity Not on file Sexual Orientation Not on file documented as of this encounter Plan of Treatment Not on file documented as of this encounter Visit Diagnoses Diagnosis Unspecified hypertensive heart disease without heart failure- Primary Rheumatic mitral insufficiency documented in this encounter Care Teams Grain Unloader Relationship Specialty Start Date End Date Ela Leary MD [address] [place] [phone] PCP - General Family Practice 10/26/16 documented as of this encounter
--- OUTSIDE RECORDS SUMMARY | 2024-10-17 11:26 | XMS_ITS | Encounter Summary ---
Author Organization [facility] Address [address] [place] [address] Care Team Providers Care Paving Inspector Name Role Phone Ela Leary MD Primary Care Provider Encounter Details Date Type Department Care Team (Late st Contact Info) Description 09/06/2003 Outpatient Historical [facility] Cardiology- [place] [address] [place] [address] Mane Prater MD [address] [facility] [address] [place] [address] BENIGN HYP HRT DIS W/O HRT FAIL (Primary Dx); MITR/AORTIC MULT INVOLV Social History Tobacco Use Types Packs/Day Years Used Date Smoking Tobacco: Never Assessed Comments Unknown Sex and Gender Information Value Date Recorded Sex Assigned at Not on file Legal Sex Female 3:56 AM BALLPOINT 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
--- OUTSIDE RECORDS SUMMARY | 2024-10-17 11:26 | XMS_ITS | Encounter Summary ---
Author Organization [facility] Address [address] [place] [address] Care Team Providers Care Yarn Carrier Name Role Phone Ela Leary MD Primary Care Provider Encounter Details Date Type Department Care Team (Late st Contact Info) Description 09/06/2003 Outpatient Historical [facility] Cardiology Ancillary Services-[place] [address] [place] [address] Shubham Smyth MD [address] [place] [address] Mitral valve disorder (Primary Dx) Social History Tobacco Use Types Packs/Day Years Used Date Smoking Tobacco: Never Assessed Comments Unknown Sex and Gender Information Value Date Recorded Sex Assigned at Not on file Legal Sex Female 3:56 AM RETAIL SERVICE SPECIALIST Gender Identity Not on file Sexual Orientation Not on file documented as of this encounter Plan of Treatment Not on file documented as of this encounter Visit Diagnoses Diagnosis Mitral valve disorder- Primary Mitral valve disorders documented in this encounter Care Teams Yarn Carrier Relationship Specialty Start Date End Date Ela Leary MD [address] [place] [phone] PCP - General Family Practice 10/26/16 documented as of this encounter
--- OUTSIDE RECORDS SUMMARY | 2024-10-17 11:26 | XMS_ITS | Encounter Summary ---
Author Organization [facility] Address [address] [place] [address] Care Team Providers Care Framing Mill Operator Helper Name Role Phone Ela Leary MD Primary Care Provider Encounter Details Date Type Department Care Team (Late st Contact Info) Description 06/01/2002 Outpatient Historical [facility] Cardiology Ancillary Services-[place] [address] [place] [address] Shubham Smyth MD [address] [place] [address] Mitral valve disorder (Primary Dx) Social History Tobacco Use Types Packs/Day Years Used Date Smoking Tobacco: Never Assessed Comments Unknown Sex and Gender Information Value Date Recorded Sex Assigned at Not on file Legal Sex Female 3:56 AM INSULATION CUTTER AND FORMER Gender Identity Not on file Sexual Orientation Not on file documented as of this encounter Plan of Treatment Not on file documented as of this encounter Visit Diagnoses Diagnosis Mitral valve disorder- Primary Mitral valve disorders documented in this encounter Care Teams Framing Mill Operator Helper Relationship Specialty Start Date End Date Ela Leary MD [address] [place] [phone] PCP - General Family Practice 10/26/16 documented as of this encounter
--- OUTSIDE RECORDS SUMMARY | 2024-10-17 11:26 | XMS_ITS | Encounter Summary ---
Author Organization [facility] Address [address] [place] [address] Care Team Providers Care Inspector Returned Materials Name Role Phone Ela Leary MD Primary Care Provider Encounter Details Date Type Department Care Team (Latest Contact Info) Description 08/16/1998 Outpatient Historical [facility] Layo Rose Jr., MD [address] [place] [address] Dietary surveil/summer camp counselor (Primary Dx) Social History Tobacco Use Types Packs/Day Years Used Date Smoking Tobacco: Never Assessed Comments Unknown Sex and Gender Information Value Date Recorded Sex Assigned at Not on file Legal Sex Female 3:56 AM HYDRAULIC MODELING ENGINEER Gender Identity Not on file Sexual Orientation Not on file documented as of this encounter Plan of Treatment Not on file documented as of this encounter Visit Diagnoses Diagnosis Dietary surveil/summer camp counselor- Primary Dietary surveillance and counseling documented in this encounter Care Teams Inspector Returned Materials Relationship Specialty Start Date End Date Ela Leary MD [address] [place] [phone] PCP - General Family Practice 10/26/16 documented as of this encounter
--- OUTSIDE RECORDS SUMMARY | 2024-10-17 11:26 | XMS_ITS | Encounter Summary ---
Author Organization [facility] Address [address] [place] [address] Care Team Providers Care Control Board Operator Name Role Phone Ela Leary MD Primary Care Provider Encounter Details Date Type Department Care Team (Late st Contact Info) Description 09/26/1998 Outpatient Historical [facility] Cardiology Ancillary Services-[place] [address] [place] [address] Mane Prater MD [address] [place] [address] Mitral valve disorder (Primary Dx) Social History Tobacco Use Types Packs/Day Years Used Date Smoking Tobacco: Never Assessed Comments Unknown Sex and Gender Information Value Date Recorded Sex Assigned at Not on file Legal Sex Female 3:56 AM CLINICAL EXERCISE SPECIALIST Gender Identity Not on file Sexual Orientation Not on file documented as of this encounter Plan of Treatment Not on file documented as of this encounter Visit Diagnoses Diagnosis Mitral valve disorder- Primary Mitral valve disorders documented in this encounter Care Teams Control Board Operator Relationship Specialty Start Date End Date Ela Leary MD [address] [place] [place] [phone] PCP - General Family Practice 10/26/16 documented as of this encounter
--- OUTSIDE RECORDS SUMMARY | 2024-10-17 11:26 | XMS_ITS | Encounter Summary ---
Author Organization [facility] Address [address] [place] [address] Care Team Providers Care Folder Tier Name Role Phone Ela Leary MD Primary Care Provider Encounter Details Date Type Department Care Team (Latest Contact Info) Description 06/26/1998 Outpatient Historical [facility] Layo Rose Jr., MD [address] [place] [address] Unspecified pleural effusion (Primary Dx); Obesity, unspecified Social History Tobacco Use Types Packs/Day Years Used Date Smoking Tobacco: Never Assessed Comments Unknown Sex and Gender Information Value Date Recorded Sex Assigned at Not on file Legal Sex Female 3:56 AM COMMISSARY SUPERINTENDENT Gender Identity Not on file Sexual Orientation Not on file documented as of this encounter Plan of Treatment Not on file documented as of this encounter Visit Diagnoses Diagnosis Unspecified pleural effusion- Primary Obesity, unspecified documented in this encounter Care Teams Folder Tier Relationship Specialty Start Date End Date Ela Leary MD [address] [place] [phone] PCP - General Family Practice 10/26/16 documented as of this encounter
--- OUTSIDE RECORDS SUMMARY | 2024-10-17 11:26 | XMS_ITS | Encounter Summary ---
Author Organization [facility] Address [address] [place] [address] Care Team Providers Care Research Physician Name Role Phone Ela Leary MD Primary Care Provider Encounter Details Date Type Department Care Team (Late st Contact Info) Description 06/01/2002 Outpatient Historical [facility] Cardiology- [place] [address] [place] [address] Mane Prater MD [address] [facility] [address] [place] [address] RHEUMATIC MITRAL INSUFF (Primary Dx) Social History Tobacco Use Types Packs/Day Years Used Date Smoking Tobacco: Never Assessed Comments Unknown Sex and Gender Information Value Date Recorded Sex Assigned at Not on file Legal Sex Female 3:56 AM PODIATRIC ASSISTANT Gender Identity Not on file Sexual Orientation Not on file documented as of this encounter Plan of Treatment Not on file documented as of this encounter Visit Diagnoses Diagnosis Rheumatic mitral insufficiency- Primary documented in this encounter Care Teams Research Physician Relationship Specialty Start Date End Date Ela Leary MD [address] [place] [phone] PCP - General Family Practice 10/26/16 documented as of this encounter
--- OUTSIDE RECORDS SUMMARY | 2024-10-17 11:26 | XMS_ITS | Encounter Summary ---
Author Organization [facility] Address [address] [place] [address] Care Team Providers Care Pump House Operator Name Role Phone Ela Leary MD Primary Care Provider Encounter Details Date Type Department Care Team (Late st Contact Info) Description 10/27/2004 Outpatient Historical [facility] Cardiology- [place] [address] [place] [address] Mane Prater MD [address] [place] [address] RHEUMATIC MITRAL INSUFF (Primary Dx); BENIGN HYP HRT DIS W/O HRT FAIL Social History Tobacco Use Types Packs/Day Years Used Date Smoking Tobacco: Never Assessed Comments Unknown Sex and Gender Information Value Date Recorded Sex Assigned at Not on file Legal Sex Female 3:56 AM CLINICAL TRAINER Gender Identity Not on file Sexual Orientation Not on file documented as of this encounter Plan of Treatment Not on file documented as of this encounter Visit Diagnoses Diagnosis Rheumatic mitral insufficiency- Primary Benign hypertensive heart disease without heart failure documented in this encounter Care Teams Pump House Operator Relationship Specialty Start Date End Date Ela Leary MD [address] [place] [phone] PCP - General Family Practice 10/26/16 documented as of this encounter
--- OUTSIDE RECORDS SUMMARY | 2024-10-17 11:26 | XMS_ITS | Encounter Summary ---
Author Organization [facility] Address [address] [place] [address] Care Team Providers Care Plodding Machine Operator Name Role Phone Ela Leary MD Primary Care Provider Encounter Details Date Type Department Care Team (Latest Contact Info) Description 07/12/1998 Outpatient Historical [facility] Layo Rose Jr., MD [address] [place] [address] Obesity, unspecified (Primary Dx); Dietary surveil/credit counselor Social History Tobacco Use Types Packs/Day Years Used Date Smoking Tobacco: Never Assessed Comments Unknown Sex and Gender Information Value Date Recorded Sex Assigned at Not on file Legal Sex Female 3:56 AM MARRIAGE AND FAMILY TEACHER Gender Identity Not on file Sexual Orientation Not on file documented as of this encounter Plan of Treatment Not on file documented as of this encounter Visit Diagnoses Diagnosis Obesity, unspecified- Primary Dietary surveil/credit counselor Dietary surveillance and counseling documented in this encounter Care Teams Plodding Machine Operator Relationship Specialty Start Date End Date Ela Leary MD [address] [place] [phone] PCP - General Family Practice 10/26/16 documented as of this encounter
--- NOTE | 2024-10-17 11:42 | CT_ITS ---
WS: [id number] CT ABDOMEN AND PELVIS WITH CONTRAST HISTORY: abdominal pain TECHNIQUE: Imaging performed of the abdomen and pelvis with IV contrast. Single phase imaging of the abdomen. Coronal and sagittal reformats are submitted. All CT scans at [facility] use at least one of these dose optimization techniques: automated exposure control; mA and/or kV adjustment per patient size (includes targeted exams where dose is matched to clinical indication); or iterative reconstruction. IV CONTRAST: Omnipaque 350; 100 mL IV. Oral contrast: No DLP: 1221.83 mGy.cm COMPARISON: 11/04/2011 Lower thorax: Lung bases are clear. Mild cardiomegaly. No hiatal hernia. Liver/biliary system: Liver is top normal size. No intrahepatic duct dilatation. Mild hepatic steatosis. Gallbladder: Normally distended gallbladder. There are a few foci of increased attenuation within the lumen which may be small stones or polyps. No pericholecystic fluid. Pancreas: Normal size pancreas and pancreatic duct. No adjacent inflammation. Spleen: Normal size spleen. No mass or infarct. Adrenal glands: Normal. Right kidney: Mild cortical thinning. No obstruction or solid mass. Left kidney: Mild cortical thinning and atrophy. No obstruction or solid mass. Aorta: Normal. Lymphadenopathy: None. Free fluid: Mild mesenteric edema. There is a small amount of free fluid in the pelvis. GI tract: Nondistended stomach. No small bowel obstruction. The appendix is identified and appears normal. Mild diverticular disease in the sigmoid. Distal colon and pelvic structures are being partially obscured by body habitus. Abdominal wall: Soft tissue anasarca. There is a large infraumbilical abdominal wall hernia containing omental fat. There is fluid within this hernia sac also. There is no incarcerated bowel. Pelvis: Small amount of free fluid in the pelvis. Uterus is present. Ovaries are atrophic. Bones: Mild increase in lumbar lordosis. CT/CT abdomen pelvis w con* [id number] IMPRESSION: 1. Small amount of ascites. 2. Extensive soft tissue anasarca. 3. Large infraumbilical abdominal wall hernia containing omental fat. There is also fluid within the hernia sac. This may be fluid entrapped from the ascites . There also can be fluid from an infarct to involve omental fat. No incarcerat ed hernia. 4. No GI tract obstruction. 5. Hepatic steatosis.
--- NOTE | 2024-10-17 11:48 | W.ED.GENADLT ---
HPI - General Adult General: Chief complaint: Abdominal Pain Stated complaint: abd pain and think she may have torn somthing Time Seen by Provider: 10/17/24 11:19 History of Present Illness: Patient is a 64-year-old female with a past medical history significant for congestive heart failure on torsemide, high cholesterol, high blood pressure, type 2 diabetes, hypothyroidism and asthma presents with a chief complaint of abdominal pain for 1 month or longer. She states it all started when she had COVID earlier this year. She states that in May she was diagnosed with pneumonia and feels less though her abdomen is sore from vigorous coughing. Patient has significant pain with movement. Patient has not had a fever. Patient denies current shortness of breath or chest pain but states that she feels as though her abdomen is distended and this makes her feel short of breath sometimes. Patient has not been vomiting and does not feel nauseated. She had a normal bowel movement yesterday without blood. Patient denies any urinary symptoms. She states that she has had worsening lower extremity swelling. Patient denies any history of abdominal surgeries. Patient also complains of a new rash on her abdomen. The bottom part of her abdomen is erythematous. Related Data Home Medications ?Medication ?Instructions ?Recorded ?Confirmed carvedilol 6.25 mg tablet 6.25 mg PO BID 05/28/20 10/17/24 metformin 500 mg tablet 500 mg PO DAILY 05/28/20 10/17/24 montelukast 10 mg tablet 10 mg PO BEDTIME 05/28/20 10/17/24 simvastatin 10 mg tablet 5 mg PO BEDTIME 05/28/20 10/17/24 torsemide 20 mg tablet 20 mg PO DAILY 05/28/20 10/17/24 trandolapril 4 mg tablet 4 mg PO DAILY 05/28/20 10/17/24 allopurinol 100 mg tablet 200 mg PO DAILY 03/10/24 10/17/24 albuterol sulfate 2.5 mg/3 mL 2.5 mg inhalation Q6H PRN 10/17/24 10/17/24 (0.083 %) solution for nebulization Shortness Of Breath aspirin 81 mg tablet,delayed 81 mg PO DAILY 10/17/24 10/17/24 release levothyroxine 88 mcg tablet 88 mcg PO QAM 10/17/24 10/17/24 omeprazole 20 mg capsule,delayed 20 mg PO DAILY 10/17/24 10/17/24 release Previous Rx's ?Medication ?Instructions ?Recorded azelastine 137 mcg (0.1 %) nasal 2 spray intranasal BID #30 mL 12/23/21 spray albuterol sulfate 90 mcg/actuation 2 inh inhalation Q4H PRN shortness 03/10/24 aerosol inhaler (Ventolin HFA) of breath or wheezing #8.5 grams Allergies Allergy/AdvReac Type Severity Reaction Status Date / Time codeine Allergy ALGY-Hives Verified 10/17/24 11:29 furosemide (From Lasix) Allergy ALGY-Hives Verified 10/17/24 11:29 methylprednisolone (From Allergy ALGY-Anaphy Verified 10/17/24 11:29 Solu-Medrol) laxis morphine Allergy ALGY-Hives Verified 10/17/24 11:29 [facility] PFSH: Medical History (Updated 03/18/24 @ 00:00 by ZAY Son) Diabetes Social History (Updated 02/14/22 @ 23:23 by Thomas Noe MD) Substance/Drug Use: never Physical Exam Narrative: EXAM NARRATIVE: Vital signs were reviewed. Patient is alert and oriented. Patient has truncal obesity. Patient is breathing comfortably, no increased WOB or accessory muscle use. SpO2 is above 92% on RA. No hypotension or tachycardia. Patient's abdomen is quite obese but does not appear to be tender when palpated. No CVA tenderness w/percussion of the flanks. There is erythema on the inferior aspect of the abdomen below the umbilicus though I don't appreciate any wounds or rash. Patient is moving all extremities, no deformity or gross injury. Patient does have b/l pitting edema. Course Vital Signs: Vital signs: Vital Signs Temperature 98.3 F 10/17/24 11:23 Pulse Rate 75 10/17/24 14:30 Respiratory Rate 16 10/17/24 14:30 Blood Pressure 118/75 10/17/24 14:30 Pulse Oximetry 91 10/17/24 14:30 Oxygen Delivery Me thod Room Air 10/17/24 14:30 MDM - General Adult Medical Decision Making 64yo F w/cc of abdominal pain, worsening lower extremity swelling; sx ongoing for a month or more. Differential diagnosis includes, does not limited to, congestive heart failure, ascites, hernia, kidney or liver problems, urinary tract infection, pyelonephritis, musculoskeletal strain. On exam, patient is hemodynamically stable. Patient has a relatively benign abdomen. She was evaluate CBC, CMP, lipase, troponin, BNP, UA, EKG, chest x-ray and CT of her abdomen pelvis with IV contrast. Patient was treated with IV Toradol and p.o. Tylenol. Patient has a normal white blood cell count. Patient has very mild elevation in creatinine though this is comparable to prior. She does not have any actionable electrolyte abnormalities. She has normal liver function and lipase. Patient not experiencing chest pain but has very minimally elevated high-sensitivity troponin. Patient does have BNP of nearly 5000 which may indicate worsening degree of heart failure. UA does not show infection or hematuria. CT scan of the abdomen shows anasarca but no acute intra-abdominal findings. Patient was given additional dose of torsemide. Patient has an appointment with her primary care physician tomorrow. Recommended medical management with adjustment of dosing of her Lasix and outpatient echo. Patient at this time does not require oxygen support and outpatient follow-up is reasonable for her. Patient was counseled on supportive care instructions at home, given her precautions and was discharged in stable condition. Lab Data 10/17/24 11:51 10/17/24 11:51 Radiology Impressions Abdomen/Pelvis CT 10/17/24 11:42 IMPRESSION: 1. Small amount of ascites. 2. Extensive soft tissue anasarca. 3. Large infraumbilical abdominal wall hernia containing omental fat. There is also fluid within the hernia sac. This may be fluid entrapped from the ascites. There also can be fluid from an infarct to involve omental fat. No incarcerated hernia. 4. No GI tract obstruction. 5. Hepatic steatosis. Chest X-Ray 10/17/24 11:56 IMPRESSION: Persistent cardiomegaly. Laboratory Results WBC 5.17 10^3/uL (3.29-11.43) 10/17/24 11:51 RBC 3.59 10^6/uL (3.85-5.65) L 10/17/24 11:51 Hgb 11.60 g/dL (11.27-16.99) 10/17/24 11:51 Hct 37.9 % (36-47) 10/17/24 11:51 MCV 105.6 fl (85-98) H 10/17/24 11:51 MCH 32.3 pg (27-33) 10/17/24 11:51 MCHC 30.6 g/dL (30-55) 10/17/24 11:51 RDW 17.1 % (12.1-15.1) H 10/17/24 11:51 Plt Count 163 10^3/cmm (157-399) 10/17/24 11:51 MPV 11.0 fL (7.4-10.4) H 10/17/24 11:51 Neut % (Auto) 54.5 % 10/17/24 11:51 Lymph % (Auto) 14.9 % 10/17/24 11:51 [place] % (Auto) 8.3 % 10/17/24 11:51 Eos % (Auto) 21.5 % 10/17/24 11:51 Baso % (Auto) 0.6 % 10/17/24 11:51 Neut # (Auto) 2.82 10^3/uL (1.8-7.7) 10/17/24 11:51 Lymph # (Auto) 0.8 10^3/uL (0.8-4.8) 10/17/24 11:51 [place] # (Auto) 0.4 10^3/uL (0.2-0.9) 10/17/24 11:51 Eos # (Auto) 1.1 10^3/uL (0.0-0.8) H 10/17/24 11:51 Baso # (Auto) 0.0 10^3/uL (0.0-0.1) 10/17/24 11:51 Nucleated RBC % (auto) 0 % 10/17/24 11:51 Nucleated RBCs # 0.0 /100WBC 10/17/24 11:51 Sodium 143 mmol/L (136-145) 10/17/24 11:51 Potassium 4.0 mmol/L (3.5-5.1) 10/17/24 11:51 Chloride 106 mmol/L (98-107) 10/17/24 11:51 Carbon Dioxide 24 mmol/L (22-29) 10/17/24 11:51 Anion Gap 17.0 (5-19) 10/17/24 11:51 BUN 28 mg/dL (8-23) H 10/17/24 11:51 Creatinine 1.1 mg/dL (0.5-0.9) H 10/17/24 11:51 GFR Calculation 49.8 mL/min (90-130) L 10/17/24 11:51 Glucose 97 mg/dL (65-115) 10/17/24 11:51 Calculated Osmolality 301 mOsm/kg (285-295) H 10/17/24 11:51 Calcium 9.3 mg/dL (8.5-10.5) 10/17/24 11:51 Total Bilirubin 0.7 mg/dL (0.15-1.2) 10/17/24 11:51 AST 9 U/L (0-32) 10/17/24 11:51 ALT < 5 U/L (0-33) 10/17/24 11:51 Alkaline Phosphatase 65 U/L (35-105) 10/17/24 11:51 Troponin T Baseline 14 ng/L (0-10) H 10/17/24 11:51 NT-Pro-B Natriuret Pep 4859 pg/mL (0-125) H 10/17/24 11:51 Total Protein 7.1 g/dL (6.6-8.7) 10/17/24 11:51 Albumin 3.7 g/dL (3.5-5.2) 10/17/24 11:51 Globulin 3.4 g/dL (1.3-4.6) 10/17/24 11:51 Lipase 30 U/L (13-60) 10/17/24 11:51 Urine Color Dark yellow (Yellow) A 10/17/24 13:27 Urine Appearance Clear (CLEAR) 10/17/24 13:27 Urine pH 5.0 (5-7) 10/17/24 13:27 Ur Specific [place] 1.037 (1.005-1.030) H 10/17/24 13:27 Urine Protein 1+ (Negative) A 10/17/24 13:27 Urine Glucose (UA) Negative (Normal) 10/17/24 13:27 Urine Ketones Trace (Negative) 10/17/24 13:27 Urine Blood Negative (Negative) 10/17/24 13:27 Urine Nitrate Negative (Negative) 10/17/24 13:27 Urine Bilirubin Negative (Negative) 10/17/24 13:27 Urine Urobilinogen 1.0 mg/dL (Negative) 10/17/24 13:27 Ur Leukocyte Esterase Trace (Negative) A 10/17/24 13:27 Urine RBC 0-2 /hpf (0-2) 10/17/24 13:27 Urine WBC 0-5 /hpf (0-5) 10/17/24 13:27 Ur Squamous Epith Cells 11-20 /hpf (0-5) H 10/17/24 13:27 Amorphous Sediment Not Reportable 10/17/24 13:27 Urine Bacteria None seen /hpf (NONE) 10/17/24 13:27 Hyaline Casts 21.08 /lpf 10/17/24 13:27 All radiology interpretation(s) finalized by discharge EKG Data EKG 1: Interpretation: Atrial fibrillation with a heart rate of 76, left axis deviation, no STEMI. Computer generated interpretation: Abdomen/Pelvis CT 10/17/24 11:42 IMPRESSION: 1. Small amount of ascites. 2. Extensive soft tissue anasarca. 3. Large infraumbilical abdominal wall hernia containing omental fat. There is also fluid within the hernia sac. This may be fluid entrapped from the ascites. There also can be fluid from an infarct to involve omental fat. No incarcerated hernia. 4. No GI tract obstruction. 5. Hepatic steatosis. Chest X-Ray 10/17/24 11:56 IMPRESSION: Persistent cardiomegaly. Discharge Plan Discharge Condition: Stable Prescriptions: No Action azelastine 137 mcg (0.1 %) aerosol,spray 2 spray intranasal BID Qty: 30 2RF Rx Instructions: administer into each nostril montelukast 10 mg tablet 10 mg PO BEDTIME carvedilol 6.25 mg tablet 6.25 mg PO BID trandolapril 4 mg tablet 4 mg PO DAILY simvastatin 10 mg tablet 5 mg PO BEDTIME torsemide 20 mg tablet 20 mg PO DAILY metformin 500 mg tablet 500 mg PO DAILY allopurinol 100 mg tablet 200 mg PO DAILY albuterol sulfate [Ventolin HFA] 90 mcg/actuation HFA aerosol inhaler 2 inh inhalation Q4H PRN (Reason: shortness of breath or wheezing) Qty: 8.5 0RF albuterol sulfate 2.5 mg /3 mL (0.083 %) solution for nebulization 2.5 mg inhalation Q6H PRN (Reason: Shortness Of Breath) aspirin [Aspir-81] 81 mg Tablet,Delayed Release (Dr/Ec) 81 mg PO DAILY levothyroxine 88 mcg tablet 88 mcg PO QAM omeprazole 20 mg capsule,delayed release(DR/EC) 20 mg PO DAILY Referrals: Shanda Menchaca FNP [Primary Care Provider, Nurse Practitioner] Print Language: Urdu Coding Level of Care Code ED Construction Equipment Operator for Ralph Gurrola
--- NOTE | 2024-10-17 11:56 | XRR_ITS ---
PROCEDURE INFORMATION: Exam: XR Chest Exam date and time: 10/17/2024 12:20 PM Age: 64 years old Clinical indication: Other: Leg swelling TECHNIQUE: Imaging protocol: Radiologic exam of the chest. Views: 1 view. COMPARISON: CR XR chest 1V portable [id number] 10/03/2024 12:05 FINDINGS: Lungs: Low lung volumes. No focal airspace disease. Pleural spaces: Unremarkable. No pleural effusion. No pneumothorax. Heart/Mediastinum: Persistent cardiomegaly. Bones/joints: Unremarkable. Soft tissues: Limited visualization of the upper abdomen due to patient body habitus. XR/XR chest 1V portable [id number] IMPRESSION: Persistent cardiomegaly.
[2024-10-17 11:57] LABS: Hematocrit 37.9 % (36-47); Hemoglobin 11.60 g/dL (11.27-16.99); Mean Corpuscular HGB Conc 30.6 g/dL (30-55); Mean Corpuscular Hemoglobin 32.3 pg (27-33); Mean Corpuscular Volume 105.6 fl (85-98); Nucleated Red Blood Cells % 0 %; Platelet Count 163 10^3/cmm (157-399); Red Blood Count 3.59 10^6/uL (3.85-5.65); White Blood Count 5.17 10^3/uL (3.29-11.43)
--- NOTE | 2024-10-17 12:13 | ECG_ITS ---
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 Measurements Intervals [place] Rate: 76 P: 0 MS: 0 QRS: -59 QRSD: 118 T: 107 QT: 426 QTc: 481 Interpretive Statements ATRIAL FIBRILLATION WITH ABERRANT CONDUCTION OR VENTRICULAR PREMATURE COMPLEXES LEFT AXIS DEVIATION [QRS AXIS < -30] PATTERN CONSISTENT WITH PULMONARY DISEASE SEPTAL MYOCARDIAL INFARCTION , PROBABLY OLD [40+ ms Q WAVE IN V1/V2] Compared to ECG 03/10/2024 11:43:44 Ventricular premature complex(es) now present Aberrant conduction of supraventricular beat(s) now present Sinus rhythm no longer present Myocardial infarct finding still present Electronically Signed On 10-17-2024 20:47:58 CDT by Migel Roth M.D. [email or web address]
[2024-10-17 12:32] LABS: Alanine Aminotransferase < 5 U/L (0-33); Albumin Level 3.7 g/dL (3.5-5.2); Alkaline Phosphatase 65 U/L (35-105); Anion Gap 17.0 (5-19); Aspartate Amino Transferase 9 U/L (0-32); Blood Urea Nitrogen 28 mg/dL (8-23); Calcium 9.3 mg/dL (8.5-10.5); Carbon Dioxide 24 mmol/L (22-29); Chloride 106 mmol/L (98-107); Creatinine Clr Calc Pharmacy 93.4678; Globulin 3.4 g/dL (1.3-4.6); Glucose 97 mg/dL (65-115); Lipase 30 U/L (13-60); NT Pro B Type Natriuretic Pept 4859 pg/mL (0-125); Osmolality Calculated 301 mOsm/kg (285-295); Potassium 4.0 mmol/L (3.5-5.1); Sodium 143 mmol/L (136-145); Total Protein 7.1 g/dL (6.6-8.7)
[2024-10-17 12:47] LABS: Troponin(5th) Baseline 14 ng/L (0-10)
[2024-10-17] MEDS: iohexol 350 mg/mL 500 mL Btl (per mL) IV (13:00)
[2024-10-17 13:53] LABS: Glucose Urine UA Negative (Normal); Nitrate Urine Negative (Negative)
[2024-10-17 13:58] LABS: Add Urine Microscopic? YES
[2024-10-17 13:59] LABS: Specific Gravity, Urine 1.037 (1.005-1.030); UA Slide Review UA Slide Review Perf
== END 2024-10-17 15:24 | disposition home or self-care (01) ==
PROVIDERS: Emergency Medicine; Emergency Provider Emergency Medicine; PCP Nurse Practitioner Family
DX: R10.9 Unspecified abdominal pain (principal); R60.0 Localized edema; K42.9 Umbilical hernia without obstruction or gangrene; Z79.82 Long term (current) use of aspirin; Z79.84 Long term (current) use of oral hypoglycemic drugs; E11.9 Type 2 diabetes mellitus without complications; I11.0 Hypertensive heart disease with heart failure; I50.9 Heart failure, unspecified
CPT/HCPCS: 36415; 71045; 74177; 80053; 81001; 83690; 83880; 84484; 85025; 93005; 96374; 99285; J1885; J9999

== ENCOUNTER 2024-10-26 07:55 | Inpatient (IN) | payer MEDICARE, SELFPAY ==
[2024-10-26] VITALS (13 sets, daily range): BP systolic 102–119; BP diastolic 59–78; PULSE 71–99; RESP 13–20; TEMP 36.4–36.7; O2SAT 93–98; BMI 53.7
--- NOTE | 2024-10-26 07:59 | XRR_ITS ---
PROCEDURE INFORMATION: Exam: XR Chest Exam date and time: 10/26/2024 8:21 AM Age: 64 years old Clinical indication: Dyspnea; Additional info: Dyspnea/cough TECHNIQUE: Imaging protocol: Radiologic exam of the chest. Views: 1 view. COMPARISON: CR XR chest 1V portable [id number] 10/17/2024 12:20 PM FINDINGS: Lungs: Unremarkable. No consolidation. Pleural spaces: Unremarkable. No pleural effusion. No pneumothorax. Heart/Mediastinum: See Vasculature finding. Vasculature: Mild cardiomegaly and uncoiling thoracic aorta. This is accentuated by the AP positioning. Bones/joints: Unremarkable. XR/XR chest 1V portable [id number] IMPRESSION: No acute findings.
--- NOTE | 2024-10-26 08:02 | ECG_ITS ---
[facility] Test Date: 2024-10-26 Pat Name: Chely Katz Department: Room: Gender: Female Equity Research Associate: : 1960 Requested By: Salvador Coles Order Number: [id number] Reading MD: NANNETTE KOROMA Measurements Intervals [place] Rate: 83 P: 0 MA: 0 QRS: -61 QRSD: 120 T: 108 QT: 392 QTc: 462 Interpretive Statements ATRIAL FIBRILLATION LEFT AXIS DEVIATION [QRS AXIS < -30] POSSIBLE ANTERIOR MYOCARDIAL INFARCTION , OF INDETERMINATE AGE [30 ms Q WAVE IN V3/V4, OR R < 0.2 mV IN V4] Compared to ECG 10/17/2024 12:13:18 Ventricular premature complex(es) no longer present Aberrant conduction of supraventricular beat(s) no longer present Myocardial infarct finding still present Electronically Signed On 10-27-2024 20:14:29 CDT by NANNETTE KOROMA [id number]
--- NOTE | 2024-10-26 08:24 | PC.NURSE ---
pt unable to urinate at this time d/t urinating prior to arrival. pt educated on need for urine; bedside commode at bedside.
--- OUTSIDE RECORDS SUMMARY | 2024-10-26 08:24 | XMS_ITS | Encounter Summary ---
Author Organization [facility] Address [address] [place] [address] Care Team Providers Care Disability Counselor Name Role Phone Ela Leary MD Primary Care Provider Reason for Visit * Reason Onset Date Comments schedule consult 10/24/2024 Encounter Details Date Type Department Care Team (Late st Contact Info) Description 10/24/2024 Telephone [facility] [address] [facility] [address] [place] [address] Shubham Smyth MD [address] [facility] [address] [place] [address] schedule consult Social History Tobacco Use Types Packs/Day Years Used Date Smoking Tobacco: Never Smokeless Tobacco: Never Alcohol Use Standard Drinks/Week Comments No 0 (1 standard drink = 0.6 oz pur e alcohol) Comments Unknown Sex and Gender Information Value Date Recorded Sex Assigned at Not on file 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 No answer. Left vm. * Telephone Encounter - Alana José - 10/24/2024 9:50 AM CDT Provider: Haja (see cancelled consult on 11/21/24) , call pt. Caller is daughter Elicia, no PHI on file MESSAGE Caller states her mother seen at the ED at [facility] about a week ago and diagnosed with CHF. She was given the referral fax number to request records be seen to our office to attach to the referral. She says her mother needs an appt as soon as possible and inquires if a referral is needed. She also inquires if her mother could get scheduled as a new pt before the appt she has with cardiology in [place] on 11/16/24 with an echo on 11/17/24. Please call her mother to discuss. Alana José [facility] documented in this encounter Plan of Treatment Not on file documented as of this encounter Visit Diagnoses Not on filedocumented in this encounter Care Teams Disability Counselor Relationship Specialty Start Date End Date Ela Leary MD [address] [place] [address] PCP - General Family Practice 10/26/16 documented as of this encounter
--- OUTSIDE RECORDS SUMMARY | 2024-10-26 08:24 | XMS_ITS | Clinical Summary ---
Author Organization [facility] Address [address] 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 Gender Identity Not on file Sexual Orientation Not on file Last Filed Vital Signs Vital Sign Reading Time Taken Comments Blood Pressure 130/68 03/10/2019 10:14 AM HAND NAILER Pulse 60 03/10/2019 10:14 AM HAND NAILER Temperature - - Respiratory Rate - - Oxygen Saturation - - Inhaled Oxygen Concentration - - Weight 126.1 kg (278 lb) 03/10/2019 10:14 AM HAND NAILER Height 149.9 cm (4' 11 ) 03/10/2019 10:14 AM HAND NAILER Body Mass Index 56.15 03/10/2019 10:14 AM HAND NAILER Plan of Treatment Health Maintenance Due Date [...] INFLUENZA VACCINE (#1) 2024 Insurance [place]E SUAREZ [id number] [facility] DUAL COMPLETE MCR PPO D-SNP Care Teams Bindery Operator Relationship Specialty Start Date End Date Ela Leary MD [address] [place] [phone] PCP - General Family Practice 10/26/16
--- OUTSIDE RECORDS SUMMARY | 2024-10-26 08:24 | XMS_ITS | Encounter Summary ---
Author Organization [facility] Address [address] [place] [address] Care Team Providers Care Mud Analysis Operator Name Role Phone Ela Leary MD Primary Care Provider Encounter Details Date Type Department Care Team (Latest Contact Info) Description 06/26/1998 Outpatient Historical [facility] Layo Rose Jr., MD [address] [place] [address] Unspecified pleural effusion (Primary Dx); Obesity, unspecified Social History Tobacco Use Types Packs/Day Years Used Date Smoking Tobacco: Never Assessed Comments Unknown Sex and Gender Information Value Date Recorded Sex Assigned at Not on file 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
--- OUTSIDE RECORDS SUMMARY | 2024-10-26 08:24 | XMS_ITS | Encounter Summary ---
Author Organization [facility] Address [address] [place] [address] Care Team Providers Care Sediment Remediation Consultant Name Role Phone Ela Leary MD Primary Care Provider Encounter Details Date Type Department Care Team (Late st Contact Info) Description 06/01/2002 Outpatient Historical [facility] Cardiology- [place] [address] [place] [address] Mane Prater MD [address] [facility] [address] [place] [address] RHEUMATIC MITRAL INSUFF (Primary Dx) Social History Tobacco Use Types Packs/Day Years Used Date Smoking Tobacco: Never Assessed Comments Unknown Sex and Gender Information Value Date Recorded Sex Assigned at Not on file Legal 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
--- OUTSIDE RECORDS SUMMARY | 2024-10-26 08:24 | XMS_ITS | Encounter Summary ---
Author Organization [facility] Address [address] [place] [address] Care Team Providers Care Core Blower Operator Name Role Phone Ela Leary MD Primary Care Provider Encounter Details Date Type Department Care Team (Latest Contact Info) Description 11/14/1998 Outpatient Historical [facility] Cardiology- [place] [address] [place] [address] Mane Prater MD [address] [facility] [address] [place] [address] Unspecified transient cerebral ischemia (Primary Dx); Mitral stenosis with insufficiency Social History Tobacco Use Types Packs/Day Years Used Date Smoking Tobacco: Never Assessed Comments Unknown Sex and Gender Information Value Date Recorded Sex Assigned at Not on file 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
--- OUTSIDE RECORDS SUMMARY | 2024-10-26 08:24 | XMS_ITS | Encounter Summary ---
Author Organization [facility] Address [address] [place] [address] Care Team Providers Care Brickmason Helper Name Role Phone Ela Leary MD Primary Care Provider Encounter Details Date Type Department Care Team (Latest Contact Info) Description 01/25/2006 Outpatient Historical [facility] Cardiology- [place] [address] [place] [address] Amado Li, [facility] [address] [place] [address] Unspecified Hypertensive Heart Disease without Heart Failure (Primary Dx); Rheumatic Mitral Insufficiency Social History Tobacco Use Types Packs/Day Years Used Date Smoking Tobacco: Never Assessed Comments Unknown Sex and Gender Information Value Date Recorded Sex Assigned at Not on file Legal 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
--- OUTSIDE RECORDS SUMMARY | 2024-10-26 08:24 | XMS_ITS | Encounter Summary ---
Author Organization [facility] Address [address] [place] [address] Care Team Providers Care Underliner Name Role Phone Ela Leary MD Primary Care Provider Encounter Details Date Type Department Care Team (Late st Contact Info) Description 10/27/2004 Outpatient Historical [facility] Cardiology- [place] [address] [place] [address] Mane Prater MD [address] [facility] [address] [place] [address] RHEUMATIC MITRAL INSUFF (Primary Dx); BENIGN HYP HRT DIS W/O HRT FAIL Social History Tobacco Use Types Packs/Day Years Used Date Smoking Tobacco: Never Assessed Comments Unknown Sex and Gender Information Value Date Recorded Sex Assigned at Not on file 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
--- OUTSIDE RECORDS SUMMARY | 2024-10-26 08:24 | XMS_ITS | Encounter Summary ---
Author Organization [facility] Address [address] [place] [address] Care Team Providers Care Steel Melter Name Role Phone Ela Leary MD Primary Care Provider Encounter Details Date Type Department Care Team (Latest Contact Info) Description 04/26/1998 Outpatient Historical [facility] Conrad Bowen MD [address] [place] [address] Bronchitis, not specified as acute or chronic (Primary Dx); Nonallopathic lesion of thoracic region, not elsewhere classified; Other dyspnea and respiratory abnormality Social History Tobacco Use Types Packs/Day Years Used Date Smoking Tobacco: Never Assessed Comments Unknown Sex and Gender Information Value Date Recorded Sex Assigned at Not on file Legal Sex Female 3:56 AM SALES OFFICE ASSISTANT Gender Identity Not on file Sexual Orientation Not on file documented as of this encounter Plan of Treatment Not on file documented as of this encounter Visit Diagnoses Diagnosis Bronchitis, not specified as acute or chronic- Primary Nonallopathic lesion of thoracic region, not elsewhere classified Other dyspnea and respiratory abnormality documented in this encounter Care Teams Steel Melter Relationship Specialty Start Date End Date Ela Leary MD [address] [place] [phone] PCP - General Family Practice 10/26/16 documented as of this encounter
--- OUTSIDE RECORDS SUMMARY | 2024-10-26 08:24 | XMS_ITS | Encounter Summary ---
Author Organization [facility] Address [address] [place] [address] Care Team Providers Care Mushroom Growth Media Mixer Name Role Phone Ela Leary MD Primary Care Provider Encounter Details Date Type Department Care Team (Late st Contact Info) Description 07/03/2009 Ancillary Orders [facility] Cardiology- [place] [address] [facility] [address] [place] [address] Mane Prater MD [address] [facility] [address] [place] [address] Mitral Valve Disorders Social History Tobacco Use Types Packs/Day Years Used Date Smoking Tobacco: Never Alcohol Use Standard Drinks/Week Comments Not Asked 0 (1 standard drink = 0.6 oz pur e alcohol) Comments Unknown Sex and Gender Information Value Date Recorded Sex Assigned at Not on file Legal Sex Female 3:56 AM MARKETING DEVELOPMENT SPECIALIST Gender Identity Not on file Sexual Orientation Not on file documented as of this encounter Plan of Treatment Not on file documented as of this encounter Results * ECHO COMPLETE (07/03/2009 1:13 PM CDT) 07/03/2009 11:5 3 AM CDT Narrative INTERFACE SYSTEM - 07/03/2009 3:10 PM CDT [facility] - Cardiology [address] [facility] [address] [place] [address] Transthoracic Echocardiography Patient: Chely Katz Study ID: ECHOCARDIOGRAM C Gender: F : 1960 Age: 49 Location: Room: Height: 149.9cm Study Date: 07/03/2009 Patient status: P Weight: 121.6kg Study Time: 11:53 AM BSA: 2.09m^2 *Ordering:Mane SequeiraInterpreting:*Hector DenisEmergency Medicine Specialist:Jossy Robles Diagnoses supporting medical necessity: Mitral lnsufficiency. [...] (*) weaver values outside specified normal range. [facility] is accredited with the Intersocietal Commission for the Accreditation of Echocardiography Laboratories (ICAEL) Prepared and Electronically Authenticated Hector Denis [id number] Procedure Note Nik Denis MD - 07/03/2009 [facility] - Cardiology [address] [facility] [address] [place] [address] Transthoracic Echocardiography Patient: Chely Katz Study ID: ECHOCARDIOGRAM C Gender: F : 1960 Age: 49 Location: Room: Height: 149.9cm Study Date: 07/03/2009 Patient status: P Weight: 121.6kg Study Time: 11:53 AM BSA: 2.09m^2 *Ordering:* Mane Prater *Interpreting:*Hector Denis *Emergency Medicine Specialist:Jossy Robles Diagnoses supporting medical necessity: Mitral lnsufficiency. [...] (*) weaver values outside specified normal range. [facility] is accredited with the Intersocietal Commission for the Accreditation of Echocardiography Laboratories (ICAEL) Prepared and Electronically Authenticated Hector Denis [id number] us Mane Prater MD ORDERABLES Final Result INTERFACE SYSTEM Refer to clinic/hospital department documented in this encounter Visit Diagnoses Diagnosis Mitral valve disorders(424.0) Mitral valve disorders documented in this encounter Care Teams Mushroom Growth Media Mixer Relationship Specialty Start Date End Date Ela Leary MD [address] [place] [phone] PCP - General Family Practice 10/26/16 documented as of this encounter
--- OUTSIDE RECORDS SUMMARY | 2024-10-26 08:24 | XMS_ITS | Encounter Summary ---
Author Organization [facility] Address [address] [place] [address] Care Team Providers Care Cash Room Clerk Name Role Phone Ela Leary MD Primary Care Provider Encounter Details Date Type Department Care Team (Latest Contact Info) Description 05/22/1998 Outpatient Historical [facility] Layo Rose Jr., MD [address] [place] [address] Unspecified pleural effusion (Primary Dx) Social History Tobacco Use Types Packs/Day Years Used Date Smoking Tobacco: Never Assessed Comments Unknown Sex and Gender Information Value Date Recorded Sex Assigned at Not on file Legal Sex Female 3:56 AM DESIGN CONSULTANT Gender Identity Not on file Sexual Orientation Not on file documented as of this encounter Plan of Treatment Not on file documented as of this encounter Visit Diagnoses Diagnosis Unspecified pleural effusion- Primary documented in this encounter Care Teams Cash Room Clerk Relationship Specialty Start Date End Date Ela Leary MD [address] [place] [phone] PCP - General Family Practice 10/26/16 documented as of this encounter
--- OUTSIDE RECORDS SUMMARY | 2024-10-26 08:24 | XMS_ITS | Encounter Summary ---
Author Organization [facility] Address [address] [place] [address] Care Team Providers Care Spinning Frame Fixer Name Role Phone Ela Leary MD Primary Care Provider Encounter Details Date Type Department Care Team (Latest Contact Info) Description 05/10/1998 Outpatient Historical [facility] Layo Rose Jr., MD [address] [place] [address] Abdominal pain, unspecified site (Primary Dx); Other dyspnea and respiratory abnormality Social History Tobacco Use Types Packs/Day Years Used Date Smoking Tobacco: Never Assessed Comments Unknown Sex and Gender Information Value Date Recorded Sex Assigned at Not on file Legal Sex Female 3:56 AM MAINTENANCE AND CUSTODIAN SUPERVISOR Gender Identity Not on file Sexual Orientation Not on file documented as of this encounter Plan of Treatment Not on file documented as of this encounter Visit Diagnoses Diagnosis Abdominal pain, unspecified site- Primary Other dyspnea and respiratory abnormality documented in this encounter Care Teams Spinning Frame Fixer Relationship Specialty Start Date End Date Ela Leary MD [address] [place] [phone] PCP - General Family Practice 10/26/16 documented as of this encounter
--- OUTSIDE RECORDS SUMMARY | 2024-10-26 08:24 | XMS_ITS | Encounter Summary ---
Author Organization [facility] Address [address] [place] [address] Care Team Providers Care Assistant Branch Operations Manager Name Role Phone Ela Leary MD Primary Care Provider Encounter Details Date Type Department Care Team (Latest Contact Info) Description 09/04/1998 Outpatient Historical [facility] Layo Rose Jr., MD [address] [place] [address] Acute and subacute bacterial endocarditis (Primary Dx); Need for prophylactic vaccination against Streptococcus pneumoniae (pneumococcus) Social History Tobacco Use Types Packs/Day Years Used Date Smoking Tobacco: Never Assessed Comments Unknown Sex and Gender Information Value Date Recorded Sex Assigned at Not on file Legal Sex Female 3:56 AM MILD DISABILITIES TEACHER Gender Identity Not on file Sexual Orientation Not on file documented as of this encounter Plan of Treatment Not on file documented as of this encounter Visit Diagnoses Diagnosis Acute and subacute bacterial endocarditis- Primary Need for prophylactic vaccination against Streptococcus pneumoniae (pneumococcus) Need for prophylactic vaccination against streptococcus pneumoniae (pneumococcus) documented in this encounter Care Teams Assistant Branch Operations Manager Relationship Specialty Start Date End Date Ela Leary MD [address] [place] [phone] PCP - General Family Practice 10/26/16 documented as of this encounter
--- OUTSIDE RECORDS SUMMARY | 2024-10-26 08:24 | XMS_ITS | Encounter Summary ---
Author Organization [facility] Address [address] [place] [address] Care Team Providers Care Vegetable Washing Machine Operator Name Role Phone Ela Leary MD Primary Care Provider Encounter Details Date Type Department Care Team (Latest Contact Info) Description 05/26/2001 Outpatient Historical [facility] Cardiology Anc[facility] [place] [address] [place] [address] Al Diaz MD [address] [address] [place] [address] Mitral valve disorder (Primary Dx) Social History Tobacco Use Types Packs/Day Years Used Date Smoking Tobacco: Never Assessed Comments Unknown Sex and Gender Information Value Date Recorded Sex Assigned at Not on file Legal Sex Female 3:56 AM CUT OFF SAW GRADER Gender Identity Not on file Sexual Orientation Not on file documented as of this encounter Plan of Treatment Not on file documented as of this encounter Visit Diagnoses Diagnosis Mitral valve disorder- Primary Mitral valve disorders documented in this encounter Care Teams Vegetable Washing Machine Operator Relationship Specialty Start Date End Date Ela Leary MD [address] [place] [phone] PCP - General Family Practice 10/26/16 documented as of this encounter
--- OUTSIDE RECORDS SUMMARY | 2024-10-26 08:24 | XMS_ITS | Encounter Summary ---
Author Organization [facility] Address [address] [place] [address] Care Team Providers Care Sack Repairer Name Role Phone Ela Leary MD Primary Care Provider Encounter Details Date Type Department Care Team (Late st Contact Info) Description 09/26/1998 Outpatient Historical [facility] Cardiology Anc[facility] [place] [address] [place] [address] Mane Prater MD [address] [place] [address] Mitral valve disorder (Primary Dx) Social History Tobacco Use Types Packs/Day Years Used Date Smoking Tobacco: Never Assessed Comments Unknown Sex and Gender Information Value Date Recorded Sex Assigned at Not on file Legal Sex Female 3:56 AM MAINTENANCE MECHANIC ENGINE Gender Identity Not on file Sexual Orientation Not on file documented as of this encounter Plan of Treatment Not on file documented as of this encounter Visit Diagnoses Diagnosis Mitral valve disorder- Primary Mitral valve disorders documented in this encounter Care Teams Sack Repairer Relationship Specialty Start Date End Date Ela Leary MD [address] [place] [phone] PCP - General Family Practice 10/26/16 documented as of this encounter
--- OUTSIDE RECORDS SUMMARY | 2024-10-26 08:24 | XMS_ITS | Encounter Summary ---
Author Organization [facility] Address [address] [place] [address] Care Team Providers Care Head Of Academic Technology Name Role Phone Ela Leary MD Primary Care Provider Encounter Details Date Type Department Care Team (Late st Contact Info) Description 10/27/2004 Outpatient Historical [facility] Cardiology Ancillary Services[place] [address] [place] [address] Shubham Smyth MD [address] [facility] [address] [place] [address] Mitral valve disorder (Primary Dx); BENIGN HYP HRT DIS W/O HRT FAIL Social History Tobacco Use Types Packs/Day Years Used Date Smoking Tobacco: Never Assessed Comments Unknown Sex and Gender Information Value Date Recorded Sex Assigned at Not on file Legal Sex Female 3:56 AM FISHING TOOL OPERATOR Gender Identity Not on file Sexual Orientation Not on file documented as of this encounter Plan of Treatment Not on file documented as of this encounter Visit Diagnoses Diagnosis Mitral valve disorder- Primary Mitral valve disorders Benign hypertensive heart disease without heart failure documented in this encounter Care Teams Head Of Academic Technology Relationship Specialty Start Date End Date Ela Leary MD [address] [place] [phone] PCP - General Family Practice 10/26/16 documented as of this encounter
--- OUTSIDE RECORDS SUMMARY | 2024-10-26 08:24 | XMS_ITS | Encounter Summary ---
Author Organization [facility] Address [address] [place] [address] Care Team Providers Care Attenuator Name Role Phone Ela Leary MD Primary Care Provider Encounter Details Date Type Department Care Team (Late st Contact Info) Description 09/06/2003 Outpatient Historical [facility] Cardiology- [place] [address] [place] [address] Mane Prater MD [address] [facility] [place] [address] BENIGN HYP HRT DIS W/O HRT FAIL (Primary Dx); MITR/AORTIC MULT INVOLV Social History Tobacco Use Types Packs/Day Years Used Date Smoking Tobacco: Never Assessed Comments Unknown Sex and Gender Information Value Date Recorded Sex Assigned at Not on file Legal Sex Female 3:56 AM EGG BREAKER Gender Identity Not on file Sexual Orientation Not on file documented as of this encounter Plan of Treatment Not on file documented as of this encounter Visit Diagnoses Diagnosis Benign hypertensive heart disease without heart failure- Primary 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
--- OUTSIDE RECORDS SUMMARY | 2024-10-26 08:24 | XMS_ITS | Encounter Summary ---
Author Organization [facility] Address [address] [place] [address] Care Team Providers Care Treasury Associate Name Role Phone Ela Leary MD Primary Care Provider Encounter Details Date Type Department Care Team (Latest Contact Info) Description 07/12/1998 Outpatient Historical [facility] Layo Rose Jr., MD [address] [place] [address] Obesity, unspecified (Primary Dx); Dietary surveil/student services counselor Social History Tobacco Use Types Packs/Day Years Used Date Smoking Tobacco: Never Assessed Comments Unknown Sex and Gender Information Value Date Recorded Sex Assigned at Not on file Legal Sex Female 3:56 AM FILLER FEEDER Gender Identity Not on file Sexual Orientation Not on file documented as of this encounter Plan of Treatment Not on file documented as of this encounter Visit Diagnoses Diagnosis Obesity, unspecified- Primary Dietary surveil/student services counselor Dietary surveillance and counseling documented in this encounter Care Teams Treasury Associate Relationship Specialty Start Date End Date Ela Leary MD [address] [place] [phone] PCP - General Family Practice 10/26/16 documented as of this encounter
--- OUTSIDE RECORDS SUMMARY | 2024-10-26 08:24 | XMS_ITS | Encounter Summary ---
Author Organization [facility] Address [address] [place] [address] Care Team Providers Care Blind Hooker Name Role Phone Ela Leary MD Primary Care Provider Encounter Details Date Type Department Care Team (Latest Contact Info) Description 09/26/1998 Outpatient Historical [facility] Cardiology- [place] [address] [place] [address] Mane Prater MD [address] [facility] [address] [place] [address] Other primary cardiomyopathies (CMS/HCC) (Primary Dx); Congestive heart failure, unspecified (CMS/HCC); Unspecified essential hypertension; Mitral stenosis with insufficiency Social History Tobacco Use Types Packs/Day Years Used Date Smoking Tobacco: Never Assessed Comments Unknown Sex and Gender Information Value Date Recorded Sex Assigned at Not on file Legal Sex Female 3:56 AM PROFESSIONAL BASS FISHER Gender Identity Not on file Sexual Orientation Not on file documented as of this encounter Plan of Treatment Not on file documented as of this encounter Visit Diagnoses Diagnosis Other primary cardiomyopathies (CMS/HCC)- Primary Other primary cardiomyopathies Congestive heart failure, unspecified (CMS/HCC) Congestive heart failure, unspecified Unspecified essential hypertension Mitral stenosis with insufficiency documented in this encounter Care Teams Blind Hooker Relationship Specialty Start Date End Date Ela Leary MD [address] [place] [place] [phone] PCP - General Family Practice 10/26/16 documented as of this encounter
--- OUTSIDE RECORDS SUMMARY | 2024-10-26 08:24 | XMS_ITS | Encounter Summary ---
Author Organization [facility] Address [address] [place] [address] Care Team Providers Care Branch Operations Manager Name Role Phone Ela Leary MD Primary Care Provider Encounter Details Date Type Department Care Team (Latest Contact Info) Description 05/10/2000 Outpatient Historical [facility] Cardiology- [place] [address] [place] [address] Mane Prater MD [address] [facility] [address] [place] [address] Benign hypertension (Primary Dx); Mitral stenosis with insufficiency Social History Tobacco Use Types Packs/Day Years Used Date Smoking Tobacco: Never Assessed Comments Unknown Sex and Gender Information Value Date Recorded Sex Assigned at Not on file Legal Sex Female 3:56 AM GOLF STUD RIVETER Gender Identity Not on file Sexual Orientation Not on file documented as of this encounter Plan of Treatment Not on file documented as of this encounter Visit Diagnoses Diagnosis Benign hypertension- Primary Essential hypertension, benign Mitral stenosis with insufficiency documented in this encounter Care Teams Branch Operations Manager Relationship Specialty Start Date End Date Ela Leary MD [address] [place] [phone] PCP - General Family Practice 10/26/16 documented as of this encounter
--- OUTSIDE RECORDS SUMMARY | 2024-10-26 08:24 | XMS_ITS | Encounter Summary ---
Author Organization [facility] Address [address] [place] [address] Care Team Providers Care Design Sales Consultant Name Role Phone Ela Leary MD Primary Care Provider Encounter Details Date Type Department Care Team (Latest Contact Info) Description 05/26/2001 Outpatient Historical [facility] Cardiology- [place] [address] [place] [address] Mane Prater MD [address] [facility] [facility] [address] [place] [address] PRIM CARDIOMYOPATHY NEC (CMS/HCC) (Primary Dx); Mitral valve disorder Social History Tobacco Use Types Packs/Day Years Used Date Smoking Tobacco: Never Assessed Comments Unknown Sex and Gender Information Value Date Recorded Sex Assigned at Not on file Legal Sex Female 3:56 AM SHREDDED FILLER HOPPER FEEDER Gender Identity Not on file Sexual Orientation Not on file documented as of this encounter Plan of Treatment Not on file documented as of this encounter Visit Diagnoses Diagnosis Other primary cardiomyopathies (CMS/HCC)- Primary Other primary cardiomyopathies Mitral valve disorder Mitral valve disorders documented in this encounter Care Teams Design Sales Consultant Relationship Specialty Start Date End Date Ela Leary MD [address] [place] [phone] PCP - General Family Practice 10/26/16 documented as of this encounter
--- OUTSIDE RECORDS SUMMARY | 2024-10-26 08:24 | XMS_ITS | Encounter Summary ---
Author Organization [facility] Address [address] [place] [address] Care Team Providers Care Director Of Student Financial Services Name Role Phone Ela Leary MD Primary Care Provider Encounter Details Date Type Department Care Team (Latest Contact Info) Description 08/16/1998 Outpatient Historical [facility] Layo Rose Jr., MD [address] [place] [address] Dietary surveil/child care counselor (Primary Dx) Social History Tobacco Use Types Packs/Day Years Used Date Smoking Tobacco: Never Assessed Comments Unknown Sex and Gender Information Value Date Recorded Sex Assigned at Not on file Legal Sex Female 3:56 AM OBSTETRICS SPECIALIST Gender Identity Not on file Sexual Orientation Not on file documented as of this encounter Plan of Treatment Not on file documented as of this encounter Visit Diagnoses Diagnosis Dietary surveil/child care counselor- Primary Dietary surveillance and counseling documented in this encounter Care Teams Director Of Student Financial Services Relationship Specialty Start Date End Date Ela Leary MD [address] [place] [phone] PCP - General Family Practice 10/26/16 documented as of this encounter
--- OUTSIDE RECORDS SUMMARY | 2024-10-26 08:24 | XMS_ITS | Encounter Summary ---
Author Organization [facility] Address [address] [place] [address] Care Team Providers Care Medical Management Specialist Name Role Phone Ela Leary MD Primary Care Provider Encounter Details Date Type Department Care Team (Late st Contact Info) Description 09/06/2003 Outpatient Historical [facility] Cardiology Ancillary Services-[place] [address] [place] [address] Shubham Smyth MD [address] [address] [place] [address] Mitral valve disorder (Primary Dx) Social History Tobacco Use Types Packs/Day Years Used Date Smoking Tobacco: Never Assessed Comments Unknown Sex and Gender Information Value Date Recorded Sex Assigned at Not on file Legal Sex Female 3:56 AM MULTIFOLD OPERATOR Gender Identity Not on file Sexual Orientation Not on file documented as of this encounter Plan of Treatment Not on file documented as of this encounter Visit Diagnoses Diagnosis Mitral valve disorder- Primary Mitral valve disorders documented in this encounter Care Teams Medical Management Specialist Relationship Specialty Start Date End Date Ela Leary MD [address] [place] [phone] PCP - General Family Practice 10/26/16 documented as of this encounter
--- OUTSIDE RECORDS SUMMARY | 2024-10-26 08:24 | XMS_ITS | Clinical Summary ---
Author Organization [facility] Address [address] [facility] Attn: [place] [address] Care Team Providers Care Senior Infrastructure Architect Name Role Phone Ela Leary MD Primary [...] Encounters Date Type Department Care Team Description 10/24/2024 Telephone [facility] [address] [facility] [address] [place] [address] Shubham Smyth MD schedule consult 09/20/2024 Abstract [facility] [address] [facility] [address] [place] [address] Shanda Menchaca FNP from Last 3 [...] on file Legal Sex Female 3:49 AM CRIMINAL INVESTIGATIVE AGENT Gender Identity Not on file Sexual Orientation Not on file Last Filed Vital Signs Vital Sign Reading Time Taken Comments Blood Pressure 130/68 03/10/2019 10:14 AM CRIMINAL INVESTIGATIVE AGENT Pulse 60 03/10/2019 10:14 AM CRIMINAL INVESTIGATIVE AGENT Temperature - - Respiratory Rate - - Oxygen Saturation - - Inhaled Oxygen Concentration - - Weight 126.1 kg (278 lb) 03/10/2019 10:14 AM CRIMINAL INVESTIGATIVE AGENT Height 149.9 cm (4' 11 ) 03/10/2019 10:14 AM CRIMINAL INVESTIGATIVE AGENT Body Mass Index 56.15 03/10/2019 10:14 AM CRIMINAL INVESTIGATIVE AGENT Plan of Treatment Health Maintenance Due Date [...] SCREENING 02/07/2024 INFLUENZA VACCINE (#1) 2024 Insurance [facility] [id number] Care Teams Senior Infrastructure Architect Relationship Specialty Start Date End Date Ela Leary MD [address] [place] [phone] PCP - General Family Practice 10/26/16
--- OUTSIDE RECORDS SUMMARY | 2024-10-26 08:24 | XMS_ITS | Encounter Summary ---
Author Organization [facility] Address [address] [place] [address] Care Team Providers Care Librarian Special Library Name Role Phone Ela Leary MD Primary Care Provider Encounter Details Date Type Department Care Team (Latest Contact Info) Description 01/25/2006 Outpatient [facility] Cardiology Ancillary Services[place] [address] [place] [address] Alex Manzanares MD NO ADDRESS ON FILE Rheumatic Mitral Insufficiency (Primary Dx); Ventricular Sept Defect Social History Tobacco Use Types Packs/Day Years Used Date Smoking Tobacco: Never Assessed Comments Unknown Sex and Gender Information Value Date Recorded Sex Assigned at Not on file Legal Sex Female 3:56 AM CLINICAL APPEALS RN Gender Identity Not on file Sexual Orientation Not on file documented as of this encounter Plan of Treatment Not on file documented as of this encounter Visit Diagnoses Diagnosis Rheumatic mitral insufficiency- Primary Ventricular sept defect Ventricular septal defect documented in this encounter Care Teams Librarian Special Library Relationship Specialty Start Date End Date Ela Leary MD [address] [place] [phone] PCP - General Family Practice 10/26/16 documented as of this encounter
--- OUTSIDE RECORDS SUMMARY | 2024-10-26 08:24 | XMS_ITS | Encounter Summary ---
Author Organization [facility] Address [address] [place] [address] Care Team Providers Care Manager Science Name Role Phone Ela Leary MD Primary Care Provider Encounter Details Date Type Department Care Team (Latest Contact Info) Description 04/19/1998 Outpatient Historical [facility] Conrad Bowen MD [address] [place] [address] Abdominal pain, unspecified site (Primary Dx); Unspecified asthma(493.90) Social History Tobacco Use Types Packs/Day Years Used Date Smoking Tobacco: Never Assessed Comments Unknown Sex and Gender Information Value Date Recorded Sex Assigned at Not on file 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
--- OUTSIDE RECORDS SUMMARY | 2024-10-26 08:24 | XMS_ITS | Encounter Summary ---
Author Organization [facility] Address [address] [place] [address] Care Team Providers Care Skimmer Name Role Phone Ela Leary MD Primary Care Provider Encounter Details Date Type Department Care Team (Late st Contact Info) Description 06/01/2002 Outpatient Historical [facility] Cardiology Ancillary Services-[place] [address] [place] [address] Shubham Smyth MD [address] [facility] [address] [place] [address] Mitral valve disorder (Primary Dx) Social History Tobacco Use Types Packs/Day Years Used Date Smoking Tobacco: Never Assessed Comments Unknown Sex and Gender Information Value Date Recorded Sex Assigned at Not on file 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
[2024-10-26 08:31] LABS: Hematocrit 40.7 % (36-47); Hemoglobin 11.70 g/dL (11.27-16.99); Mean Corpuscular HGB Conc 28.7 g/dL (30-55); Mean Corpuscular Hemoglobin 32.3 pg (27-33); Mean Corpuscular Volume 112.4 fl (85-98); Nucleated Red Blood Cells % 0.4 %; Platelet Count 133 10^3/cmm (157-399); Red Blood Count 3.62 10^6/uL (3.85-5.65); White Blood Count 5.60 10^3/uL (3.29-11.43)
--- NOTE | 2024-10-26 08:46 | W.ED.SOB ---
HPI - SOB/Dyspnea General: Chief Complaint: Shortness of Breath/Dyspnea Stated Complaint: CHF 10/17 in pain swelling SOB Coughing Time Seen by Provider: 10/26/24 07:58 History of Present Illness: HPI Narrative: 64-year-old female presents emergency room complaining of increased swelling in her legs now extending up to the level of her umbilicus. She did not had any fever sweats or chills she states that has been increasingly hard to walk she has increasing shortness of breath with exertion and worsening orthopnea. When she was seen 7 days ago she was started on oral diuretics he has not had good relief with that with furosemide. Working diagnosis in the emergency room with congestive heart failure. Associated symptoms: Reports chest congestion, orthopnea and palpitations; Deny abdominal pain, chest pain or fever(s) Related Data Home Medications ?Medication ?Instructions ?Recorded ?Confirmed carvedilol 6.25 mg tablet 6.25 mg PO BID 05/28/20 10/26/24 metformin 500 mg tablet 500 mg PO DAILY 05/28/20 10/26/24 montelukast 10 mg tablet 10 mg PO BEDTIME 05/28/20 10/26/24 simvastatin 10 mg tablet 5 mg PO BEDTIME 05/28/20 10/26/24 torsemide 20 mg tablet 20 mg PO DAILY 05/28/20 10/26/24 trandolapril 4 mg tablet 4 mg PO DAILY 05/28/20 10/26/24 allopurinol 100 mg tablet 200 mg PO DAILY 03/10/24 10/26/24 albuterol sulfate 2.5 mg/3 mL 2.5 mg inhalation Q6H PRN 10/17/24 10/26/24 (0.083 %) solution for nebulization Shortness Of Breath aspirin 81 mg tablet,delayed 81 mg PO DAILY 10/17/24 10/26/24 release levothyroxine 88 mcg tablet 88 mcg PO QAM 10/17/24 10/26/24 omeprazole 20 mg capsule,delayed 20 mg PO DAILY 10/17/24 10/26/24 release acetaminophen 500 mg tablet 500 mg PO Q6H PRN Pain 10/26/24 10/26/24 dapagliflozin propanediol 10 mg 10 mg PO DAILY 10/26/24 10/26/24 tablet (Farxiga) Previous Rx's ?Medication ?Instructions ?Recorded azelastine 137 mcg (0.1 %) nasal 2 spray intranasal BID #30 mL 12/23/21 spray albuterol sulfate 90 mcg/actuation 2 inh inhalation Q4H PRN shortness 03/10/24 aerosol inhaler (Ventolin HFA) of breath or wheezing #8.5 grams Allergies Allergy/AdvReac Type Severity Reaction Status Date / Time codeine Allergy ALGY-Hives Verified 10/17/24 11:29 furosemide (From Lasix) Allergy ALGY-Hives Verified 10/17/24 11:29 methylprednisolone (From Allergy ALGY-Anaphy Verified 10/17/24 11:29 Solu-Medrol) laxis morphine Allergy ALGY-Hives Verified 10/17/24 11:29 Review of Systems Const: Denies: fever(s) or chills Card: Reports: palpitations, irregular heart rhythm, edema, swelling of feet/ankles, dyspnea on exertion and orthopnea; Denies: chest pain Resp: Reports: dyspnea, non-productive cough and chest congestion GI: Denies: abdominal pain : Denies: dysuria, urinary frequency or urinary urgency Musc: Denies: neck pain or back pain Skin/Breast: Denies: rash PFSH ED PFSH: Medical History Diabetes Social History Substance/Drug Use: never Physical Exam Const: GENERAL APPEARANCE: cooperative ORIENTATION/CONSCIOUSNESS: Yes awake, Yes oriented to person, Yes oriented to place and Yes oriented to time HENMT: COMMON NORMALS: normocephalic, atraumatic and hearing grossly normal bilaterally HEAD & SCALP: normocephalic and atraumatic Resp: COMMON NORMALS: normal respiratory effort, No retractions, No use of accessory muscles and clear to auscultation bilaterally AUSCULTATION: clear to auscultation bilaterally Cardio: COMMON NORMALS: regular rate, regular rhythm and No murmurs present (Cardio) RATE: regular rate RHYTHM: regular rhythm GI: COMMON NORMALS: Soft to palpation INSPECTION: Yes Abdominal wall edema, Yes Anasarca, Yes abdominal distension and Yes central obesity AUSCULTATION: Yes normoactive bowel sounds PALPATION: Yes Soft to palpation, No Tenderness to palpation present (GI) and No Guarding due to palpation present (GI) OTHER: Anasarca of the abdomen to the level of the umbilicus Extremity: OTHER: 2+ edema lower extremities Neuro: SENSORIUM/ORIENTATION: Yes oriented to person, Yes oriented to place and Yes oriented to time Course Vital Signs: Vital signs: Vital Signs Temperature 97.8 F 10/26/24 08:10 Pulse Rate 71 10/26/24 10:57 Respiratory Rate 19 H 10/26/24 10:57 Blood Pressure 119/68 10/26/24 10:57 Pulse Oximetry 95 10/26/24 10:57 Oxygen Delivery Me thod Room Air 10/26/24 10:57 MDM - SOB/Dyspnea Medical Decision Making Admit for congestive heart failure fluid overload. Patient is dyspneic with significant anasarca. At this time she is not requiring any oxygen. Patient given IV Bumex. Discussed with hospitalist. Patient will need echocardiogram will place on observation orders written Medical Records I reviewed the patient's medical records. Lab Data I reviewed the patient's lab results. 10/26/24 08:20 10/26/24 08:20 Labs/Radiology: Radiology Impressions Chest X-Ray 10/26/24 07:59 IMPRESSION: No acute findings. Laboratory Results WBC 5.60 10^3/uL (3.29-11.43) 10/26/24 08:20 RBC 3.62 10^6/uL (3.85-5.65) L 10/26/24 08:20 Hgb 11.70 g/dL (11.27-16.99) 10/26/24 08:20 Hct 40.7 % (36-47) 10/26/24 08:20 MCV 112.4 fl (85-98) H 10/26/24 08:20 MCH 32.3 pg (27-33) 10/26/24 08:20 MCHC 28.7 g/dL (30-55) L 10/26/24 08:20 RDW 18.3 % (12.1-15.1) H 10/26/24 08:20 Plt Count 133 10^3/cmm (157-399) L 10/26/24 08:20 MPV 10.9 fL (7.4-10.4) H 10/26/24 08:20 Neut % (Auto) 46.2 % 10/26/24 08:20 Lymph % (Auto) 15.0 % 10/26/24 08:20 [place] % (Auto) 8.8 % 10/26/24 08:20 Eos % (Auto) 29.1 % 10/26/24 08:20 Baso % (Auto) 0.7 % 10/26/24 08:20 Neut # (Auto) 2.59 10^3/uL (1.8-7.7) 10/26/24 08:20 Lymph # (Auto) 0.8 10^3/uL (0.8-4.8) 10/26/24 08:20 [place] # (Auto) 0.5 10^3/uL (0.2-0.9) 10/26/24 08:20 Eos # (Auto) 1.6 10^3/uL (0.0-0.8) H 10/26/24 08:20 Baso # (Auto) 0.0 10^3/uL (0.0-0.1) 10/26/24 08:20 Nucleated RBC % (auto) 0.4 % 10/26/24 08:20 Nucleated RBCs # 0.0 /100WBC 10/26/24 08:20 Sodium 142 mmol/L (136-145) 10/26/24 08:20 Potassium 4.4 mmol/L (3.5-5.1) 10/26/24 08:20 Chloride 104 mmol/L (98-107) 10/26/24 08:20 Carbon Dioxide 24 mmol/L (22-29) 10/26/24 08:20 Anion Gap 18.4 (5-19) 10/26/24 08:20 BUN 27 mg/dL (8-23) H 10/26/24 08:20 Creatinine 1.5 mg/dL (0.5-0.9) H 10/26/24 08:20 GFR Calculation 34.9 mL/min (90-130) L 10/26/24 08:20 Glucose 97 mg/dL (65-115) 10/26/24 08:20 Calculated Osmolality 299 mOsm/kg (285-295) H 10/26/24 08:20 Calcium 9.1 mg/dL (8.5-10.5) 10/26/24 08:20 Total Bilirubin 0.4 mg/dL (0.15-1.2) 10/26/24 08:20 AST 11 U/L (0-32) 10/26/24 08:20 ALT < 5 U/L (0-33) 10/26/24 08:20 Alkaline Phosphatase 71 U/L (35-105) 10/26/24 08:20 Total Protein 7.1 g/dL (6.6-8.7) 10/26/24 08:20 Albumin 3.8 g/dL (3.5-5.2) 10/26/24 08:20 Globulin 3.3 g/dL (1.3-4.6) 10/26/24 08:20 Urine Color Yellow (Yellow) 10/26/24 08:45 Urine Appearance Clear (CLEAR) 10/26/24 08:45 Urine pH 5.5 (5-7) 10/26/24 08:45 Ur Specific [place] 1.034 (1.005-1.030) H 10/26/24 08:45 Urine Protein 1+ (Negative) A 10/26/24 08:45 Urine Glucose (UA) 3+ (Normal) H 10/26/24 08:45 Urine Ketones Trace (Negative) 10/26/24 08:45 Urine Blood Negative (Negative) 10/26/24 08:45 Urine Nitrate Negative (Negative) 10/26/24 08:45 Urine Bilirubin Negative (Negative) 10/26/24 08:45 Urine Urobilinogen 1.0 mg/dL (Negative) 10/26/24 08:45 Ur Leukocyte Esterase Trace (Negative) A 10/26/24 08:45 Urine RBC 0-2 /hpf (0-2) 10/26/24 08:45 Urine WBC 0-5 /hpf (0-5) 10/26/24 08:45 Ur Squamous Epith Cells 6-10 /hpf (0-5) 10/26/24 08:45 Amorphous Sediment Not Reportable 10/26/24 08:45 Urine Bacteria Trace /hpf (NONE) 10/26/24 08:45 Hyaline Casts 7.85 /lpf 10/26/24 08:45 All radiology interpretation(s) finalized by discharge EKG Data EKG 1: Interpretation: EKG 10/26/2024 8:02 AM atrial fibrillation. Rate of 83 QTc 4 2 any 6. Compared to EKG 10/17/2024 patient patient atrial fibrillation at that time as well no significant changes. Discharge Plan Discharge Condition: Stable Prescriptions: No Action azelastine 137 mcg (0.1 %) aerosol,spray 2 spray intranasal BID Qty: 30 2RF Rx Instructions: administer into each nostril montelukast 10 mg tablet 10 mg PO BEDTIME carvedilol 6.25 mg tablet 6.25 mg PO BID trandolapril 4 mg tablet 4 mg PO DAILY simvastatin 10 mg tablet 5 mg PO BEDTIME torsemide 20 mg tablet 20 mg PO DAILY metformin 500 mg tablet 500 mg PO DAILY allopurinol 100 mg tablet 200 mg PO DAILY albuterol sulfate [Ventolin HFA] 90 mcg/actuation HFA aerosol inhaler 2 inh inhalation Q4H PRN (Reason: shortness of breath or wheezing) Qty: 8.5 0RF albuterol sulfate 2.5 mg /3 mL (0.083 %) solution for nebulization 2.5 mg inhalation Q6H PRN (Reason: Shortness Of Breath) aspirin [Aspir-81] 81 mg Tablet,Delayed Release (Dr/Ec) 81 mg PO DAILY levothyroxine 88 mcg tablet 88 mcg PO QAM omeprazole 20 mg capsule,delayed release(DR/EC) 20 mg PO DAILY acetaminophen 500 mg Tablet 500 mg PO Q6H PRN (Reason: Pain) dapagliflozin propanediol [Farxiga] 10 mg tablet 10 mg PO DAILY Referrals: Shanda Menchaca, [facility] [employer] [Primary Care Provider, Nurse Practitioner] Print Language: Cambodian Coding Level of Care Code ED Gas Pump Attendant for Ralph Gurrola
[2024-10-26 09:04] LABS: Alanine Aminotransferase < 5 U/L (0-33); Albumin Level 3.8 g/dL (3.5-5.2); Alkaline Phosphatase 71 U/L (35-105); Anion Gap 18.4 (5-19); Aspartate Amino Transferase 11 U/L (0-32); Blood Urea Nitrogen 27 mg/dL (8-23); Calcium 9.1 mg/dL (8.5-10.5); Carbon Dioxide 24 mmol/L (22-29); Chloride 104 mmol/L (98-107); Creatinine Clr Calc Pharmacy 71.2206; Globulin 3.3 g/dL (1.3-4.6); Glucose 97 mg/dL (65-115); Osmolality Calculated 299 mOsm/kg (285-295); Potassium 4.4 mmol/L (3.5-5.1); Sodium 142 mmol/L (136-145); Total Protein 7.1 g/dL (6.6-8.7)
[2024-10-26 09:05] LABS: Glucose Urine UA 3+ (Normal); Nitrate Urine Negative (Negative)
[2024-10-26 09:09] LABS: Add Urine Microscopic? YES
[2024-10-26 09:39] LABS: Specific Gravity, Urine 1.034 (1.005-1.030); UA Slide Review UA Slide Review Perf
[2024-10-26] MEDS: bumetanide 0.25 mg/mL SDV 4 mL 2 MG IVP (10:55)
--- NOTE | 2024-10-26 13:35 | PM.HP ---
Providers/Chief Complaint Admitting Physician: Nikunj Hill Primary Care Provider: Shanda Menchaca Chief Complaint: CHF 10/17 in pain swelling SOB Coughing History of Present Illness Chely Katz is a 64 year old congestive heart failure (CHF), hypertension (HTN), hyperlipidemia (HLD), type 2 diabetes mellitus (DM2), hypothyroidism, and asthma. Recently evaluated in the emergency department (ED) on October 17 for abdominal pain and leg swelling; discharged but symptoms progressed. Returns with continued and worsening edema now extending from the legs up to the umbilicus, causing difficulty walking. Reports dyspnea and orthopnea in the ED, as well as cough that began shortly after the 10/17 visit. Took torsemide twice daily at home without relief; notes marked diuresis after receiving intravenous (IV) diuretic in ED, voiding approximately every 20 minutes. Declines urinary catheter placement and prefers to ambulate to the bathroom. Reports a painful rash under the abdominal pannus; not using topical treatments regularly. Denies fever, chills, sore throat, rhinorrhea, nausea, vomiting, diarrhea, hematuria, melena, or chest pain/pressure. Usually able to sleep flat, but has had difficulty due to symptoms. Past cardiac history includes CHF ?several times,? prior angiogram in 2011 showing no obstructive coronary disease and no stent placement. Patient describes having had ?blood clots? years ago and has been taking aspirin; denies any prior stroke. Socially, no tobacco history, no substance use, and only rare alcohol use years ago. ED data: BP 119/68 mmHg, pulse 71 bpm, respiratory rate 19, temperature 97.8 F, SpO2 95% on room air. White blood cell count normal; hemoglobin normal; platelets mildly low at 133. Electrolytes within normal limits (sodium, potassium, chloride, bicarbonate). Blood urea nitrogen (BUN) 27; creatinine 1.5 (acute kidney injury compared to prior: 1.1 on 10/17 and 1.0 in February). Liver panel normal (total bilirubin, AST/ALT, ALP normal). Albumin and globulin normal. Urinalysis with trace leukocytes, trace bacteria, and hyaline casts. Chest X-ray without acute findings. Electrocardiogram (EKG) auto-read with atrial fibrillation, reported as new versus no prior documented history. Review of Systems Const: Denies: fever(s), chills, body aches or malaise ENMT: Denies: throat pain Card: Reports: edema and dyspnea on exertion; Denies: chest pain or pre-syncope Resp: Reports: dyspnea and non-productive cough; Denies: productive cough, change in phlegm color or hemoptysis GI: Reports: other (Abdominal wall edema and distention); Denies: abdominal pain, nausea, vomiting, diarrhea, constipation, hematochezia or melena : Denies: flank pain, urinary frequency or hematuria Musc: Denies: back pain, joint swelling or joint redness Skin/Breast: Denies: rash or new lesions Neuro: Denies: headache(s) or confusion Medications/Allergies Home Medications ?Medication ?Instructions ?Recorded ?Confirmed ?Last Taken ?Type carvedilol 6.25 mg tablet 6.25 mg PO BID 05/28/20 10/26/24 10/25/24 History metformin 500 mg tablet 500 mg PO DAILY 05/28/20 10/26/24 10/26/24 History montelukast 10 mg tablet 10 mg PO BEDTIME 05/28/20 10/26/24 10/25/24 History simvastatin 10 mg tablet 5 mg PO BEDTIME 05/28/20 10/26/24 10/25/24 History torsemide 20 mg tablet 20 mg PO DAILY 05/28/20 10/26/24 10/25/24 History trandolapril 4 mg tablet 4 mg PO DAILY 05/28/20 10/26/24 10/25/24 History azelastine 137 mcg (0.1 %) nasal 2 spray intranasal BID #30 mL 12/23/21 10/26/24 10/25/24 Rx spray albuterol sulfate 90 mcg/actuation 2 inh inhalation Q4H PRN shortness 03/10/24 10/26/24 Unknown Rx aerosol inhaler (Ventolin HFA) of breath or wheezing #8.5 grams allopurinol 100 mg tablet 200 mg PO DAILY 03/10/24 10/26/24 10/25/24 History albuterol sulfate 2.5 mg/3 mL 2.5 mg inhalation Q6H PRN 10/17/24 10/26/24 Unknown History (0.083 %) solution for nebulization Shortness Of Breath aspirin 81 mg tablet,delayed 81 mg PO DAILY 0910/26/24 10/25/24 History release levothyroxine 88 mcg tablet 88 mcg PO QAM 10/17/24 10/26/24 10/25/24 History omeprazole 20 mg capsule,delayed 20 mg PO DAILY 10/17/24 10/26/24 10/25/24 History release acetaminophen 500 mg tablet 500 mg PO Q6H PRN Pain 10/26/24 10/26/24 10/26/24 History dapagliflozin propanediol 10 mg 10 mg PO DAILY 10/26/24 10/26/24 10/25/24 History tablet (Farxiga) Allergies Allergy/AdvReac Type Severity Reaction Status Date / Time codeine Allergy ALGY-Hives Verified 10/17/24 11:29 furosemide (From Lasix) Allergy ALGY-Hives Verified 10/17/24 11:29 methylprednisolone (From Allergy ALGY-Anaphy Verified 10/17/24 11:29 Solu-Medrol) laxis morphine Allergy ALGY-Hives Verified 10/17/24 11:29 PFSH Acute PFSH: Medical History Asthma Congestive heart failure HLD (hyperlipidemia) Diabetes Social History Smoking and tobacco/nicotine status: never used tobacco/nicotine Alcohol intake: current Alcohol intake frequency: holidays/special occasions only Alcohol use comment: In the past, not recently Substance/Drug Use: never Vitals/I&O/Wt Last Vital Signs Temp 97.8 F 10/26/24 08:10 Pulse 85 10/26/24 13:00 Resp 13 10/26/24 13:00 BP 115/71 10/26/24 13:00 Pulse Ox 96 10/26/24 13:00 O2 Del Method Room Air 10/26/24 10:57 Weight last 48 hrs Weight 120.656 kg Physical Exam Const: COMMON NORMALS: patient oriented x3 and alert GENERAL APPEARANCE: cooperative ORIENTATION/CONSCIOUSNESS: Yes awake HENMT: COMMON NORMALS: oropharynx normal Neck/C-Spine: COMMON NORMALS: no JVD Resp: COMMON NORMALS: normal respiratory effort AUSCULTATION: diminished lung sounds Cardio: COMMON NORMALS: no JVD, regular rhythm, S1 normal heart sound present, S2 normal heart sound present and No murmurs present (Cardio) RHYTHM: regular rhythm HEART SOUNDS: S1 normal heart sound present and S2 normal heart sound present GI: COMMON NORMALS: Normal to inspection, nondistended, normoactive bowel sounds present, Soft to palpation and non-tender INSPECTION: Yes abdominal distension and Yes other (large pannus with sign edema of lower abdomen) PALPATION: Yes Soft to palpation Extremity: COMMON NORMALS: no joint enlargement Neuro: COMMON NORMALS: patient oriented x3 and moves all extremities SENSORIUM/ORIENTATION: Yes alert Skin: COMMON NORMALS: no rashes or lesions noted NARRATIVE SKIN EXAM: Erythema under pannus and lower portion of pannus GENERAL SKIN EXAM: no rashes or lesions noted Data 10/26/24 08:20 10/26/24 08:20 A&P Assessment and plan 1. Congestive heart failure: Acute diastolic congestive heart failure, but possibly another type, needing further investigation. Symptomatic fluid overload with edema extending to umbilicus, dyspnea/orthopnea; responsive to IV diuresis; not blood with medications, without response to home diuretics, so far with response to IV diuretics. Chest X-ray without acute findings; abdominal wall edema present. Congestive nephropathy with ABDOUL. Reviewed vitals, CBC, CMP, UA, chest x-ray, past CT abdomen pelvis, EKG, ED provider, discussed with ED provider. - Continue IV diuresis with furosemide (Lasix) 40 mg IV twice daily (BID) - Monitor intake and output (I&O) closely and reassess volume status - Monitor electrolytes (risk of electrolyte disturbances) - Monitor renal function given risk of worsening ABDOUL with diuresis - Limit total fluid intake to approximately 1 liter per day - Obtain echocardiogram to assess cardiac function, including evaluation for diastolic versus systolic dysfunction and right heart function She declines Booker. 2. ABDOUL (acute kidney injury): Possibly due to nephropathy with CHF peripheral edema and anasarca, likely GI edema. No obstructive uropathy noted on review of CT. Creatinine 1.5 (prior 1.1 on 10/17; 1.0 in February). Electrolytes otherwise normal; UA with trace leukocytes/bacteria and hyaline casts. No NSAID use. - Hold trandolapril (MANE inhibitor) - Hold dapagliflozin (Farxiga) - Hold metformin for now - Monitor renal function - Monitor for risk of worsening ABDOUL with diuresis - Check creatine kinase (CK) - Review prior CT abdomen/pelvis for any obstructive uropathy 3. Anasarca: As above. Complicated by intertrigo. Nystatin cream requested. 4. Atrial fibrillation, chronic: Newly identified atrial fibrillation by ED EKG auto-read; patient previously not on anticoagulation beyond aspirin. - Initiate therapeutic anticoagulation with enoxaparin (Lovenox) initially; may transition to apixaban (Eliquis) at discharge - Monitor heart rate with atrial fibrillation - Assess with echocardiogram as above Plan: Asthma with cough/dyspnea : With mild exacerbation. History of asthma; cough and dyspnea; no wheezes on exam but diminished breath sounds. - Provide nebulizer treatments as needed - Add inhaled budesonide - Check respiratory viral panel. Intertrigo under abdominal pannus : Painful rash reported under pannus; abdominal wall edema; pannus predisposes to rash. - Start nystatin cream for pannus intertrigo Diabetes mellitus type 2 : History of DM2; medication adjustments due to ABDOUL. - Hold metformin for now (as above) - Hold dapagliflozin (Farxiga) (as above) - Monitor POC glucose, SSI insulin Hypothyroidism : Chronic condition. - Continue levothyroxine Hyperlipidemia : Chronic condition. - Continue statin Hypertension : Chronic condition; current blood pressures allow holding agents. - Hold antihypertensive therapy for now due to blood pressure Morbid obesity with large pannus: Follow-up with primary provider regarding assistance with weight loss options. Additional diagnostics/monitoring : Further evaluation for ischemia and prior imaging review. - Complete cardiac enzyme series to assess for possible ischemia - Review CT abdomen/pelvis from prior visit to assess for ascites and consider paracentesis if ascites is present PDMP PDMP Reviewed: Not Reviewed Attestations Medical Necessity Statement*: Admission over 2 midnights anticipated for assessment management of acute diastolic CHF with anasarca, congestive nephropathy with ABDOUL, congestive GI changes, and not absorbing and not responding to p.o./outpatient treatment with diuretics, mild asthma exacerbation, and lady with metabolic syndrome, additional colitides. and High MDM includes amount and/or complexity of data reviewed/ordered [ previous or external records, resulted lab(s)/test(s), ordered lab(s)/test(s) and other healthcare professional discussion] and described risk of complication, morbidity or mortality of management as documented Diagnoses Congestive heart failure I50.9 ABDOUL (acute kidney injury) N17.9 Anasarca R60.1 Atrial fibrillation, chronic I48.20
--- NOTE | 2024-10-26 14:05 | USCV_ITS ---
Chely Katz Age: 64 Gender: F : 1960 Exam Date: 10/26/2024 16:17 Ordering Phys: Salvador Dickinson DO Technologist: OLEKSANDR [place] [facility] [place]: CHF BP: 102 / 67 HR: 66 Rhythm: Sinus Technical Quality: Adequate MEASUREMENTS (Male / Female) Normal Values 2D ECHO LV Diastolic Diameter PLAX 5.4 cm 4.2 - 5.9 / 3.9 - 5.3 cm IVS Diastolic Thickness 0.7 cm 0.6 - 1.0 / 0.6 - 0.9 cm IVS Systolic Thickness 1.3 cm LVPW Diastolic Thickness 1.4 cm 0.6 - 1.0 / 0.6 - 0.9 cm LVPW Systolic Thickness 1.9 cm LVOT Diameter 2.0 cm LV Ejection Fraction 2D Teich 54.1 % LV Ejection Fraction MOD 4C 53.7 % LV Ejection Fraction MOD 2C 60.7 % LV Ejection Fraction 2C AL 60.6 % LA Diameter 3.9 cm RA Systolic Volume 4C AL 65.1 ml RA Systolic Volume 4C MOD 63.8 ml Aorta at Sinotubular Diameter 1.9 cm M-MODE LA Ao Ratio MM 2.0 AV Cusp Separation MM 1.5 cm DOPPLER AV Peak Velocity 105.0 cm/s LVOT Peak Velocity 65.0 cm/s AV Area Cont Eq vti 1.5 cm squared AV Area Cont Eq pk 1.8 cm squared MV Peak Velocity 159.0 cm/s MV Area PHT 4.6 cm squared Mitral E to A Ratio 1.7 TR Peak Velocity 257.0 cm/s TR Peak Gradient 26.4 mmHg TV Peak E Velocity 98.0 cm/s PV Peak Velocity 109.0 cm/s FINDINGS Left Ventricle Left ventricle is mildly dilated. LV systolic function is mildly reduced with EF of 45-50%. Septal motion is consistent with the conduction abnormality. Right Ventricle Mildly hypokinetic Right Atrium Normal in size Left Atrium Normal in size Mitral Valve Moderate mitral annular calcification. Moderate to severe mitral regurgitation Aortic Valve Aortic valve is thickened. No significant stenosis or regurgitation. Tricuspid Valve Insufficient TR jet to calculate RVSP Pulmonic Valve Not well visualized Pericardium Normal Aorta Normal in size IVC Not well visualized. CONCLUSIONS Left ventricle is mildly dilated. LV systolic function is mildly reduced with EF of 45-50%. Septal motion is consistent with the conduction abnormality. RV is hypokinetic Moderate to severe mitral regurgitation Kingston White MD (Electronically Signed) Final Date: 27 October 2024 08:59 S
--- NOTE | 2024-10-26 14:05 | USCV_ITS ---
[place] Age: 64 Gender: F : 1960 Exam Date: 10/26/2024 16:36 Ordering Phys: Nikunj Hill MD Technologist: OLEKSANDR [place] [facility] [place]: Assess for dvt HISTORY: Assess for dvt PROCEDURES: Venous duplex imaging was performed in bilateral lower extremities. The following venous structures were evaluated: common femoral vein, profunda vein, proximal portion of the greater saphenous vein, superficial femoral vein, and the popliteal vein. In addition, the posterior tibial and peroneal trunk were evaluated. Serial compression, augmentation maneuvers, and spectral Doppler flow evaluation were performed. FINDINGS: No evidence of DVT seen in any vessel visualized at this time. CONCLUSIONS No evidence of right lower extremity DVT. No evidence of left lower extremity DVT. Don Olivia MD (Electronically Signed) Final Date: 27 October 2024 09:43 S
[2024-10-26 16:26] LABS: Coronavirus 229E,HKU1,NL63,OC4 Not Detected (NOT DETECT); Parainfluenza Virus Type 1 Not Detected (NOT DETECT); Parainfluenza Virus Type 2 Not Detected (NOT DETECT); Parainfluenza Virus Type 3 Not Detected (NOT DETECT); Parainfluenza Virus Type 4 Not Detected (NOT DETECT); SARS-COV-2 Not Detected (NOT DETECT)
[2024-10-26] MEDS: bumetanide 0.25 mg/mL SDV 10 mL 3 MG IVP (17:11)
[2024-10-27] VITALS (10 sets, daily range): BP systolic 91–135; BP diastolic 53–67; PULSE 67–96; RESP 15–18; TEMP 36.4–36.6; O2SAT 92–98
[2024-10-27 03:20] LABS: Hematocrit 39.5 % (36-47); Hemoglobin 12.20 g/dL (11.27-16.99); Mean Corpuscular HGB Conc 30.9 g/dL (30-55); Mean Corpuscular Hemoglobin 32.5 pg (27-33); Mean Corpuscular Volume 105.3 fl (85-98); Nucleated Red Blood Cells % 0 %; Platelet Count 165 10^3/cmm (157-399); Red Blood Count 3.75 10^6/uL (3.85-5.65); White Blood Count 5.90 10^3/uL (3.29-11.43)
[2024-10-27 03:48] LABS: Anion Gap 18.8 (5-19); Blood Urea Nitrogen 26 mg/dL (8-23); Calcium 9.1 mg/dL (8.5-10.5); Carbon Dioxide 28 mmol/L (22-29); Chloride 101 mmol/L (98-107); Creatinine Clr Calc Pharmacy 97.1189; Glucose 93 mg/dL (65-115); Magnesium 1.9 mg/dL (1.7-2.3); Osmolality Calculated 302 mOsm/kg (285-295); Potassium 3.8 mmol/L (3.5-5.1); Sodium 144 mmol/L (136-145)
[2024-10-27] MEDS: bumetanide 0.25 mg/mL SDV 10 mL 3 MG IVP (05:43)
--- OUTSIDE RECORDS SUMMARY | 2024-10-27 07:30 | XMS_ITS | Encounter Summary ---
Author Organization [facility] Address [address] [place] [address] Care Team Providers Care Direct Mail Clerk Name Role Phone Ela Leary MD Primary Care Provider Encounter Details Date Type Department Care Team (Late st Contact Info) Description 07/03/2009 Ancillary Orders [facility] Cardiology- [place] [address] [facility] [address] [place] [address] Mane Prater MD [address] [facility] [address] [place] [address] Mitral Valve Disorders Social History Tobacco Use Types Packs/Day Years Used Date Smoking Tobacco: Never Alcohol Use Standard Drinks/Week Comments Not Asked 0 (1 standard drink = 0.6 oz pur e alcohol) Comments Unknown Sex and Gender Information Value Date Recorded Sex Assigned at Not on file 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 Gender Identity Not on file Sexual Orientation Not on file documented as of this encounter Plan of Treatment Not on file documented as of this encounter Results * ECHO COMPLETE (07/03/2009 1:13 PM CDT) 07/03/2009 11:5 3 AM CDT Narrative INTERFACE SYSTEM - 07/03/2009 3:10 PM CDT [facility] - Cardiology [address] [facility] [address] [place] [address] Transthoracic Echocardiography Patient: Chely Katz Study ID: ECHOCARDIOGRAM C Gender: F : 1960 Age: 49 Location: Room: Height: 149.9cm Study Date: 07/03/2009 Patient status: P Weight: 121.6kg Study Time: 11:53 AM BSA: 2.09m^2 *Ordering:Mane SequeiraInterpreting:*Hector DenisMetabolic Specialist:Jossy Robles Diagnoses supporting medical necessity: Mitral [...] (*) weaver values outside specified normal range. [facility] is accredited with the Intersocietal Commission for the Accreditation of Echocardiography Laboratories (ICAEL) Prepared and Electronically Authenticated Hector Denis [id number] Procedure Note Nik Denis MD - 07/03/2009 [facility] - Cardiology [address] [facility] [address] [place] [address] Transthoracic Echocardiography Patient: Chely Katz Study ID: ECHOCARDIOGRAM C Gender: F : 1960 Age: 49 Location: Room: Height: 149.9cm Study Date: 07/03/2009 Patient status: P Weight: 121.6kg Study Time: 11:53 AM BSA: 2.09m^2 *Ordering:* Mane Prater *Interpreting:*Hector Denis *Metabolic Specialist:Jossy Robles Diagnoses supporting medical necessity: Mitral [...] (*) weaver values outside specified normal range. [facility] is accredited with the Intersocietal Commission for the Accreditation of Echocardiography Laboratories (ICAEL) Prepared and Electronically Authenticated Hector Denis [id number] us Mane Prater MD ORDERABLES Final Result INTERFACE SYSTEM Refer to clinic/hospital department documented in this encounter Visit Diagnoses Diagnosis Mitral valve disorders(424.0) Mitral valve disorders documented in this encounter Care Teams Direct Mail Clerk Relationship Specialty Start Date End Date Ela Leary MD [address] [place] [phone] PCP - General Family Practice 10/26/16 documented as of this encounter
--- OUTSIDE RECORDS SUMMARY | 2024-10-27 07:30 | XMS_ITS | Encounter Summary ---
Author Organization [facility] Address [address] [place] [address] Care Team Providers Care Observation Nurse Name Role Phone Ela Leary MD Primary Care Provider Encounter Details Date Type Department Care Team (Latest Contact Info) Description 11/14/1998 Outpatient Historical [facility] Cardiology- [place] [address] [place] [address] Mane Prater MD [address] [facility] [address] [place] [address] Unspecified transient cerebral ischemia (Primary Dx); Mitral stenosis with insufficiency Social History Tobacco Use Types Packs/Day Years Used Date Smoking Tobacco: Never Assessed Comments Unknown Sex and Gender Information Value Date Recorded Sex Assigned at Not on file 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
--- OUTSIDE RECORDS SUMMARY | 2024-10-27 07:30 | XMS_ITS | Clinical Summary ---
Author Organization [employer] Address [address] [facility] Attn: [place] [address] Care Team Providers Care Associate Business Analyst Name Role Phone Ela Leary MD Primary [...] Type Department Care Team Description 10/24/2024 Telephone [facility] [address] [facility] [address] [place] [address] Shubham Smyth MD schedule consult 09/20/2024 Abstract [facility] [address] [facility] [address] [place] [address] Shanda Menchaca FNP from Last 3 [...] on file Legal Sex Female 3:49 AM TRADE MARK EXAMINER Gender Identity Not on file Sexual Orientation Not on file Last Filed Vital Signs Vital Sign Reading Time Taken Comments Blood Pressure 130/68 03/10/2019 10:14 AM TRADE MARK EXAMINER Pulse 60 03/10/2019 10:14 AM TRADE MARK EXAMINER Temperature - - Respiratory Rate - - Oxygen Saturation - - Inhaled Oxygen Concentration - - Weight 126.1 kg (278 lb) 03/10/2019 10:14 AM TRADE MARK EXAMINER Height 149.9 cm (4' 11 ) 03/10/2019 10:14 AM TRADE MARK EXAMINER Body Mass Index 56.15 03/10/2019 10:14 AM TRADE MARK EXAMINER Plan of Treatment Health Maintenance Due Date [...] SCREENING 02/07/2024 INFLUENZA VACCINE (#1) 2024 Insurance [facility] [id number] Care Teams Associate Business Analyst Relationship Specialty Start Date End Date Ela Leary MD [address] [place] [phone] PCP - General Family Practice 10/26/16
--- OUTSIDE RECORDS SUMMARY | 2024-10-27 07:30 | XMS_ITS | Encounter Summary ---
Author Organization [facility] Address [address] [place] [address] Care Team Providers Care Buoy Tender Name Role Phone Ela Leary MD Primary Care Provider Encounter Details Date Type Department Care Team (Latest Contact Info) Description 05/26/2001 Outpatient Historical [facility] Cardiology- [place] [address] [place] [address] Mane Prater MD [address] [facility] [address] [place] [address] PRIM CARDIOMYOPATHY NEC (CMS/HCC) (Primary Dx); Mitral valve disorder Social History Tobacco Use Types Packs/Day Years Used Date Smoking Tobacco: Never Assessed Comments Unknown Sex and Gender Information Value Date Recorded Sex Assigned at Not on file Legal 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
--- OUTSIDE RECORDS SUMMARY | 2024-10-27 07:30 | XMS_ITS | Encounter Summary ---
Author Organization [facility] Address [address] [place] [address] Care Team Providers Care Hospice Volunteer Name Role Phone Ela Leary MD Primary Care Provider Encounter Details Date Type Department Care Team (Latest Contact Info) Description 05/26/2001 Outpatient Historical [facility] Cardiology Ancillary Services-[place] [address] [place] [address] Al Diaz MD [address] [address] [place] [address] Mitral valve disorder (Primary Dx) Social History Tobacco Use Types Packs/Day Years Used Date Smoking Tobacco: Never Assessed Comments Unknown Sex and Gender Information Value Date Recorded Sex Assigned at Not on file 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
--- OUTSIDE RECORDS SUMMARY | 2024-10-27 07:30 | XMS_ITS | Encounter Summary ---
Author Organization [facility] Address [address] [place] [address] Care Team Providers Care Twister Operator Name Role Phone Ela Leary MD Primary Care Provider Reason for Visit * Reason Onset Date Comments schedule consult 10/24/2024 Encounter Details Date Type Department Care Team (Late st Contact Info) Description 10/24/2024 Telephone [facility] [address] [facility] [address] [place] [address] Shubham Smyth MD [address] [facility] [address] [place] [address] schedule consult Social History Tobacco Use Types Packs/Day Years Used Date Smoking Tobacco: Never Smokeless Tobacco: Never Alcohol Use Standard Drinks/Week Comments No 0 (1 standard drink = 0.6 oz pur e alcohol) Comments Unknown Sex and Gender Information Value Date Recorded Sex Assigned at Not on file 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 Please call her mother to discuss. Alana José [facility] documented in this encounter Plan of Treatment Not on file documented as of this encounter Visit Diagnoses Not on filedocumented in this encounter Care Teams Twister Operator Relationship Specialty Start Date End Date Ela Leary MD [address] [place] [address] PCP - General Family Practice 10/26/16 documented as of this encounter
--- OUTSIDE RECORDS SUMMARY | 2024-10-27 07:30 | XMS_ITS | Encounter Summary ---
Author Organization [facility] Address [address] [place] [address] Care Team Providers Care Banking Manager Name Role Phone Ela Leary MD Primary Care Provider Encounter Details Date Type Department Care Team (Latest Contact Info) Description 08/16/1998 Outpatient Historical [facility] Layo Rose Jr., MD [address] [place] [address] Dietary surveil/cosmetic counselor (Primary Dx) Social History Tobacco Use Types Packs/Day Years Used Date Smoking Tobacco: Never Assessed Comments Unknown Sex and Gender Information Value Date Recorded Sex Assigned at Not on file Legal Sex Female 3:56 AM BACKEND TESTER Gender Identity Not on file Sexual Orientation Not on file documented as of this encounter Plan of Treatment Not on file documented as of this encounter Visit Diagnoses Diagnosis Dietary surveil/cosmetic counselor- Primary Dietary surveillance and counseling documented in this encounter Care Teams Banking Manager Relationship Specialty Start Date End Date Ela Leary MD [address] [place] [phone] PCP - General Family Practice 10/26/16 documented as of this encounter
--- OUTSIDE RECORDS SUMMARY | 2024-10-27 07:30 | XMS_ITS | Encounter Summary ---
Author Organization [facility] Address [address] [place] [address] Care Team Providers Care Protection Chief Industrial Plant Name Role Phone Ela Leary MD Primary Care Provider Encounter Details Date Type Department Care Team (Latest Contact Info) Description 07/12/1998 Outpatient Historical [facility] Layo Rose Jr., MD [address] [place] [address] Obesity, unspecified (Primary Dx); Dietary surveil/auto travel counselor Social History Tobacco Use Types Packs/Day Years Used Date Smoking Tobacco: Never Assessed Comments Unknown Sex and Gender Information Value Date Recorded Sex Assigned at Not on file Legal 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
--- OUTSIDE RECORDS SUMMARY | 2024-10-27 07:30 | XMS_ITS | Encounter Summary ---
Author Organization [facility] Address [address] [place] [address] Care Team Providers Care Visual Design Lead Name Role Phone Ela Leary MD Primary Care Provider Encounter Details Date Type Department Care Team (Late st Contact Info) Description 09/06/2003 Outpatient Historical [facility] Cardiology- [place] [address] [place] [address] Mane Prater MD [address] 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
--- OUTSIDE RECORDS SUMMARY | 2024-10-27 07:30 | XMS_ITS | Encounter Summary ---
Author Organization [facility] Address [address] [place] [address] Care Team Providers Care Roller Coaster Designer Name Role Phone Ela Leary MD Primary Care Provider Encounter Details Date Type Department Care Team (Late st Contact Info) Description 10/27/[address] [facility] Cardiology- [place] [address] [place] [address] Mane Prater MD [address] [facility] [address] [place] [address] RHEUMATIC MITRAL INSUFF (Primary Dx); BENIGN HYP HRT DIS W/O HRT FAIL Social History Tobacco Use Types Packs/Day Years Used Date Smoking Tobacco: Never Assessed Comments Unknown Sex and Gender Information Value Date Recorded Sex Assigned at Not on file Legal Sex Female 3:56 AM DISH STACKER Gender Identity Not on file Sexual Orientation Not on file documented as of this encounter Plan of Treatment Not on file documented as of this encounter Visit Diagnoses Diagnosis Rheumatic mitral insufficiency- Primary Benign hypertensive heart disease without heart failure documented in this encounter Care Teams Roller Coaster Designer Relationship Specialty Start Date End Date Ela Leary MD [address] [place] [phone] PCP - General Family Practice 10/26/16 documented as of this encounter
--- OUTSIDE RECORDS SUMMARY | 2024-10-27 07:30 | XMS_ITS | Encounter Summary ---
Author Organization [facility] Address [address] [place] [address] Care Team Providers Care Veterans' Counselor Name Role Phone Ela Leary MD Primary Care Provider Encounter Details Date Type Department Care Team (Latest Contact Info) Description 01/25/2006 Outpatient Historical [facility] Cardiology- [place] [address] [place] [address] Amado Li, [facility] [address] [place] [address] Unspecified Hypertensive Heart Disease without Heart Failure (Primary Dx); Rheumatic Mitral Insufficiency Social History Tobacco Use Types Packs/Day Years Used Date Smoking Tobacco: Never Assessed Comments Unknown Sex and Gender Information Value Date Recorded Sex Assigned at Not on file Legal 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
--- OUTSIDE RECORDS SUMMARY | 2024-10-27 07:30 | XMS_ITS | Encounter Summary ---
Author Organization [facility] Address [address] [place] [address] Care Team Providers Care Pattern Hanger Name Role Phone Ela Leary MD Primary Care Provider Encounter Details Date Type Department Care Team (Latest Contact Info) Description 01/25/2006 Outpatient [facility] Cardiology Ancillary Services-[place] [address] [place] [address] Alex Manzanares MD NO ADDRESS ON FILE Rheumatic Mitral Insufficiency (Primary Dx); Ventricular Sept Defect Social History Tobacco Use Types Packs/Day Years Used Date Smoking Tobacco: Never Assessed Comments Unknown Sex and Gender Information Value Date Recorded Sex Assigned at Not on file Legal Sex Female 3:56 AM SUPERVISOR OPENING AND PICKING Gender Identity Not on file Sexual Orientation Not on file documented as of this encounter Plan of Treatment Not on file documented as of this encounter Visit Diagnoses Diagnosis Rheumatic mitral insufficiency- Primary Ventricular sept defect Ventricular septal defect documented in this encounter Care Teams Pattern Hanger Relationship Specialty Start Date End Date Ela Leary MD [address] [place] [phone] PCP - General Family Practice 10/26/16 documented as of this encounter
--- OUTSIDE RECORDS SUMMARY | 2024-10-27 07:30 | XMS_ITS | Encounter Summary ---
Author Organization [facility] Address [address] [place] [address] Care Team Providers Care Assistant Media Buyer Name Role Phone Ela Leary MD Primary Care Provider Encounter Details Date Type Department Care Team (Late st Contact Info) Description 09/26/1998 Outpatient Historical [facility] Cardiology Ancillary Services-[place] [address] [place] [address] Mane Prater MD [address] [place] [address] Mitral valve disorder (Primary Dx) Social History Tobacco Use Types Packs/Day Years Used Date Smoking Tobacco: Never Assessed Comments Unknown Sex and Gender Information Value Date Recorded Sex Assigned at Not on file Legal Sex Female 3:56 AM EMERGENCY ROOM PHYSICIAN 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
--- OUTSIDE RECORDS SUMMARY | 2024-10-27 07:30 | XMS_ITS | Encounter Summary ---
Author Organization [facility] Address [address] [place] [address] Care Team Providers Care Process Improvement Engineer Name Role Phone Ela Leary MD Primary Care Provider Encounter Details Date Type Department Care Team (Late st Contact Info) Description 06/01/2002 Outpatient Historical [facility] Cardiology- [place] [address] [place] [address] Mane Prater MD [address] [facility] [address] [place] [address] RHEUMATIC MITRAL INSUFF (Primary Dx) Social History Tobacco Use Types Packs/Day Years Used Date Smoking Tobacco: Never Assessed Comments Unknown Sex and Gender Information Value Date Recorded Sex Assigned at Not on file Legal Sex Female 3:56 AM PRINT 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
--- OUTSIDE RECORDS SUMMARY | 2024-10-27 07:30 | XMS_ITS | Encounter Summary ---
Author Organization [facility] Address [address] [place] [address] Care Team Providers Care Flanging Operator Name Role Phone Ela Leary MD Primary Care Provider Encounter Details Date Type Department Care Team (Latest Contact Info) Description 06/26/1998 Outpatient Historical [facility] Layo Rose Jr., MD [address] [place] [address] Unspecified pleural effusion (Primary Dx); Obesity, unspecified Social History Tobacco Use Types Packs/Day Years Used Date Smoking Tobacco: Never Assessed Comments Unknown Sex and Gender Information Value Date Recorded Sex Assigned at Not on file Legal Sex Female 3:56 AM MUCKER COFFERDAM Gender Identity Not on file Sexual Orientation Not on file documented as of this encounter Plan of Treatment Not on file documented as of this encounter Visit Diagnoses Diagnosis Unspecified pleural effusion- Primary Obesity, unspecified documented in this encounter Care Teams Flanging Operator Relationship Specialty Start Date End Date Ela Leary MD [address] [place] [address] PCP - General Family Practice 10/26/16 documented as of this encounter
--- OUTSIDE RECORDS SUMMARY | 2024-10-27 07:30 | XMS_ITS | Encounter Summary ---
Author Organization [facility] Address [address] [place] [address] Care Team Providers Care Safe Deposit Attendant Name Role Phone Ela Leary MD Primary Care Provider Encounter Details Date Type Department Care Team (Late st Contact Info) Description 09/06/2003 Outpatient Historical [facility] Cardiology Ancillary Services-[place] [address] [place] [address] Shubham Smyth MD [address] [facility] [address] [place] [address] Mitral valve disorder (Primary Dx) Social History Tobacco Use Types Packs/Day Years Used Date Smoking Tobacco: Never Assessed Comments Unknown Sex and Gender Information Value Date Recorded Sex Assigned at Not on file Legal 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
--- OUTSIDE RECORDS SUMMARY | 2024-10-27 07:30 | XMS_ITS | Encounter Summary ---
Author Organization [facility] Address [address] [place] [address] Care Team Providers Care Key Ringer Name Role Phone Ela Leary MD Primary Care Provider Encounter Details Date Type Department Care Team (Late st Contact Info) Description 10/27/2004 Outpatient Historical [facility] Cardiology Ancillary Services-[place] [address] [place] [address] Shubham Smyth MD [address] [facility] [address] [place] [address] Mitral valve disorder (Primary Dx); BENIGN HYP HRT DIS W/O HRT FAIL Social History Tobacco Use Types Packs/Day Years Used Date Smoking Tobacco: Never Assessed Comments Unknown Sex and Gender Information Value Date Recorded Sex Assigned at Not on file 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
--- OUTSIDE RECORDS SUMMARY | 2024-10-27 07:30 | XMS_ITS | Encounter Summary ---
Author Organization [facility] Address [address] [place] [address] Care Team Providers Care Electrical Solderer Name Role Phone Ela Leray MD Primary Care Provider Encounter Details Date Type Department Care Team (Latest Contact Info) Description 05/10/2000 Outpatient Historical [facility] Cardiology- [place] [address] [place] [address] Mane Prater MD [address] [facility] [address] [place] [address] Benign hypertension (Primary Dx); Mitral stenosis with insufficiency Social History Tobacco Use Types Packs/Day Years Used Date Smoking Tobacco: Never Assessed Comments Unknown Sex and Gender Information Value Date Recorded Sex Assigned at Not on file 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
--- OUTSIDE RECORDS SUMMARY | 2024-10-27 07:30 | XMS_ITS | Encounter Summary ---
Author Organization [facility] Address [address] [place] [address] Care Team Providers Care External Grinder Name Role Phone Ela Leary MD Primary Care Provider Encounter Details Date Type Department Care Team (Latest Contact Info) Description 09/04/1998 Outpatient Historical [facility] Layo Rose Jr., MD [address] [place] [address] Acute and subacute bacterial endocarditis (Primary Dx); Need for prophylactic vaccination against Streptococcus pneumoniae (pneumococcus) Social History Tobacco Use Types Packs/Day Years Used Date Smoking Tobacco: Never Assessed Comments Unknown Sex and Gender Information Value Date Recorded Sex Assigned at Not on file Legal Sex Female 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 Gender Identity Not on file Sexual Orientation Not on file documented as of this encounter Plan of Treatment Not on file documented as of this encounter Visit Diagnoses Diagnosis Acute and subacute bacterial endocarditis- Primary Need for prophylactic vaccination against Streptococcus pneumoniae (pneumococcus) Need for prophylactic vaccination against streptococcus pneumoniae (pneumococcus) documented in this encounter Care Teams External Grinder Relationship Specialty Start Date End Date Ela Leary MD [address] [place] [phone] PCP - General Family Practice 10/26/16 documented as of this encounter
--- OUTSIDE RECORDS SUMMARY | 2024-10-27 07:30 | XMS_ITS | Encounter Summary ---
Author Organization [facility] Address [address] [place] [address] Care Team Providers Care Manager Discovery Name Role Phone Ela Leary MD Primary Care Provider Encounter Details Date Type Department Care Team (Latest Contact Info) Description 09/26/1998 Outpatient Historical [facility] Cardiology- [place] [address] [place] [address] Mane Prater MD [address] [facility] [address] [place] [address] Other primary cardiomyopathies (CMS/HCC) (Primary Dx); Congestive heart failure, unspecified (CMS/HCC); Unspecified essential hypertension; Mitral stenosis with insufficiency Social History Tobacco Use Types Packs/Day Years Used Date Smoking Tobacco: Never Assessed Comments Unknown Sex and Gender Information Value Date Recorded Sex Assigned at Not on file 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 Gender Identity Not on file Sexual Orientation Not on file documented as of this encounter Plan of Treatment Not on file documented as of this encounter Visit Diagnoses Diagnosis Other primary cardiomyopathies (CMS/HCC)- Primary Other primary cardiomyopathies Congestive heart failure, unspecified (CMS/HCC) Congestive heart failure, unspecified Unspecified essential hypertension Mitral stenosis with insufficiency documented in this encounter Care Teams Manager Discovery Relationship Specialty Start Date End Date Ela Leary MD [address] [place] [place] [phone] PCP - General Family Practice 10/26/16 documented as of this encounter
--- OUTSIDE RECORDS SUMMARY | 2024-10-27 07:31 | XMS_ITS | Encounter Summary ---
Author Organization [facility] Address [address] [place] [address] Care Team Providers Care Cullet Trucker Name Role Phone Ela Leary MD Primary Care Provider Encounter Details Date Type Department Care Team (Late st Contact Info) Description 06/01/2002 Outpatient Historical [facility] Cardiology Ancillary Services-[place] [address] [place] [address] Shubham Smyth MD [address] [facility] [address] [place] [address] Mitral valve disorder (Primary Dx) Social History Tobacco Use Types Packs/Day Years Used Date Smoking Tobacco: Never Assessed Comments Unknown Sex and Gender Information Value Date Recorded Sex Assigned at Not on file 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
--- OUTSIDE RECORDS SUMMARY | 2024-10-27 07:31 | XMS_ITS | Clinical Summary ---
Author Organization [facility] [place] Address [address] [place] [address] Care Team Providers Care Sales Correspondence Clerk Name Role Phone Ela Leary MD [...] on file Legal Sex Female 3:56 AM SCRAP PILER Gender Identity Not on file Sexual Orientation Not on file Last Filed Vital Signs Vital Sign Reading Time Taken Comments Blood Pressure 130/68 03/10/2019 10:14 AM SCRAP PILER Pulse 60 03/10/2019 10:14 AM SCRAP PILER Temperature - - Respiratory Rate - - Oxygen Saturation - - Inhaled Oxygen Concentration - - Weight 126.1 kg (278 lb) 03/10/2019 10:14 AM SCRAP PILER Height 149.9 cm (4' 11 ) 03/10/2019 10:14 AM SCRAP PILER Body Mass Index 56.15 03/10/2019 10:14 AM SCRAP PILER Plan of Treatment Health Maintenance Due Date [...] INFLUENZA VACCINE (#1) 2024 Insurance [place] [id number] [facility] DUAL COMPLETE MCR PPO D-SNP Care Teams Sales Correspondence Clerk Relationship Specialty Start Date End Date Ela Leary MD [address] [place] [phone] PCP - General Family Practice 10/26/16
--- OUTSIDE RECORDS SUMMARY | 2024-10-27 07:31 | XMS_ITS | Encounter Summary ---
Author Organization [facility] Address [address] [place] [address] Care Team Providers Care Ebay Reseller Name Role Phone Ela Leary MD Primary Care Provider Encounter Details Date Type Department Care Team (Latest Contact Info) Description 05/22/1998 Outpatient Historical [facility] Layo Rose Jr., MD [address] [place] [address] Unspecified pleural effusion (Primary Dx) Social History Tobacco Use Types Packs/Day Years Used Date Smoking Tobacco: Never Assessed Comments Unknown Sex and Gender Information Value Date Recorded Sex Assigned at Not on file 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
--- OUTSIDE RECORDS SUMMARY | 2024-10-27 07:31 | XMS_ITS | Encounter Summary ---
Author Organization [facility] Address [address] [place] [address] Care Team Providers Care Supervisor Refractory Products Name Role Phone Eal Leary MD Primary Care Provider Encounter Details Date Type Department Care Team (Latest Contact Info) Description 05/10/1998 Outpatient Historical [facility] Layo Rose Jr., MD [address] [place] [address] Abdominal pain, unspecified site (Primary Dx); Other dyspnea and respiratory abnormality Social History Tobacco Use Types Packs/Day Years Used Date Smoking Tobacco: Never Assessed Comments Unknown Sex and Gender Information Value Date Recorded Sex Assigned at Not on file Legal Sex Female 3:56 AM TRANSMITTER ENGINEER Gender Identity Not on file Sexual Orientation Not on file documented as of this encounter Plan of Treatment Not on file documented as of this encounter Visit Diagnoses Diagnosis Abdominal pain, unspecified site- Primary Other dyspnea and respiratory abnormality documented in this encounter Care Teams Supervisor Refractory Products Relationship Specialty Start Date End Date Ela Leary MD [address] [place] [phone] PCP - General Family Practice 10/26/16 documented as of this encounter
--- OUTSIDE RECORDS SUMMARY | 2024-10-27 07:31 | XMS_ITS | Encounter Summary ---
Author Organization [facility] Address [address] [place] [address] Care Team Providers Care Secondary Social Studies Teacher Name Role Phone Ela Leary MD Primary Care Provider Encounter Details Date Type Department Care Team (Latest Contact Info) Description 04/19/1998 Outpatient Historical [facility] Conrad Bowen MD [address] [place] [address] Abdominal pain, unspecified site (Primary Dx); Unspecified asthma(493.90) Social History Tobacco Use Types Packs/Day Years Used Date Smoking Tobacco: Never Assessed Comments Unknown Sex and Gender Information Value Date Recorded Sex Assigned at Not on file 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
--- OUTSIDE RECORDS SUMMARY | 2024-10-27 07:31 | XMS_ITS | Encounter Summary ---
Author Organization [facility] Address [address] [place] [address] Care Team Providers Care Technical Customer Support Specialist Name Role Phone Ela Leary MD Primary Care Provider Encounter Details Date Type Department Care Team (Latest Contact Info) Description 04/26/1998 Outpatient Historical [facility] Conrad Bowen MD [address] [place] [address] Bronchitis, not specified as acute or chronic (Primary Dx); Nonallopathic lesion of thoracic region, not elsewhere classified; Other dyspnea and respiratory abnormality Social History Tobacco Use Types Packs/Day Years Used Date Smoking Tobacco: Never Assessed Comments Unknown Sex and Gender Information Value Date Recorded Sex Assigned at Not on file Legal Sex Female 3:56 AM VISUAL BASIC .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 DEVELOPER Gender Identity Not on file Sexual Orientation Not on file documented as of this encounter Plan of Treatment Not on file documented as of this encounter Visit Diagnoses Diagnosis Bronchitis, not specified as acute or chronic- Primary Nonallopathic lesion of thoracic region, not elsewhere classified Other dyspnea and respiratory abnormality documented in this encounter Care Teams Technical Customer Support Specialist Relationship Specialty Start Date End Date Ela Leary MD [address] [place] [phone] PCP - General Family Practice 10/26/16 documented as of this encounter
[2024-10-27] MEDS: saline nasal spray 44mL Btl 2 SPRAY NASAL ×2 (08:28→19:08)
--- NOTE | 2024-10-27 10:08 | PC.CHAP ---
Pastoral Care Encounter/Spiritual Assessment Type of Contact [] Declined academic affairs dean visit [] Patient/Family/Request visit [] Outpatient visit [] Follow-up visit [] Physician referral [] Code/Alert [x] Routine visit [] Staff referral [] Actively dying [] Patient sleeping [] Family support [] [] Out of room [] Palliative care [] [] Receiving care in room [] Pre-surgical visit [] Trauma [] Long length of stay [] ICU visit [] Other: Relational/Emotional Strength [x] Patient feels connected with others/family/visitors/staff [] Distress [] Loneliness/isolation [] Abandonment Spirituality of Patient [x] Person of Pari [] Attends Alevism of their Pari [x] Believes in Prayer [] Reads Bible or Uatsdin materials [] There are Spiritual issues to be addressed Fiber Heel Piece Shaper Interventions [x] Prayer [x] Active listening [x] Non-anxious presence [x] Spiritual/emotional support [] Crisis/trauma care [] Spiritual counseling [] Bereavement support [] Provided bereavement packet [] Provided Bible/devotional materials [] Provided toy/stuffed animal, coloring book to patient or family member [] Provided Communion [] Anointing/[place] [] Salvation [x] Completed spiritual assessment [] Other: Impact on Illness or Injury [] Angry [] Fearful [] Anxious [] Often cries [] Exhaustion [] Unable to work [] Unable to attend anabaptist [] Unable to walk/stand [] Unable to read [] Unable to drive [] Unable to eat/drink [] Unable to sleep [] Unable to be with family [] Patient intubated [] Other: Summary Time spent with patient 5 min
--- NOTE | 2024-10-27 12:31 | P.PN_ITS ---
Subjective 2 Subjective: She feels she is improving. She has been losing more weight. She has been urinating quite a bit. Edema is improving in her legs and showing improvement in the pannus. Vitals/I&O/Wt Last Vital Signs Temp 97.5 F L 10/27/24 11:36 Pulse 96 10/27/24 11:36 Resp 17 10/27/24 11:36 BP 106/67 10/27/24 11:36 Pulse Ox 94 10/27/24 11:36 O2 Del Method Room Air 10/27/24 11:36 10/26/24 10/27/24 10/27/24 22:59 06:59 14:59 Intake Total 60 / 60 Output Total 1850 / 1850 550 / 2400 1250 / 1250 Balance -1850 / -1850 -550 / -2400 -1190 / -1190 Weight last 48 hrs Weight 120.656 kg Weight 120.656 kg Physical Exam 2 Const: COMMON NORMALS: patient oriented x3 and alert GENERAL APPEARANCE: c ooperative ORIENTATION/CONSCIOUSNESS: Yes awake HENMT: COMMON NORMALS: oropharynx normal Neck/C-Spine: COMMON NORMALS: no JVD Resp: COMMON NORMALS: normal respiratory effort and clear to auscultation bilaterally AUSCULTATION: clear to auscultation bilaterally and diminished lung sounds Cardio: COMMON NORMALS: no JVD, regular rhythm, S1 normal heart sound present, S2 normal heart sound present and No murmurs present (Cardio) RHYTHM: regular rhythm HEART SOUNDS: S1 normal heart sound present and S2 normal heart sound present GI: COMMON NORMALS: Normal to inspection, nondistended, normoactive bowel sounds present, Soft to palpation and non-tender INSPECTION: Yes abdominal distension and Yes other (large pannus with sign edema of lower abdomen) P ALPATION: Yes Soft to palpation Extremity: COMMON NORMALS: no joint enlargement and no pedal edema Neuro: COMMON NORMALS: patient oriented x3 and moves all extremities S ENSORIUM/ORIENTATION: Yes alert Skin: COMMON NORMALS: no rashes or lesions noted NARRATIVE SKIN EXAM: Erythema under pannus and lower portion of pannus GENERAL SKIN EXAM: no rashes or lesions noted Data 10/27/24 03:00 10/27/24 03:00 A&P Assessment and plan 1. Congestive heart failure: Reviewed vitals, intake and output, noted a negative balance. She is diuresing well, responding with improving edema in lower extremities. Show improvement in edema of pannus, but still feeling taut to pressure. Edema still present. Continue IV diuresis. Reassess electrolytes, renal function. Volume status. Echocardiogram reviewed, noted cardiomyopathy with decreased ejection fraction 45%, septal motion abnormality. Discussed with her would benefit from further assessment with stress test. Considering options if she gets ready to discharge over the weekend she would rather come back for stress test early next week as outpatient. Acute diastolic congestive heart failure, but possibly another type, needing further investigation. Symptomatic fluid overload with edema extending to umbilicus, dyspnea/orthopnea; without response to home diuretics, so far with response to IV diuretics. Chest X-ray without acute findings; abdominal wall edema present. Congestive nephropathy with ABDOUL. Improvement in renal function with diuresis. Reviewed CBC, chemistry. Reviewed respiratory viral panel. Reviewed echocardiogram, venous duplex. Discussed with her. Discussed with nursing, case managers. - Continue IV diuresis with furosemide (Lasix) 40 mg IV twice daily (BID) - Monitor intake and output (I&O) closely and reassess volume status - Monitor electrolytes (risk of electrolyte disturbances) - Monitor renal function given risk of worsening ABDOUL with diuresis - Limit total fluid intake to approximately 1 liter per day She declines Booker. 2. ABDOUL (acute kidney injury): Reviewed chemistry, with improving ABDOUL, creatinine at 1.1. BUN 26. Likely responding congestive nephropathy. Possibly due to nephropathy with CHF peripheral edema and anasarca, likely GI edema. No obstructive uropathy noted on review of CT. - Hold trandolapril (MANE inhibitor) - Hold dapagliflozin (Farxiga) - Hold metformin for now - Monitor renal function - Monitor for risk of worsening ABDOUL with diuresis - Check creatine kinase (CK) - Review prior CT abdomen/pelvis for any obstructive uropathy 3. Anasarca: As above. Complicated by intertrigo. Nystatin cream requested. 4. Atrial fibrillation, chronic: Newly identified atrial fibrillation by ED EKG auto-read; patient previously not on anticoagulation beyond aspirin. - Initiate therapeutic anticoagulation with enoxaparin (Lovenox) initially; may transition to apixaban (Eliquis) at discharge - Monitor heart rate with atrial fibrillation - Reviewed echocardiogram as above Plan: Asthma with cough/dyspnea : With mild exacerbation. History of asthma; cough and dyspnea; no wheezes on exam but diminished breath sounds. - Provide nebulizer treatments as needed - Continue inhaled budesonide - Reviewed respiratory viral panel. Intertrigo under abdominal pannus : Painful rash reported under pannus; abdominal wall edema; pannus predisposes to rash. - Start nystatin cream for pannus intertrigo Diabetes mellitus type 2 : History of DM2; medication adjustments due to ABDOUL. - Hold metformin for now (as above) - Hold dapagliflozin (Farxiga) (as above) - Monitor POC glucose, SSI insulin Hypothyroidism : Chronic condition. - Continue levothyroxine Hyperlipidemia : Chronic condition. - Continue statin Hypertension : Chronic condition; current blood pressures allow holding agents. - Hold antihypertensive therapy for now due to blood pressure Morbid obesity with large pannus: Follow-up with primary provider regarding assistance with weight loss options. Additional diagnostics/monitoring : Further evaluation for ischemia and prior imaging review. - Complete cardiac enzyme series to assess for possible ischemia - Review CT abdomen/pelvis from prior visit to assess for ascites and consider paracentesis if ascites is present PDMP PDMP Reviewed: Not Reviewed Attestations 2 Medical Necessity Statement*: Continue admission for assessment and management of acute CHF not responding to outpatient treatment, full ED with ABDOUL, underlying metabolic syndrome and additional comorbidities. and High MDM includes amount and/or complexity of data reviewed/ordered [ resulted lab(s)/test(s), ordered lab(s)/test(s) and other healthcare professional discussion] and described risk of complication, morbidity or mortality of management as documented Diagnoses Congestive heart failure I50.9 Heart failure chronicity: chronic Heart failure type: unspecified ABDOUL (acute kidney injury) N17.9 Anasarca R60.1 Atrial fibrillation, chronic I48.20
[2024-10-27] MEDS: bumetanide 0.25 mg/mL SDV 10 mL 1.5 MG IVP (19:51)
[2024-10-28] VITALS (8 sets, daily range): BP systolic 94–118; BP diastolic 51–84; PULSE 64–88; RESP 15–18; TEMP 36.4–36.8; O2SAT 90–95
[2024-10-28 03:46] LABS: Hematocrit 37.9 % (36-47); Hemoglobin 11.60 g/dL (11.27-16.99); Mean Corpuscular HGB Conc 30.6 g/dL (30-55); Mean Corpuscular Hemoglobin 31.7 pg (27-33); Mean Corpuscular Volume 103.6 fl (85-98); Nucleated Red Blood Cells % 0 %; Platelet Count 147 10^3/cmm (157-399); Red Blood Count 3.66 10^6/uL (3.85-5.65); White Blood Count 5.24 10^3/uL (3.29-11.43)
[2024-10-28 04:11] LABS: Anion Gap 16.6 (5-19); Blood Urea Nitrogen 26 mg/dL (8-23); Calcium 9.3 mg/dL (8.5-10.5); Carbon Dioxide 29 mmol/L (22-29); Chloride 100 mmol/L (98-107); Creatinine Clr Calc Pharmacy 97.1189; Glucose 92 mg/dL (65-115); Osmolality Calculated 298 mOsm/kg (285-295); Potassium 3.6 mmol/L (3.5-5.1); Sodium 142 mmol/L (136-145)
[2024-10-28] MEDS: bumetanide 0.25 mg/mL SDV 10 mL 3 MG IVP (05:41)
[2024-10-28] MEDS: saline nasal spray 44mL Btl 2 SPRAY NASAL ×2 (09:32→17:40)
[2024-10-28 12:01] LABS: Magnesium 1.9 mg/dL (1.7-2.3)
--- NOTE | 2024-10-28 17:07 | P.PN_ITS ---
Subjective 2 Subjective: Patient states that her abdominal pannus is much decreased and firmness and swelling. She thinks her leg swelling has decreased but states she is reluctant to wear hose and cannot wear the pneumatic cuffs. Patient states that on 11-09 she was started on oral diuretics because there was no bed in the hospital. This was not working at home so she became angry and came in on . She states that the IV diuretics have worked wonderfully. She denies chest pain or shortness of breath Vitals/I&O/Wt Last Vital Signs Temp 97.6 F 10/28/24 16:00 Pulse 82 10/28/24 16:00 Resp 15 10/28/24 16:00 BP 94/57 10/28/24 16:00 Pulse Ox 95 10/28/24 16:00 O2 Del Method Room Air 10/28/24 16:00 10/28/24 10/28/24 10/28/24 06:59 14:59 22:59 Intake Total 350 / 770 358 / 358 Output Total 1500 / 1500 Balance 350 / -1530 -1142 / -1142 Weight last 48 hrs Weight 120.656 kg Weight 120.656 kg Physical Exam 2 Narrative: General well-developed morbidly obese female speaking comfortably on the phone CV irregular rhythm frequent ectopy a 4/6 systolic ejection murmur also heard left sternal border and not easy to hear in the left axilla Lungs clear to auscultation bilaterally Abdomen positive bowel tones soft obese there is mild erythema in the dependent pannus without point tenderness or asymmetrical erythema. There is brawny edema over the suprapubic region Calves 2+ edema Data 10/28/24 03:01 10/28/24 03:01 A&P Assessment and plan 1. Congestive heart failure: Weight has not been measured. Will request standing scale weight Patient is 5 L negative balance but the input and output do not appear to be absolutely correct as she is only had 1100 and on 3 days Will change to oral for 24 hours and see if she diuresis. Will adjust her oral Bumex dose. Start potassium 40 mEq twice a day 2. ABDOUL (acute kidney injury): Improved with creatinine down to 1.1 BUN is 26 potassium 3.6 phosphorus 3 magnesium 1.9 Change Bumex to oral at 3 mg twice a day same as her current IV dose. 3. Anasarca: As above. Complicated by intertrigo. Nystatin cream requested. Improved 4. Atrial fibrillation, chronic: Newly identified atrial fibrillation by ED EKG auto-read; patient previously not on anticoagulation beyond aspirin. - She was started on Eliquis 5 mg twice a day - Monitor heart rate with atrial fibrillation - Reviewed echocardiogram as above PDMP PDMP Reviewed: Not Reviewed Attestations 2 Medical Necessity Statement*: Patient remained in the hospital additional midnight for 24 hours on oral diuretics prior to discharge Coding Level of Care Code 37458 Diagnoses Congestive heart failure I50.9 Heart failure chronicity: chronic Heart failure type: unspecified ABDOUL (acute kidney injury) N17.9 Anasarca R60.1 Atrial fibrillation, chronic I48.20 Time Spent (min) 35
[2024-10-29] VITALS: BP 97/62; PULSE 89; RESP 19; TEMP 36.7; O2SAT 90
[2024-10-29 03:58] LABS: Hematocrit 39.2 % (36-47); Hemoglobin 12.10 g/dL (11.27-16.99); Mean Corpuscular HGB Conc 30.9 g/dL (30-55); Mean Corpuscular Hemoglobin 32.2 pg (27-33); Mean Corpuscular Volume 104.3 fl (85-98); Nucleated Red Blood Cells % 0 %; Platelet Count 153 10^3/cmm (157-399); Red Blood Count 3.76 10^6/uL (3.85-5.65); White Blood Count 5.08 10^3/uL (3.29-11.43)
[2024-10-29 04:00] VITALS: BP 87/54; PULSE 81; RESP 18; TEMP 36.5; O2SAT 90
[2024-10-29 04:20] LABS: Magnesium 1.8 mg/dL (1.7-2.3)
[2024-10-29 04:32] LABS: Blood Urea Nitrogen 23 mg/dL (8-23); Calcium 9.3 mg/dL (8.5-10.5); Carbon Dioxide 32 mmol/L (22-29); Chloride 100 mmol/L (98-107); Creatinine Clr Calc Pharmacy 97.1189; Glucose 93 mg/dL (65-115); Osmolality Calculated 299 mOsm/kg (285-295); Sodium 143 mmol/L (136-145)
[2024-10-29 04:40] VITALS: PULSE 100
[2024-10-29 04:45] LABS: Anion Gap 15.2 (5-19); Potassium 4.2 mmol/L (3.5-5.1)
[2024-10-29 07:50] VITALS: PULSE 88; RESP 16; O2SAT 98
[2024-10-29 08:00] VITALS: BP 92/67; PULSE 60; TEMP 36.3; O2SAT 92
[2024-10-29] MEDS: saline nasal spray 44mL Btl 2 SPRAY NASAL (08:58)
[2024-10-29 11:29] VITALS: BP 98/57; PULSE 76; RESP 16; O2SAT 90
[2024-10-29 13:19] LABS: Estmated Average Glucose 117; Hemoglobin A1C 5.7 % (4.0-6.0)
--- NOTE | 2024-10-29 14:46 | P.DS_ITS ---
Discharge Providers Date of Admission: 10/26/24 13:04 Date of Discharge: October 29, 2024 Attending Provider at Admission: Nikunj Hill Attending Provider at Discharge: Don Calixto MD Primary Care Provider: Shanda Menchaca Diagnoses at Discharge Discharge Diagnosis 1. Atrial fibrillation: Details from hospital stay: This is newly diagnosed and patient is treated with Eliquis 5 mg twice a day. Rate is spontaneously controlled and did not require additional treatment. Continue with diuresis and replacement magnesium and potassium 2. ABDOUL (acute kidney injury): Details from hospital stay: creatinine peaked at 1.5 and now stable at 1.1. Bumex decreased to 2 mg twice a day potassium chloride 20 mill colons twice a day and mag oxide 400 mg twice a day. Mini panel and follow-up with nurse practitioner Nikolai in 1 week 3. Anasarca: Details from hospital stay: Improved but patient encouraged despite her reluctance to elevate her abdominal pannus and legs to allow better diuresis 4. Diabetes: Details from hospital stay: Continue metformin. I think the patient is a candidate for GLP-1 agonist if there are no contraindications. Follow-up with your PCP regarding this option 5. Morbid obesity with BMI of 50.0-59.9, adult: Details from hospital stay: Patient states she is 4 foot 11 inches and currently 263 pounds. We discussed stopping orange juice which she drinks 1 glass daily. Additionally I have counseled her to target a weight of less than 200 as the first goal and eat 1200 sariah a day adjusting up or down by 100 sariah daily as needed to effect 2 pounds weight loss per week. I have instructed her to count calories. Counseled patient that this would help decrease fluid retention and heart failure. Patient voiced understanding. Additionally she states she has been told she might have sleep apnea but with her she does not know if she snores heavily at night. Sleep study would be appropriate to test. This is especially true in the setting of RV hypokinesis and atrial fibrillation. Reason for Visit Reason for Visit: CHF 10/17 in pain swelling SOB Coughing Brief History: Chely Katz is a 64 year old congestive heart failure (CHF), hypertension (HTN), hyperlipidemia (HLD), type 2 diabetes mellitus (DM2), hypothyroidism, and asthma. Recently evaluated in the emergency department (ED) on October 17 for abdominal pain and leg swelling; discharged but symptoms progressed. Returns with continued and worsening edema now extending from the legs up to the umbilicus, causing difficulty walking. Reports dyspnea and orthopnea in the ED, as well as cough that began shortly after the 10/17 visit. Took torsemide twice daily at home without relief; notes marked diuresis after receiving intravenous (IV) diuretic in ED, voiding approximately every 20 minutes. Declines urinary catheter placement and prefers to ambulate to the bathroom. Reports a painful rash under the abdominal pannus; not using topical treatments regularly. Denies fever, chills, sore throat, rhinorrhea, nausea, vomiting, diarrhea, hematuria, melena, or chest pain/pressure. Usually able to sleep flat, but has had difficulty due to symptoms. Past cardiac history includes CHF ?several times,? prior angiogram in 2011 showing no obstructive coronary disease and no stent placement. Patient describes having had ?blood clots? years ago and has been taking aspirin; denies any prior stroke. Socially, no tobacco history, no substance use, and only rare alcohol use years ago. ED data: BP 119/68 mmHg, pulse 71 bpm, respiratory rate 19, temperature 97.8 F, SpO2 95% on room air. White blood cell count normal; hemoglobin normal; platelets mildly low at 133. Electrolytes within normal limits (sodium, potassium, chloride, bicarbonate). Blood urea nitrogen (BUN) 27; creatinine 1.5 (acute kidney injury compared to prior: 1.1 on 10/17 and 1.0 in February). Liver panel normal (total bilirubin, AST/ALT, ALP normal). Albumin and globulin normal. Urinalysis with trace leukocytes, trace bacteria, and hyaline casts. Chest X-ray without acute findings. Electrocardiogram (EKG) auto-read with atrial fibrillation, reported as new versus no prior documented history. Hospital Course Hospital Course 64-year-old female admitted with A-fib and congestive heart failure she had been on torsemide 20 mg orally but was not diuresing well. She came in with abdominal wall and lower extremity edema. She was treated with IV Bumex up to 3 mg twice a day with adequate but not excessive diuresis. Her response to diuretics was less than expected. Additional time for diuresis was given and she was switched to oral Bumex 3 mg twice a day. Diuresis did continue and due to the beginnings of contraction alkalosis I decreased the Bumex to 2 mg twice a day. Potassium required aggressive replacement at 40 mg twice a day to offset the Bumex and will be decreased to 20 mg twice a day at time of discharge along with magnesium oxide 400 mg p.o. twice daily. Patient was reluctant to elevate her legs and abdominal pannus to affect diuresis but I have counseled her the last 2 days regarding need for compression hose and leg elevation to promote diuresis without damaging her kidneys. Patient had echocardiogram showing EF 45 to 50% and RV hypokinesis with moderate to severe mitral regurg. Patient should follow-up outpatient with Dr. Quinn Physical Exam Narrative: General well-developed morbidly obese female speaking comfortably on the phone CV irregular rhythm frequent ectopy a 4/6 systolic ejection murmur also heard left sternal border and not easy to hear in the left axilla Lungs clear to auscultation bilaterally Abdomen positive bowel tones soft obese there is mild erythema in the dependent pannus without point tenderness or asymmetrical erythema. There is brawny edema over the suprapubic region Calves 1+ to 2 edema Discharge Data Studies Completed and Pending Completed Studies During Hospitalization Category Date Time Status XR chest 1V portable [id number] Stat Exams 10/26/24 07:59 [place] [id number] Routine Ultrasound 10/26/24 14:05 Completed US echo complete [CV. echo complete* [id number]] Routine Ultrasound 10/26/24 14:05 Completed Radiology Impressions Chest X-Ray 10/26/24 07:59 IMPRESSION: No acute findings. Laboratory Results WBC 5.08 10^3/uL (3.29-11.43) 10/29/24 03:11 RBC 3.76 10^6/uL (3.85-5.65) L 10/29/24 03:11 Hgb 12.10 g/dL (11.27-16.99) 10/29/24 03:11 Hct 39.2 % (36-47) 10/29/24 03:11 MCV 104.3 fl (85-98) H 10/29/24 03:11 MCH 32.2 pg (27-33) 10/29/24 03:11 MCHC 30.9 g/dL (30-55) 10/29/24 03:11 RDW 17.9 % (12.1-15.1) H 10/29/24 03:11 Plt Count 153 10^3/cmm (157-399) L 10/29/24 03:11 MPV 11.4 fL (7.4-10.4) H 10/29/24 03:11 Neut % (Auto) 37.2 % 10/29/24 03:11 Lymph % (Auto) 19.7 % 10/29/24 03:11 [place] % (Auto) 10.0 % 10/29/24 03:11 Eos % (Auto) 31.9 % 10/29/24 03:11 Baso % (Auto) 1.0 % 10/29/24 03:11 Neut # (Auto) 1.89 10^3/uL (1.8-7.7) 10/29/24 03:11 Lymph # (Auto) 1.0 10^3/uL (0.8-4.8) 10/29/24 03:11 [place] # (Auto) 0.5 10^3/uL (0.2-0.9) 10/29/24 03:11 Eos # (Auto) 1.6 10^3/uL (0.0-0.8) H 10/29/24 03:11 Baso # (Auto) 0.1 10^3/uL (0.0-0.1) 10/29/24 03:11 Nucleated RBC % (auto) 0 % 10/29/24 03:11 Nucleated RBCs # 0.0 /100WBC 10/29/24 03:11 D-Dimer 0.70 ug/mLFEU (0-0.59) H 10/28/24 11:16 Sodium 143 mmol/L (136-145) 10/29/24 03:11 Potassium 4.2 mmol/L (3.5-5.1) 10/29/24 03:11 Chloride 100 mmol/L (98-107) 10/29/24 03:11 Carbon Dioxide 32 mmol/L (22-29) H 10/29/24 03:11 Anion Gap 15.2 (5-19) 10/29/24 03:11 BUN 23 mg/dL (8-23) 10/29/24 03:11 Creatinine 1.1 mg/dL (0.5-0.9) H 10/29/24 03:11 GFR Calculation 49.8 mL/min (90-130) L 10/29/24 03:11 Glucose 93 mg/dL (65-115) 10/29/24 03:11 POC Glucose 98 mg/dL (70-110) 10/29/24 11:08 Estimat Average Glucose 117 10/29/24 03:11 Hemoglobin A1c 5.7 % (4.0-6.0) 10/29/24 03:11 Calculated Osmolality 299 mOsm/kg (285-295) H 10/29/24 03:11 Calcium 9.3 mg/dL (8.5-10.5) 10/29/24 03:11 Phosphorus 3.0 mg/dL (2.5-4.5) 10/28/24 11:16 Magnesium 1.8 mg/dL (1.7-2.3) 10/29/24 03:11 Total Bilirubin 0.4 mg/dL (0.15-1.2) 10/26/24 08:20 AST 11 U/L (0-32) 10/26/24 08:20 ALT < 5 U/L (0-33) 10/26/24 08:20 Alkaline Phosphatase 71 U/L (35-105) 10/26/24 08:20 Creatine Kinase 35 U/L (26-192) 10/26/24 08:20 Total Protein 7.1 g/dL (6.6-8.7) 10/26/24 08:20 Albumin 3.8 g/dL (3.5-5.2) 10/26/24 08:20 Globulin 3.3 g/dL (1.3-4.6) 10/26/24 08:20 Urine Color Yellow (Yellow) 10/26/24 08:45 Urine Appearance Clear (CLEAR) 10/26/24 08:45 Urine pH 5.5 (5-7) 10/26/24 08:45 Ur Specific [place] 1.034 (1.005-1.030) H 10/26/24 08:45 Urine Protein 1+ (Negative) A 10/26/24 08:45 Urine Glucose (UA) 3+ (Normal) H 10/26/24 08:45 Urine Ketones Trace (Negative) 10/26/24 08:45 Urine Blood Negative (Negative) 10/26/24 08:45 Urine Nitrate Negative (Negative) 10/26/24 08:45 Urine Bilirubin Negative (Negative) 10/26/24 08:45 Urine Urobilinogen 1.0 mg/dL (Negative) 10/26/24 08:45 Ur Leukocyte Esterase Trace (Negative) A 10/26/24 08:45 Urine RBC 0-2 /hpf (0-2) 10/26/24 08:45 Urine WBC 0-5 /hpf (0-5) 10/26/24 08:45 Ur Squamous Epith Cells 6-10 /hpf (0-5) 10/26/24 08:45 Amorphous Sediment Not Reportable 10/26/24 08:45 Urine Bacteria Trace /hpf (NONE) 10/26/24 08:45 Hyaline Casts 7.85 /lpf 10/26/24 08:45 Adenovirus (PCR) Not detected (NOT DETECT) 10/26/24 14:25 C. pneumoniae DNA (PCR) Not detected (NOT DETECT) 10/26/24 14:25 Coronavirus 229E (PCR) Not detected (NOT DETECT) 10/26/24 14:25 Human Metapneumovir PCR Not detected (NOT DETECT) 10/26/24 14:25 Influenza A (H1) PCR Not detected (NOT DETECT) 10/26/24 14:25 Influ A (H1/09) PCR Not detected (NOT DETECT) 10/26/24 14:25 Influenza A (H3) PCR Not detected (NOT DETECT) 10/26/24 14:25 Influenza Type A (PCR) Not detected (NOT DETECT) 10/26/24 14:25 Influenza Type B (PCR) Not detected (NOT DETECT) 10/26/24 14:25 M. pneumoniae (PCR) Not detected (NOT DETECT) 10/26/24 14:25 Parainfluenza 1 (PCR) Not detected (NOT DETECT) 10/26/24 14:25 Parainfluenza 2 (PCR) Not detected (NOT DETECT) 10/26/24 14:25 Parainfluenza 3 (PCR) Not detected (NOT DETECT) 10/26/24 14:25 Parainfluenza 4 (PCR) Not detected (NOT DETECT) 10/26/24 14:25 RSV Type A (PCR) Not detected (NOT DETECT) 10/26/24 14:25 RSV Type B (PCR) Not detected (NOT DETECT) 10/26/24 14:25 Entero/Rhino (PCR) Not detected (NOT DETECT) 10/26/24 14:25 SARS-CoV-2 (PCR) Not detected (NOT DETECT) 10/26/24 14:25 Vitals Last Vital Signs Temp 97.3 F L 10/29/24 08:00 Pulse 76 10/29/24 11:29 Resp 16 10/29/24 11:29 BP 98/57 10/29/24 11:29 Pulse Ox 90 10/29/24 11:29 O2 Del Method Room Air 10/29/24 11:29 Discharge Plan Discharge Patient Disposition: Home Condition: Stable Prescriptions: New potassium chloride [Klor-Con M20] 20 mEq Tablet,Er Particles/Crystals 20 meq PO BID@0500,1700 Qty: 60 0RF Eliquis 5 mg Tablet 5 mg PO BID@0500,1700 Qty: 60 0RF bumetanide 1 mg Tablet 2 mg PO BID@0500,1700 Qty: 60 0RF magnesium oxide 400 mg magnesium tablet 400 mg PO BID Qty: 60 0RF Continued azelastine 137 mcg (0.1 %) aerosol,spray 2 spray intranasal BID Qty: 30 2RF Rx Instructions: administer into each nostril montelukast 10 mg tablet 10 mg PO BEDTIME carvedilol 6.25 mg tablet 6.25 mg PO BID simvastatin 10 mg tablet 5 mg PO BEDTIME metformin 500 mg tablet 500 mg PO DAILY allopurinol 100 mg tablet 200 mg PO DAILY albuterol sulfate [Ventolin HFA] 90 mcg/actuation HFA aerosol inhaler 2 inh inhalation Q4H PRN (Reason: shortness of breath or wheezing) Qty: 8.5 0RF albuterol sulfate 2.5 mg /3 mL (0.083 %) solution for nebulization 2.5 mg inhalation Q6H PRN (Reason: Shortness Of Breath) aspirin [Aspir-81] 81 mg Tablet,Delayed Release (Dr/Ec) 81 mg PO DAILY levothyroxine 88 mcg tablet 88 mcg PO QAM omeprazole 20 mg capsule,delayed release(DR/EC) 20 mg PO DAILY acetaminophen 500 mg Tablet 500 mg PO Q6H PRN (Reason: Pain) dapagliflozin propanediol [Farxiga] 10 mg tablet 10 mg PO DAILY Discontinued trandolapril 4 mg tablet 4 mg PO DAILY torsemide 20 mg tablet 20 mg PO DAILY Other Ambulatory Orders: Basic Metabolic Panel (Routine) Timeframe: 1 Week Facility: [facility] - Location: Lab - Main Lab Ordered By: Don Calixto Magnesium (Routine) Timeframe: 1 Week Facility: [facility] - Location: Lab - Main Lab Ordered By: Don Calixto Referrals: Shanda Menchaca FNP [Primary Care Provider, Nurse Practitioner] - 1 week Referral Note: Please call your primary care provider Wednesday for the need of a hospital discharge follow up in 4-7 days. Problems: Congestive heart failure; ABDOUL (acute kidney injury) Flako Quinn MD [Physician, Cardiology] - 2 weeks Referral Note: A-fib and abnormal echo Problems: Congestive heart failure Discharge Diet: Diabetic Discharge Activity: Increase activity as tolerated Patient Instructions: Heart Failure (GEN), A-fib (Atrial Fibrillation) (GEN), Weight Management (GEN), Opioid Safety, Patient Portal & Jack Instructions Activity Restrictions/Additional Instructions: You were admitted with atrial fibrillation and congestive heart failure. Due to the atrial fibrillation you were started on apixaban anticoagulation to prevent strokes. The fluid overload from congestive heart failure was treated with IV Bumex because of the failure of torsemide orally to effectively diurese fluid. I have switched you to oral Bumex which continues to work well but decrease the dose to 2 mg twice a day. This should be matched with the potassium chloride 20 mill equivalents twice a day and magnesium oxide 400 mg twice a day. The latter 2 are to replace potassium and magnesium loss from diuretics. All of this should be followed up with your primary care physician with a mini panel lab and potassium drawn prior to that visit in a week. Follow-up with your primary care provider Nikolai and with Dr. Quinn in 1 and 2 weeks respectively. Please wear your hose daily to alleviate leg swelling and make it easier for your kidneys to remove excess fluid. Please elevate your legs higher than heart and elevate abdominal swelling to promote diuresis. Weigh yourself on arrival home and then daily. I anticipate that you will lose 5 pounds of fluid in the next 2 to 3 days. If you are gaining more than 5 pounds or losing more than 10 pounds fluid please call your physician and have your medications adjusted Additionally for diabetes and obesity you should try to eat 1200 sariah or less daily adjusting 100 sariah up or down per day to effect 2 pounds weight loss per we ek. Avoid juices and other caloric drinks. Avoid concentrated calories and sugared carbohydrates. Discharge Attestations Time Spent in Discharge Care*: greater than 30 min Time Spent in Smoking Cessation: Patient is not a smoker Quality Metrics Clinical Quality Measures [ No reported AMI, CVA or VTE this stay] Coding Level of Care Code Acute Code for [facility] Fwd Diagnoses Atrial fibrillation I48.91 ABDOUL (acute kidney injury) N17.9 Anasarca R60.1 Diabetes E11.9 Morbid obesity with BMI of 50.0-59.9, adult E66.01; Z68.43 Time Spent (min) 45
--- NOTE | 2024-10-29 16:17 | PC.NURSE ---
pt and family educ abt d/c and pts meds. pt has 4 new meds and [facility]. educ pt and family of this.
== END 2024-10-29 16:15 | disposition home or self-care (01) | DRG 291 ==
LOC: ER 11:05 → MEDSURG 13:38 → ER IP 10-27 07:22
PROVIDERS: Admitting Provider Internal Medicine; Emergency Provider Family Medicine; PCP Nurse Practitioner Family; Visit Provider Internal Medicine
DX: I11.0 Hypertensive heart disease with heart failure (principal); I50.31 Acute diastolic (congestive) heart failure; I48.20 Chronic atrial fibrillation, unspecified; N17.9 Acute kidney failure, unspecified; Z68.43 Body mass index [BMI] 50.0-59.9, adult; J45.901 Unspecified asthma with (acute) exacerbation; E87.3 Alkalosis; E11.9 Type 2 diabetes mellitus without complications; E66.01 Morbid (severe) obesity due to excess calories; E78.5 Hyperlipidemia, unspecified; E03.9 Hypothyroidism, unspecified; L30.4 Erythema intertrigo; E88.810 Metabolic syndrome; Z79.01 Long term (current) use of anticoagulants; Z79.82 Long term (current) use of aspirin
CPT/HCPCS: 36415; 36416; 71045; 80048; 80053; 81001; 82550; 82962; 83036; 83735; 84100; 85025; 85378; 87486; 87581; 87633; 93005; 93306; 93970; 96372; J1650; J3490; J9999

== ENCOUNTER 2024-11-07 17:57 | Emergency (ER) | payer MEDICARE, SELFPAY ==
[2024-11-07 18:03] VITALS: BP 93/58; PULSE 76; RESP 16; TEMP 36.7; O2SAT 93; BMI 50.8
--- OUTSIDE RECORDS SUMMARY | 2024-11-07 18:05 | XMS_ITS | Encounter Summary ---
Author Organization [facility] Address [address] [place] [address] Care Team Providers Care Litigation Examiner Name Role Phone Ela Leary MD Primary Care Provider Encounter Details Date Type Department Care Team (Late st Contact Info) Description 09/06/2003 Outpatient Historical [facility] Cardiology- [place] [address] [place] [address] Mane Prater MD [address] [facility] [address] [place] [address] BENIGN HYP HRT DIS W/O HRT FAIL (Primary Dx); MITR/AORTIC MULT INVOLV Social History Tobacco Use Types Packs/Day Years Used Date Smoking Tobacco: Never Assessed Comments Unknown Sex and Gender Information Value Date Recorded Sex Assigned at Not on file 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
--- OUTSIDE RECORDS SUMMARY | 2024-11-07 18:05 | XMS_ITS | Encounter Summary ---
Author Organization [facility] Address [address] [place] [address] Care Team Providers Care Program Lead Name Role Phone Ela Leary MD Primary Care Provider Encounter Details Date Type Department Care Team (Late st Contact Info) Description 10/27/2004 Outpatient Historical [facility] Cardiology Ancillary Services-[place] [address] [place] [address] Shubham Smyth MD [address] [facility] [address] [place] [address] Mitral valve disorder (Primary Dx); BENIGN HYP HRT DIS W/O HRT FAIL Social History Tobacco Use Types Packs/Day Years Used Date Smoking Tobacco: Never Assessed Comments Unknown Sex and Gender Information Value Date Recorded Sex Assigned at Not on file 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
--- OUTSIDE RECORDS SUMMARY | 2024-11-07 18:05 | XMS_ITS | Encounter Summary ---
Author Organization [facility] Address [address] [place] [address] Care Team Providers Care Senior Quantity Surveyor Name Role Phone Ela Leary MD Primary Care Provider Encounter Details Date Type Department Care Team (Late st Contact Info) Description 09/06/2003 Outpatient Historical [facility] Cardiology Ancillary Services-[place] [address] [place] [address] Shubham Smyth MD [address] [facility] [address] [place] [address] Mitral valve disorder (Primary Dx) Social History Tobacco Use Types Packs/Day Years Used Date Smoking Tobacco: Never Assessed Comments Unknown Sex and Gender Information Value Date Recorded Sex Assigned at Not on file 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
--- OUTSIDE RECORDS SUMMARY | 2024-11-07 18:05 | XMS_ITS | Encounter Summary ---
Author Organization [facility] Address [address] [place] [address] Care Team Providers Care Infantry Officer Name Role Phone Ela Leary MD Primary Care Provider Encounter Details Date Type Department Care Team (Latest Contact Info) Description 01/25/2006 Outpatient [facility] Cardiology Ancillary Services-[place] [address] [place] [address] Alex Manzanares MD NO ADDRESS ON FILE Rheumatic Mitral Insufficiency (Primary Dx); Ventricular Sept Defect Social History Tobacco Use Types Packs/Day Years Used Date Smoking Tobacco: Never Assessed Comments Unknown Sex and Gender Information Value Date Recorded Sex Assigned at Not on file 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
--- OUTSIDE RECORDS SUMMARY | 2024-11-07 18:05 | XMS_ITS | Encounter Summary ---
Author Organization [facility] Address [address] [place] [address] Care Team Providers Care Unit Control Clerk Name Role Phone Ela Leary MD Primary Care Provider Encounter Details Date Type Department Care Team (Late st Contact Info) Description 10/27/2004 Outpatient Historical [facility] Cardiology- [place] [address] [place] [address] Mane Prater MD [address] [facility] [address] [place] [address] RHEUMATIC MITRAL INSUFF (Primary Dx); BENIGN HYP HRT DIS W/O HRT FAIL Social History Tobacco Use Types Packs/Day Years Used Date Smoking Tobacco: Never Assessed Comments Unknown Sex and Gender Information Value Date Recorded Sex Assigned at Not on file Legal Sex Female 3:56 AM MANAGER SUPPORT Gender Identity Not on file Sexual Orientation Not on file documented as of this encounter Plan of Treatment Not on file documented as of this encounter Visit Diagnoses Diagnosis Rheumatic mitral insufficiency- Primary Benign hypertensive heart disease without heart failure documented in this encounter Care Teams Unit Control Clerk Relationship Specialty Start Date End Date Ela Leary MD [address] [place] [phone] PCP - General Family Practice 10/26/16 documented as of this encounter
--- OUTSIDE RECORDS SUMMARY | 2024-11-07 18:05 | XMS_ITS | Encounter Summary ---
Author Organization [facility] Address [address] [place] [address] Care Team Providers Care Order Desk Caller Name Role Phone Ela Leary MD Primary Care Provider Encounter Details Date Type Department Care Team (Late st Contact Info) Description 06/01/2002 Outpatient Historical [facility] Cardiology- [place] [address] [place] [address] Mane Prater MD [address] [facility] [address] [place] [address] RHEUMATIC MITRAL INSUFF (Primary Dx) Social History Tobacco Use Types Packs/Day Years Used Date Smoking Tobacco: Never Assessed Comments Unknown Sex and Gender Information Value Date Recorded Sex Assigned at Not on file Legal Sex Female 3:56 AM ACCOUNTS RECEIVABLE ACCOUNTANT Gender Identity Not on file Sexual Orientation Not on file documented as of this encounter Plan of Treatment Not on file documented as of this encounter Visit Diagnoses Diagnosis Rheumatic mitral insufficiency- Primary documented in this encounter Care Teams Order Desk Caller Relationship Specialty Start Date End Date Ela Leary MD [address] [place] [phone] PCP - General Family Practice 10/26/16 documented as of this encounter
--- OUTSIDE RECORDS SUMMARY | 2024-11-07 18:05 | XMS_ITS | Encounter Summary ---
Author Organization [facility] Address [address] [place] [address] Care Team Providers Care Food Chemist Name Role Phone Ela Leary MD Primary Care Provider Encounter Details Date Type Department Care Team (Late st Contact Info) Description 07/03/2009 Ancillary Orders [facility] Cardiology- [place] [address] [facility] [address] [place] [address] Mane Prater MD [address] [facility] [address] [place] [address] Mitral Valve Disorders Social History Tobacco Use Types Packs/Day Years Used Date Smoking Tobacco: Never Alcohol Use Standard Drinks/Week Comments Not Asked 0 (1 standard drink = 0.6 oz pur e alcohol) Comments Unknown Sex and Gender Information Value Date Recorded Sex Assigned at Not on file Legal Sex Female 3:56 AM WEB SOFTWARE ENGINEER Gender Identity Not on file Sexual Orientation Not on file documented as of this encounter Plan of Treatment Not on file documented as of this encounter Results * ECHO COMPLETE (07/03/2009 1:13 PM CDT) 07/03/2009 11:5 3 AM CDT Narrative INTERFACE SYSTEM - 07/03/2009 3:10 PM CDT [facility] - Cardiology [address] [facility] [address] [place] [address] Transthoracic Echocardiography Patient: Chely Katz Study ID: ECHOCARDIOGRAM C Gender: F : 1960 Age: 49 Location: Room: Height: 149.9cm Study Date: 07/03/2009 Patient status: P Weight: 121.6kg Study Time: 11:53 AM BSA: 2.09m^2 *Ordering:Mane SequeiraInterpreting:*Hector DenisRecruiting Specialist:Jossy Robles Diagnoses supporting medical necessity: Mitral [...] (*) weaver values outside specified normal range. [facility] is accredited with the Intersocietal Commission for the Accreditation of Echocardiography Laboratories (ICAEL) Prepared and Electronically Authenticated Hector Denis [id number] Procedure Note Nik Denis MD - 07/03/2009 [facility] - Cardiology [address] [facility] [address] [place] [address] Transthoracic Echocardiography Patient: Chely Katz Study ID: ECHOCARDIOGRAM C Gender: F : 1960 Age: 49 Location: Room: Height: 149.9cm Study Date: 07/03/2009 Patient status: P Weight: 121.6kg Study Time: 11:53 AM BSA: 2.09m^2 *Ordering:* Mane Prater *Interpreting:*Hector Denis *Recruiting Specialist:Jossy Robles Diagnoses supporting medical necessity: Mitral [...] (*) weaver values outside specified normal range. [facility] is accredited with the Intersocietal Commission for the Accreditation of Echocardiography Laboratories (ICAEL) Prepared and Electronically Authenticated Hector Denis [id number] us Mane Prater MD ORDERABLES Final Result INTERFACE SYSTEM Refer to clinic/hospital department documented in this encounter Visit Diagnoses Diagnosis Mitral valve disorders(424.0) Mitral valve disorders documented in this encounter Care Teams Food Chemist Relationship Specialty Start Date End Date Ela Leary MD [address] [place] [phone] PCP - General Family Practice 10/26/16 documented as of this encounter
--- OUTSIDE RECORDS SUMMARY | 2024-11-07 18:05 | XMS_ITS | Encounter Summary ---
Author Organization [facility] Address [address] [place] [address] Care Team Providers Care Automobile Repossessor Name Role Phone Ela Leary MD Primary Care Provider Encounter Details Date Type Department Care Team (Latest Contact Info) Description 01/25/2006 Outpatient Historical [facility] Cardiology- [place] [address] [place] [address] Amado Li, [facility] [address] [facility] [address] [place] [address] Unspecified Hypertensive Heart Disease without Heart Failure (Primary Dx); Rheumatic Mitral Insufficiency Social History Tobacco Use Types Packs/Day Years Used Date Smoking Tobacco: Never Assessed Comments Unknown Sex and Gender Information Value Date Recorded Sex Assigned at Not on file Legal Sex Female 3:56 AM DERRICK BUILDER Gender Identity Not on file Sexual Orientation Not on file documented as of this encounter Plan of Treatment Not on file documented as of this encounter Visit Diagnoses Diagnosis Unspecified hypertensive heart disease without heart failure- Primary Rheumatic mitral insufficiency documented in this encounter Care Teams Automobile Repossessor Relationship Specialty Start Date End Date Ela Leary MD [address] [place] [phone] PCP - General Family Practice 10/26/16 documented as of this encounter
--- OUTSIDE RECORDS SUMMARY | 2024-11-07 18:06 | XMS_ITS | Encounter Summary ---
Author Organization [facility] Address [address] [place] [address] Care Team Providers Care Desk Pens Assembler Name Role Phone Ela Leary MD Primary Care Provider Encounter Details Date Type Department Care Team (Latest Contact Info) Description 05/10/2000 Outpatient Historical [facility] Cardiology- [place] [address] [place] [address] Mane Prater MD [address] [facility] [address] [place] [address] Benign hypertension (Primary Dx); Mitral stenosis with insufficiency Social History Tobacco Use Types Packs/Day Years Used Date Smoking Tobacco: Never Assessed Comments Unknown Sex and Gender Information Value Date Recorded Sex Assigned at Not on file Legal Sex Female 3:56 AM BEEF SKINNER Gender Identity Not on file Sexual Orientation Not on file documented as of this encounter Plan of Treatment Not on file documented as of this encounter Visit Diagnoses Diagnosis Benign hypertension- Primary Essential hypertension, benign Mitral stenosis with insufficiency documented in this encounter Care Teams Desk Pens Assembler Relationship Specialty Start Date End Date Ela Leary MD [address] [place] [phone] PCP - General Family Practice 10/26/16 documented as of this encounter
--- OUTSIDE RECORDS SUMMARY | 2024-11-07 18:06 | XMS_ITS | Encounter Summary ---
Author Organization [facility] Address [address] [place] [address] Care Team Providers Care Pullman Conductor Name Role Phone Ela Leary MD Primary Care Provider Encounter Details Date Type Department Care Team (Latest Contact Info) Description 09/04/1998 Outpatient Historical [facility] Layo Rose Jr., MD [address] [place] [address] Acute and subacute bacterial endocarditis (Primary Dx); Need for prophylactic vaccination against Streptococcus pneumoniae (pneumococcus) Social History Tobacco Use Types Packs/Day Years Used Date Smoking Tobacco: Never Assessed Comments Unknown Sex and Gender Information Value Date Recorded Sex Assigned at Not on file Legal Sex Female 3:56 AM SHAKE SPLITTER Gender Identity Not on file Sexual Orientation Not on file documented as of this encounter Plan of Treatment Not on file documented as of this encounter Visit Diagnoses Diagnosis Acute and subacute bacterial endocarditis- Primary Need for prophylactic vaccination against Streptococcus pneumoniae (pneumococcus) Need for prophylactic vaccination against streptococcus pneumoniae (pneumococcus) documented in this encounter Care Teams Pullman Conductor Relationship Specialty Start Date End Date Ela Leary MD [address] [place] [phone] PCP - General Family Practice 10/26/16 documented as of this encounter
--- OUTSIDE RECORDS SUMMARY | 2024-11-07 18:06 | XMS_ITS | Encounter Summary ---
Author Organization [facility] Address [address] [place] [address] Care Team Providers Care Knot Bumper Name Role Phone Ela Leary MD Primary Care Provider Encounter Details Date Type Department Care Team (Latest Contact Info) Description 05/10/1998 Outpatient Historical [facility] Layo Rose Jr., MD [address] [place] [address] Abdominal pain, unspecified site (Primary Dx); Other dyspnea and respiratory abnormality Social History Tobacco Use Types Packs/Day Years Used Date Smoking Tobacco: Never Assessed Comments Unknown Sex and Gender Information Value Date Recorded Sex Assigned at Not on file Legal Sex Female 3:56 AM APPLICATION SPECIALIST Gender Identity Not on file Sexual Orientation Not on file documented as of this encounter Plan of Treatment Not on file documented as of this encounter Visit Diagnoses Diagnosis Abdominal pain, unspecified site- Primary Other dyspnea and respiratory abnormality documented in this encounter Care Teams Knot Bumper Relationship Specialty Start Date End Date Ela Leary MD [address] [place] [phone] PCP - General Family Practice 10/26/16 documented as of this encounter
--- OUTSIDE RECORDS SUMMARY | 2024-11-07 18:06 | XMS_ITS | Encounter Summary ---
Author Organization [facility] Address [address] [place] [address] Care Team Providers Care Flame Degreaser Name Role Phone Ela Leary MD Primary Care Provider Encounter Details Date Type Department Care Team (Latest Contact Info) Description 04/26/1998 Outpatient Historical [facility] Conrad Bowen MD [address] [place] [address] Bronchitis, not specified as acute or chronic (Primary Dx); Nonallopathic lesion of thoracic region, not elsewhere classified; Other dyspnea and respiratory abnormality Social History Tobacco Use Types Packs/Day Years Used Date Smoking Tobacco: Never Assessed Comments Unknown Sex and Gender Information Value Date Recorded Sex Assigned at Not on file Legal Sex Female 3:56 AM SYSTEMS PROTECTION TECHNICIAN Gender Identity Not on file Sexual Orientation Not on file documented as of this encounter Plan of Treatment Not on file documented as of this encounter Visit Diagnoses Diagnosis Bronchitis, not specified as acute or chronic- Primary Nonallopathic lesion of thoracic region, not elsewhere classified Other dyspnea and respiratory abnormality documented in this encounter Care Teams Flame Degreaser Relationship Specialty Start Date End Date Ela Leary MD [address] [place] [phone] PCP - General Family Practice 10/26/16 documented as of this encounter
--- OUTSIDE RECORDS SUMMARY | 2024-11-07 18:06 | XMS_ITS | Encounter Summary ---
Author Organization [facility] Address [address] [place] [address] Care Team Providers Care Special Forces Medical Sergeant Name Role Phone Ela Leary MD Primary Care Provider Encounter Details Date Type Department Care Team (Latest Contact Info) Description 04/19/1998 Outpatient Historical [facility] Conrad Bowen MD [address] [place] [address] Abdominal pain, unspecified site (Primary Dx); Unspecified asthma(493.90) Social History Tobacco Use Types Packs/Day Years Used Date Smoking Tobacco: Never Assessed Comments Unknown Sex and Gender Information Value Date Recorded Sex Assigned at Not on file Legal Sex Female 3:56 AM SPUD DRILLER Gender Identity Not on file Sexual Orientation Not on file documented as of this encounter Plan of Treatment Not on file documented as of this encounter Visit Diagnoses Diagnosis Abdominal pain, unspecified site- Primary Unspecified asthma(493.90) Unspecified asthma documented in this encounter Care Teams Special Forces Medical Sergeant Relationship Specialty Start Date End Date Ela Leary MD [address] [place] [phone] PCP - General Family Practice 10/26/16 documented as of this encounter
--- OUTSIDE RECORDS SUMMARY | 2024-11-07 18:06 | XMS_ITS | Encounter Summary ---
Author Organization [facility] Address [address] [place] [address] Care Team Providers Care Handbook Writer Name Role Phone Ela Leary MD Primary Care Provider Encounter Details Date Type Department Care Team (Late st Contact Info) Description 11/01/2024 External Device Data [facility] ABSTRACTION Provider, Abstract NO ADDRESS ON FILE Social History Tobacco Use Types Packs/Day Years Used Date Smoking Tobacco: Never Smokeless Tobacco: Never Alcohol Use Standard Drinks/Week Comments No 0 (1 standard drink = 0.6 oz pur e alcohol) Comments Unknown Sex and Gender Information Value Date Recorded Sex Assigned at Not on file Legal Sex Female 3:49 AM TEACHER PHYSICALLY IMPAIRED Gender Identity Not on file Sexual Orientation Not on file documented as of this encounter Plan of Treatment Not on file documented as of this encounter Visit Diagnoses Not on filedocumented in this encounter Care Teams Handbook Writer Relationship Specialty Start Date End Date Ela Leary MD [address] [place] [phone] PCP - General Family Practice 10/26/16 documented as of this encounter
--- OUTSIDE RECORDS SUMMARY | 2024-11-07 18:06 | XMS_ITS | Encounter Summary ---
Author Organization [facility] Address [address] [place] [address] Care Team Providers Care Supervisor Motorcycle Repair Shop Name Role Phone Ela Leary MD Primary Care Provider Encounter Details Date Type Department Care Team (Latest Contact Info) Description 09/26/1998 Outpatient Historical [facility] Cardiology- [place] [address] [place] [address] Mane Prater MD [address] [facility] [address] [place] [address] Other primary cardiomyopathies (CMS/HCC) (Primary Dx); Congestive heart failure, unspecified (CMS/HCC); Unspecified essential hypertension; Mitral stenosis with insufficiency Social History Tobacco Use Types Packs/Day Years Used Date Smoking Tobacco: Never Assessed Comments Unknown Sex and Gender Information Value Date Recorded Sex Assigned at Not on file Legal Sex Female 3:56 AM MODELING ANALYST Gender Identity Not on file Sexual Orientation Not on file documented as of this encounter Plan of Treatment Not on file documented as of this encounter Visit Diagnoses Diagnosis Other primary cardiomyopathies (CMS/HCC)- Primary Other primary cardiomyopathies Congestive heart failure, unspecified (CMS/HCC) Congestive heart failure, unspecified Unspecified essential hypertension Mitral stenosis with insufficiency documented in this encounter Care Teams Supervisor Motorcycle Repair Shop Relationship Specialty Start Date End Date Ela Leary MD [address] [place] [phone] PCP - General Family Practice 10/26/16 documented as of this encounter
--- OUTSIDE RECORDS SUMMARY | 2024-11-07 18:06 | XMS_ITS | Encounter Summary ---
Author Organization [facility] Address [address] [place] [address] Care Team Providers Care Offender Job Retention Specialist Name Role Phone Ela Leary MD Primary Care Provider Encounter Details Date Type Department Care Team (Late st Contact Info) Description 10/31/2024 External Device Data [facility] ABSTRACTION Provider, Abstract NO ADDRESS ON FILE Social History Tobacco Use Types Packs/Day Years Used Date Smoking Tobacco: Never Smokeless Tobacco: Never Alcohol Use Standard Drinks/Week Comments No 0 (1 standard drink = 0.6 oz pur e alcohol) Comments Unknown Sex and Gender Information Value Date Recorded Sex Assigned at Not on file Legal Sex Female 3:49 AM MANAGER COMMERCIAL REAL ESTATE Gender Identity Not on file Sexual Orientation Not on file documented as of this encounter Plan of Treatment Not on file documented as of this encounter Visit Diagnoses Not on filedocumented in this encounter Care Teams Offender Job Retention Specialist Relationship Specialty Start Date End Date Ela Leary MD [address] [place] [address] [place] [phone] PCP - General Family Practice 10/26/16 documented as of this encounter
--- OUTSIDE RECORDS SUMMARY | 2024-11-07 18:06 | XMS_ITS | Encounter Summary ---
Author Organization [facility] Address [address] [place] [address] Care Team Providers Care Axminster Weaver Name Role Phone Ela Leary MD Primary Care Provider Encounter Details Date Type Department Care Team (Latest Contact Info) Description 06/26/1998 Outpatient Historical [facility] Layo Rose Jr., MD [address] [place] [address] Unspecified pleural effusion (Primary Dx); Obesity, unspecified Social History Tobacco Use Types Packs/Day Years Used Date Smoking Tobacco: Never Assessed Comments Unknown Sex and Gender Information Value Date Recorded Sex Assigned at Not on file Legal Sex Female 3:56 AM OPERATIONAL ASSISTANT Gender Identity Not on file Sexual Orientation Not on file documented as of this encounter Plan of Treatment Not on file documented as of this encounter Visit Diagnoses Diagnosis Unspecified pleural effusion- Primary Obesity, unspecified documented in this encounter Care Teams Axminster Weaver Relationship Specialty Start Date End Date Ela Leary MD [address] [place] [phone] PCP - General Family Practice 10/26/16 documented as of this encounter
--- OUTSIDE RECORDS SUMMARY | 2024-11-07 18:06 | XMS_ITS | Encounter Summary ---
Author Organization [facility] Address [address] [place] [address] Care Team Providers Care Will Call Clerk Name Role Phone Ela Leary MD Primary Care Provider Encounter Details Date Type Department Care Team (Late st Contact Info) Description 09/26/1998 Outpatient Historical [facility] Cardiology [facility] [address] [place] [address] Mane Prater MD [address] [place] [address] Mitral valve disorder (Primary Dx) Social History Tobacco Use Types Packs/Day Years Used Date Smoking Tobacco: Never Assessed Comments Unknown Sex and Gender Information Value Date Recorded Sex Assigned at Not on file Legal Sex Female 3:56 AM MOTO MIX OPERATOR Gender Identity Not on file Sexual Orientation Not on file documented as of this encounter Plan of Treatment Not on file documented as of this encounter Visit Diagnoses Diagnosis Mitral valve disorder- Primary Mitral valve disorders documented in this encounter Care Teams Will Call Clerk Relationship Specialty Start Date End Date Ela Leary MD [address] [place] [phone] PCP - General Family Practice 10/26/16 documented as of this encounter
--- OUTSIDE RECORDS SUMMARY | 2024-11-07 18:06 | XMS_ITS | Encounter Summary ---
Author Organization [facility] Address [address] [place] [address] Care Team Providers Care Kindergarten Paraprofessional Name Role Phone Ela Leary MD Primary Care Provider Encounter Details Date Type Department Care Team (Latest Contact Info) Description 07/12/1998 Outpatient Historical [facility] Layo Rose Jr., MD [address] [place] [address] Obesity, unspecified (Primary Dx); Dietary surveil/camp head counselor Social History Tobacco Use Types Packs/Day Years Used Date Smoking Tobacco: Never Assessed Comments Unknown Sex and Gender Information Value Date Recorded Sex Assigned at Not on file Legal Sex Female 3:56 AM FREIGHT BROKER AGENT Gender Identity Not on file Sexual Orientation Not on file documented as of this encounter Plan of Treatment Not on file documented as of this encounter Visit Diagnoses Diagnosis Obesity, unspecified- Primary Dietary surveil/camp head counselor Dietary surveillance and counseling documented in this encounter Care Teams Kindergarten Paraprofessional Relationship Specialty Start Date End Date Ela Leary MD [address] [place] [phone] PCP - General Family Practice 10/26/16 documented as of this encounter
--- OUTSIDE RECORDS SUMMARY | 2024-11-07 18:06 | XMS_ITS | Clinical Summary ---
Author Organization [facility] Address [address] [facility] Attn: [place] [address] Care Team Providers Care Director Strategic Account Management Name Role Phone Ela Leary MD Primary [...] Encounters Date Type Department Care Team Description 11/01/2024 External Device Data [facility] ABSTRACTION Provider, Abstract 10/31/2024 External Device Data [facility] ABSTRACTION Provider, Abstract 10/31/2024 External Device Data [facility] ABSTRACTION Provider, Abstract 10/24/2024 Telephone [facility] [address] [place] [phone] Shubham Smyth MD schedule consult 09/20/2024 Abstract [facility] [address] [facility] [address] [place] [phone] Shanda Menchaca FNP from Last 3 Months [...] on file Legal Sex Female 3:49 AM VARNISH MAKER Gender Identity Not on file Sexual Orientation Not on file Last Filed Vital Signs Vital Sign Reading Time Taken Comments Blood Pressure 130/68 03/10/2019 10:14 AM VARNISH MAKER Pulse 60 03/10/2019 10:14 AM VARNISH MAKER Temperature - - Respiratory Rate - - Oxygen Saturation - - Inhaled Oxygen Concentration - - Weight 126.1 kg (278 lb) 03/10/2019 10:14 AM VARNISH MAKER Height 149.9 cm (4' 11 ) 03/10/2019 10:14 AM VARNISH MAKER Body Mass Index 56.15 03/10/2019 10:14 AM VARNISH MAKER Plan of Treatment Health Maintenance Due Date [...] SCREENING 02/07/2024 INFLUENZA VACCINE (#1) 2024 Insurance [facility] [id number] Care Teams Director Strategic Account Management Relationship Specialty Start Date End Date Ela Leary MD [address] [place] [phone] PCP - General Family Practice 10/26/16
--- OUTSIDE RECORDS SUMMARY | 2024-11-07 18:06 | XMS_ITS | Encounter Summary ---
Author Organization [facility] Address [address] [place] [address] Care Team Providers Care Passenger Barge Master Name Role Phone Ela eLary MD Primary Care Provider Encounter Details Date Type Department Care Team (Late st Contact Info) Description 06/01/2002 Outpatient Historical [facility] Cardiology Ancillary Services[place] [address] [place] [address] Shubham Smyth MD [address] [facility] [address] [place] [address] Mitral valve disorder (Primary Dx) Social History Tobacco Use Types Packs/Day Years Used Date Smoking Tobacco: Never Assessed Comments Unknown Sex and Gender Information Value Date Recorded Sex Assigned at Not on file Legal Sex Female 3:56 AM TECHNICAL SERVICES COORDINATOR Gender Identity Not on file Sexual Orientation Not on file documented as of this encounter Plan of Treatment Not on file documented as of this encounter Visit Diagnoses Diagnosis Mitral valve disorder- Primary Mitral valve disorders documented in this encounter Care Teams Passenger Barge Master Relationship Specialty Start Date End Date Ela Leary MD [address] [place] [phone] PCP - General Family Practice 10/26/16 documented as of this encounter
--- OUTSIDE RECORDS SUMMARY | 2024-11-07 18:06 | XMS_ITS | Encounter Summary ---
Author Organization [facility] Address 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
--- OUTSIDE RECORDS SUMMARY | 2024-11-07 18:06 | XMS_ITS | Clinical Summary ---
Author Organization [facility] Address [address] 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 Gender Identity Not on file Sexual Orientation Not on file Last Filed Vital Signs Vital Sign Reading Time Taken Comments Blood Pressure 130/68 03/10/2019 10:14 AM PROPELLER ENGINEER Pulse 60 03/10/2019 10:14 AM PROPELLER ENGINEER Temperature - - Respiratory Rate - - Oxygen Saturation - - Inhaled Oxygen Concentration - - Weight 126.1 kg (278 lb) 03/10/2019 10:14 AM PROPELLER ENGINEER Height 149.9 cm (4' 11 ) 03/10/2019 10:14 AM PROPELLER ENGINEER Body Mass Index 56.15 03/10/2019 10:14 AM PROPELLER ENGINEER Plan of Treatment Health Maintenance Due Date [...] INFLUENZA VACCINE (#1) 2024 Insurance [place] [id number] [facility] DUAL COMPLETE MCR PPO D-SNP Care Teams Navigating Officer Relationship Specialty Start Date End Date Ela Leary MD [address] [place] [phone] PCP - General Family Practice 10/26/16
--- OUTSIDE RECORDS SUMMARY | 2024-11-07 18:06 | XMS_ITS | Encounter Summary ---
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 (Primary Dx) Social History Tobacco Use Types Packs/Day Years Used Date Smoking Tobacco: Never Assessed Comments Unknown Sex and Gender Information Value Date Recorded Sex Assigned at Not on file 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
--- OUTSIDE RECORDS SUMMARY | 2024-11-07 18:06 | XMS_ITS | Encounter Summary ---
Author Organization [facility] Address [address] [place] [address] Care Team Providers Care Tire Center Supervisor Name Role Phone Ela Leary MD Primary Care Provider Encounter Details Date Type Department Care Team (Latest Contact Info) Description 11/14/1998 Outpatient Historical [facility] Cardiology- [place] [address] [place] [address] Mane Prater MD [address] [facility] [address] [place] [address] Unspecified transient cerebral ischemia (Primary Dx); Mitral stenosis with insufficiency Social History Tobacco Use Types Packs/Day Years Used Date Smoking Tobacco: Never Assessed Comments Unknown Sex and Gender Information Value Date Recorded Sex Assigned at Not on file Legal Sex Female 3:56 AM 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
--- OUTSIDE RECORDS SUMMARY | 2024-11-07 18:06 | XMS_ITS | Encounter Summary ---
Author Organization [facility] Address [address] [place] [address] Care Team Providers Care Boiler Mechanic Name Role Phone Ela Leary MD Primary Care Provider Encounter Details Date Type Department Care Team (Latest Contact Info) Description 05/26/2001 Outpatient Historical [facility] Cardiology- [place] [address] [place] [address] Mane Prater MD [address] [facility] [address] [place] [address] PRIM CARDIOMYOPATHY NEC (CMS/HCC) (Primary Dx); Mitral valve disorder Social History Tobacco Use Types Packs/Day Years Used Date Smoking Tobacco: Never Assessed Comments Unknown Sex and Gender Information Value Date Recorded Sex Assigned at Not on file 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
--- OUTSIDE RECORDS SUMMARY | 2024-11-07 18:06 | XMS_ITS | Encounter Summary ---
Author Organization [facility] Address [address] [place] [address] Care Team Providers Care Rent And Housing Investigator Name Role Phone Ela Leary MD Primary Care Provider Encounter Details Date Type Department Care Team (Latest Contact Info) Description 05/26/2001 Outpatient Historical [facility] Cardiology Ancillary Services-[place] [address] [place] [address] Al Diaz MD [address] [address] [place] [address] Mitral valve disorder (Primary Dx) Social History Tobacco Use Types Packs/Day Years Used Date Smoking Tobacco: Never Assessed Comments Unknown Sex and Gender Information Value Date Recorded Sex Assigned at Not on file 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
--- OUTSIDE RECORDS SUMMARY | 2024-11-07 18:06 | XMS_ITS | Encounter Summary ---
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
--- NOTE | 2024-11-07 18:11 | XRR_ITS ---
PROCEDURE INFORMATION: Exam: XR Chest Exam date and time: 11/07/2024 6:16 PM Age: 64 years old Clinical indication: Other: Chf TECHNIQUE: Imaging protocol: Radiologic exam of the chest. Views: 1 view. COMPARISON: CR XR chest 1V portable [id number] 10/26/2024 8:21 AM FINDINGS: Lungs: Unremarkable. No consolidation. Pleural spaces: Unremarkable. No pleural effusion. No pneumothorax. Heart/Mediastinum: Unremarkable. No cardiomegaly. Bones/joints: Moderate degenerative changes of the thoracic vertebral bodies. Single-view. XR/XR chest 1V portable [id number] IMPRESSION: No acute findings.
[2024-11-07 18:38] LABS: Hematocrit 37.9 % (36-47); Hemoglobin 11.70 g/dL (11.27-16.99); Mean Corpuscular HGB Conc 30.9 g/dL (30-55); Mean Corpuscular Hemoglobin 32.3 pg (27-33); Mean Corpuscular Volume 104.7 fl (85-98); Nucleated Red Blood Cells % 0.6 %; Platelet Count 151 10^3/cmm (157-399); Red Blood Count 3.62 10^6/uL (3.85-5.65); White Blood Count 4.68 10^3/uL (3.29-11.43)
[2024-11-07 19:07] LABS: Alanine Aminotransferase < 5 U/L (0-33); Albumin Level 3.8 g/dL (3.5-5.2); Alkaline Phosphatase 69 U/L (35-105); Anion Gap 18.0 (5-19); Aspartate Amino Transferase 13 U/L (0-32); Blood Urea Nitrogen 27 mg/dL (8-23); Calcium 9.0 mg/dL (8.5-10.5); Carbon Dioxide 27 mmol/L (22-29); Chloride 101 mmol/L (98-107); Creatinine Clr Calc Pharmacy 72.2911; Globulin 3.3 g/dL (1.3-4.6); Glucose 106 mg/dL (65-115); NT Pro B Type Natriuretic Pept 5228 pg/mL (0-125); Osmolality Calculated 298 mOsm/kg (285-295); Potassium 5.0 mmol/L (3.5-5.1); Sodium 141 mmol/L (136-145); Total Protein 7.1 g/dL (6.6-8.7)
--- NOTE | 2024-11-07 19:08 | W.ED.ABDPA2 ---
HPI - Abdominal Pain General: Chief Complaint: Abdominal Pain Stated Complaint: CHF lower abd pain Time Seen by Provider: 11/07/24 17:58 Source: patient and family Mode of arrival: ambulatory Limitations: no limitations History of Present Illness: Patient is a 64-year-old female with past medical history of diabetes, atrial fibrillation, and congestive heart failure who presents to the emergency department complaining of continued abdominal swelling and overall malaise since discharge from the hospital on 10/29. She was seen here on 10/26 and admitted for acute kidney injury, was given Bumex in the emergency department and started on Eliquis for newly diagnosed atrial fibrillation and ultimately discharged on 10/29. She states that since discharge she has continued to feel ill, and has since developed decreased appetite, and nausea/vomiting. States that the swelling in her legs has gone down but she has continued to have abdominal swelling and fullness. She is set to see cardiology on 11/16, she had echocardiogram while in the hospital showing ejection fraction 45 to 50%. She is not having any chest pain or shortness of breath at this time. Slightly hypotensive, overall nontoxic-appearing but is morbidly obese female. No use of oxygen supplemental at this time. Currently she is taking Bumex 2 mg daily, recently had her metformin discontinued. She has also been taking supplemental magnesium as well as potassium. She states she has lost 3 pounds over the last 2 weeks. MD elicited complaint: abdominal pain (Swelling) Onset (ago): week(s) Pain Consistency: constant Location: Diffuse Severity: similar to previous episodes Quality: fullness Context: other (Recent hospitalization, CHF diagnosis) Associated Symptoms: Reports bloating, nausea and vomiting; Denies change in stool character, chills, constipation, diarrhea, dysuria, fever(s) and hematochezia Related Data Home Medications ?Medication ?Instructions ?Recorded ?Confirmed carvedilol 6.25 mg tablet 6.25 mg PO BID 05/28/20 10/26/24 metformin 500 mg tablet 500 mg PO DAILY 05/28/20 10/26/24 montelukast 10 mg tablet 10 mg PO BEDTIME 05/28/20 10/26/24 simvastatin 10 mg tablet 5 mg PO BEDTIME 05/28/20 10/26/24 allopurinol 100 mg tablet 200 mg PO DAILY 03/10/24 10/26/24 albuterol sulfate 2.5 mg/3 mL 2.5 mg inhalation Q6H PRN 10/17/24 10/26/24 (0.083 %) solution for nebulization Shortness Of Breath aspirin 81 mg tablet,delayed 81 mg PO DAILY 10/17/24 10/26/24 release levothyroxine 88 mcg tablet 88 mcg PO QAM 10/17/24 10/26/24 omeprazole 20 mg capsule,delayed 20 mg PO DAILY 10/17/24 10/26/24 release acetaminophen 500 mg tablet 500 mg PO Q6H PRN Pain 10/26/24 10/26/24 dapagliflozin propanediol 10 mg 10 mg PO DAILY 10/26/24 10/26/24 tablet (Farxiga) Previous Rx's ?Medication ?Instructions ?Recorded azelastine 137 mcg (0.1 %) nasal 2 spray intranasal BID #30 mL 12/23/21 spray albuterol sulfate 90 mcg/actuation 2 inh inhalation Q4H PRN shortness 03/10/24 aerosol inhaler (Ventolin HFA) of breath or wheezing #8.5 grams apixaban 5 mg tablet (Eliquis) 5 mg PO BID@0500,1700 #60 tabs 10/29/24 bumetanide 1 mg tablet 2 mg (2 x 1 mg) PO BID@0500,1700 10/29/24 #60 tabs magnesium oxide 400 mg PO BID #60 tabs 10/29/24 spironolactone 25 mg tablet 25 mg PO DAILY #30 tabs 11/07/24 Allergies Allergy/AdvReac Type Severity Reaction Status Date / Time codeine Allergy ALGY-Hives Verified 11/07/24 18:07 furosemide (From Lasix) Allergy ALGY-Hives Verified 11/07/24 18:07 methylprednisolone (From Allergy ALGY-Anaphy Verified 11/07/24 18:07 Solu-Medrol) laxis morphine Allergy ALGY-Hives Verified 11/07/24 18:07 Review of Systems General: Reports: 10 or more systems reviewed and unremarkable except in HPI and below Const: Reports: change in appetite and malaise; Denies: fever(s), chills or diaphoresis ENMT: Denies: throat pain or hoarseness Card: Denies: chest pain, palpitations or lightheadedness Resp: Denies: dyspnea, productive cough or wheezing GI: Reports: abdominal pain, nausea, vomiting and bloating; Denies: diarrhea, constipation, change in stool character or hematochezia : Denies: flank pain, difficulty voiding, dysuria, urinary frequency or urinary urgency Musc: Denies: neck pain or back pain Skin/Breast: Denies: rash or new lesions Neuro: Denies: headache(s) or dizziness PFSH ED PFSH: Medical History Morbid obesity with BMI of 50.0-59.9, adult Atrial fibrillation Asthma HLD (hyperlipidemia) Diabetes Social History Smoking and tobacco/nicotine status: never used tobacco/nicotine Alcohol intake: current Alcohol intake frequency: holidays/special occasions only Substance/Drug Use: never Physical Exam Const: COMMON NORMALS: patient oriented x3, no limitations and alert NUTRITIONAL APPEARANCE: obese morbidly obese ORIENTATION/CONSCIOUSNESS: Yes awake HENMT: COMMON NORMALS: normocephalic and atraumatic HEAD & SCALP: normocephalic and atraumatic Eye: COMMON NORMALS: Equal, round and reactive pupils present and EOMs intact bilaterally PUPIL: Yes Equal, round and reactive pupils present Neck/C-Spine: COMMON NORMALS: full ROM and no JVD Resp: COMMON NORMALS: normal respiratory effort, No retractions and No use of accessory muscles OTHER: Distant lung sounds throughout, no crackles or wheezing Cardio: COMMON NORMALS: no JVD, regular rate and regular rhythm RATE: regular rate RHYTHM: regular rhythm GI: COMMON NORMALS: non-tender INSPECTION: Yes Anasarca, Yes central obesity and Yes Abdominal panniculus present PALPATION: Yes Hernia present umbilical : EXTERNAL FEMALE EXAM: Yes Hernia present Extremity: NARRATIVE EXTREMITY EXAM: 2+ edema bilateral lower extremities Neuro: COMMON NORMALS: patient oriented x3, moves all extremities, no focal motor deficits and no sensory deficits noted SENSORIUM/ORIENTATION: Yes alert Skin: COMMON NORMALS: no rashes or lesions noted GENERAL SKIN EXAM: no rashes or lesions noted Course Vital Signs: Vital signs: Vital Signs Temperature 98.0 F 11/07/24 18:03 Pulse Rate 81 11/07/24 21:00 Respiratory Rate 16 11/07/24 18:03 Blood Pressure 102/64 11/07/24 21:00 Pulse Oximetry 96 11/07/24 21:00 Oxygen Delivery Me thod Room Air 11/07/24 20:00 MDM - Abdominal Pain Medical Decision Making Patient comes in for continued abdominal swelling, recently hospitalized here in the emergency department where she is diagnosed with A-fib as well as congestive heart failure. She currently is taking Bumex for diuresis, has a history of Lasix allergy. States the swelling in her legs have improved but still in her abdomen, she has been having nausea vomiting and continued malaise. Reporting 3 pound weight loss over the past 10 days to 2 weeks. Lab work repeated, and is ultimately unchanged from her labs at discharge on 10/29. Her vitals have been stable here in the emergency department, does not require supplemental oxygen. She is morbidly obese and chronically ill-appearing, but not toxic at this time. I spoke with hospitalist in regards to questionable admission for continued diuresis, however Dr. Yanes recommending starting on 25 mg spironolactone and having the patient be more strict with fluid restriction, as after questioning the patient she states that she does not have a specific set amount that she is restricted to and that she is trying to drink enough but not too much. She will be started on the spironolactone as admission to the hospital is not recommended at this time and she is given strict return precautions and told to follow-up with primary care. She also has upcoming appointment with cardiology. I do suspect that her symptoms are related to inadequate diuresis. Lab Data 11/07/24 18:29 11/07/24 18:29 Labs/Radiology: Radiology Impressions Chest X-Ray 11/07/24 18:11 IMPRESSION: No acute findings. Laboratory Results WBC 4.68 10^3/uL (3.29-11.43) 11/07/24 18: RBC 3.62 10^6/uL (3.85-5.65) L 11/07/24 18: Hgb 11.70 g/dL (11.27-16.99) 11/07/24 18: Hct 37.9 % (36-47) 11/07/24 18: MCV 104.7 fl (85-98) H 11/07/24 18: MCH 32.3 pg (27-33) 11/07/24 18: MCHC 30.9 g/dL (30-55) 11/07/24 18: RDW 18.2 % (12.1-15.1) H 11/07/24 18: Plt Count 151 10^3/cmm (157-399) L 11/07/24 18: MPV 11.1 fL (7.4-10.4) H 11/07/24 18: Neut % (Auto) 54.2 % 11/07/24 18: Lymph % (Auto) 15.0 % 11/07/24 18: Gates % (Auto) 9.6 % 11/07/24 18: Eos % (Auto) 19.9 % 11/07/24 18: Baso % (Auto) 1.1 % 11/07/24 18: Neut # (Auto) 2.54 10^3/uL (1.8-7.7) 11/07/24 18: Lymph # (Auto) 0.7 10^3/uL (0.8-4.8) L 11/07/24 18: Gates # (Auto) 0.5 10^3/uL (0.2-0.9) 11/07/24 18: Eos # (Auto) 0.9 10^3/uL (0.0-0.8) H 11/07/24 18: Baso # (Auto) 0.1 10^3/uL (0.0-0.1) 11/07/24 18: Nucleated RBC % (auto) 0.6 % 11/07/24 18: Nucleated RBCs # 0.0 /100WBC 11/07/24 18: Sodium 141 mmol/L (136-145) 11/07/24 18: Potassium 5.0 mmol/L (3.5-5.1) 11/07/24 18: Chloride 101 mmol/L (98-107) 11/07/24 18: Carbon Dioxide 27 mmol/L (22-29) 11/07/24 18: Anion Gap 18.0 (5-19) 11/07/24 18: BUN 27 mg/dL (8-23) H 11/07/24 18: Creatinine 1.4 mg/dL (0.5-0.9) H 11/07/24 18:29 GFR Calculation 37.7 mL/min (90-130) L 11/07/24 18: Glucose 106 mg/dL (65-115) 11/07/24 18:29 Calculated Osmolality 298 mOsm/kg (285-295) H 11/07/24 18: Calcium 9.0 mg/dL (8.5-10.5) 11/07/24 18: Total Bilirubin 0.8 mg/dL (0.15-1.2) 11/07/24 18:29 AST 13 U/L (0-32) 11/07/24 18: ALT < 5 U/L (0-33) 11/07/24 18: Alkaline Phosphatase 69 U/L (35-105) 11/07/24 18: NT-Pro-B Natriuret Pep 5228 pg/mL (0-125) H 11/07/24 18: Total Protein 7.1 g/dL (6.6-8.7) 11/07/24 18: Albumin 3.8 g/dL (3.5-5.2) 11/07/24 18: Globulin 3.3 g/dL (1.3-4.6) 11/07/24 18:29 Urine Color Yellow (Yellow) 11/07/24 19:41 Urine Appearance Clear (CLEAR) 11/07/24 19:41 Urine pH 5.0 (5-7) 11/07/24 19:41 Ur Specific [place] 1.024 (1.005-1.030) 11/07/24 19:41 Urine Protein 1+ (Negative) A 11/07/24 19:41 Urine Glucose (UA) 2+ (Normal) H 11/07/24 19:41 Urine Ketones Negative (Negative) 11/07/24 19:41 Urine Blood Negative (Negative) 11/07/24 19:41 Urine Nitrate Negative (Negative) 11/07/24 19:41 Urine Bilirubin Negative (Negative) 11/07/24 19:41 Urine Urobilinogen 1.0 mg/dL (Negative) 11/07/24 19:41 Ur Leukocyte Esterase 1+ (Negative) A 11/07/24 19:41 Urine RBC 0-2 /hpf (0-2) 11/07/24 19:41 Urine WBC 6-10 /hpf (0-5) 11/07/24 19:41 Ur Squamous Epith Cells 0-5 /hpf (0-5) 11/07/24 19:41 Amorphous Sediment Not Reportable 11/07/24 19:41 Urine Bacteria None seen /hpf (NONE) 11/07/24 19:41 Hyaline Casts 26.04 /lpf 11/07/24 19:41 Influenza A (PCR) Negative (Negative) 11/07/24 19:15 Influenza Type B (PCR) Negative (Negative) 11/07/24 19:15 RSV (PCR) Negative (Negative) 11/07/24 19:15 SARS-CoV-2 (PCR) Negative (Negative) 11/07/24 19:15 All radiology interpretation(s) finalized by discharge Discharge Plan Discharge Patient Disposition: Home Clinical Impression: CHF (congestive heart failure) Qualifiers: Heart failure type: unspecified Heart failure chronicity: acute on chronic Qualified Code(s): I50.9 - Heart failure, unspecified Atrial fibrillation Qualifiers: Atrial fibrillation type: unspecified Qualified Code(s): I48.91 - Unspecified atrial fibrillation Condition: Stable Prescriptions: New spironolactone 25 mg tablet 25 mg PO DAILY Qty: 30 0RF Discontinued potassium chloride [Klor-Con M20] 20 mEq Tablet,Er Particles/Crystals 20 meq PO BID@0500,1700 Qty: 60 0RF No Action azelastine 137 mcg (0.1 %) aerosol,spray 2 spray intranasal BID Qty: 30 2RF Rx Instructions: administer into each nostril montelukast 10 mg tablet 10 mg PO BEDTIME carvedilol 6.25 mg tablet 6.25 mg PO BID simvastatin 10 mg tablet 5 mg PO BEDTIME metformin 500 mg tablet 500 mg PO DAILY allopurinol 100 mg tablet 200 mg PO DAILY albuterol sulfate [Ventolin HFA] 90 mcg/actuation HFA aerosol inhaler 2 inh inhalation Q4H PRN (Reason: shortness of breath or wheezing) Qty: 8.5 0RF albuterol sulfate 2.5 mg /3 mL (0.083 %) solution for nebulization 2.5 mg inhalation Q6H PRN (Reason: Shortness Of Breath) aspirin 81 mg Tablet,Delayed Release (Dr/Ec) 81 mg PO DAILY levothyroxine 88 mcg tablet 88 mcg PO QAM omeprazole 20 mg capsule,delayed release(DR/EC) 20 mg PO DAILY acetaminophen 500 mg Tablet 500 mg PO Q6H PRN (Reason: Pain) dapagliflozin propanediol [Farxiga] 10 mg tablet 10 mg PO DAILY bumetanide 1 mg Tablet 2 mg PO BID@0500,1700 Qty: 60 0RF Eliquis 5 mg Tablet 5 mg PO BID@0500,1700 Qty: 60 0RF magnesium oxide 400 mg magnesium tablet 400 mg PO BID Qty: 60 0RF Discharge Orders: Discharge ED (Routine); Ordered 11/07/24 Ordered By: Franck Chaves Referrals: Shanda Menchaca, ELECTRODE CLEANING MACHINE OPERATOR [Primary Care Provider, Nurse Practitioner] Patient Instructions: Patient Portal & Jack Instructions Activity Restrictions/Additional Instructions: CHF Discharge Instructions Diagnosis: Chronic congestive heart failure (CHF), persistent peripheral edema post-hospitalization. Discharge Medications: - Bumetanide (Bumex): Continue current outpatient regimen. Dose and frequency per prior discharge plan. - Spironolactone: Initiate 25 mg orally once daily. Monitor for hyperkalemia and renal function per guideline-directed therapy. - Potassium supplement: Discontinue oral potassium at home due to initiation of spironolactone and ongoing loop diuretic therapy. Monitor serum potassium closely. Fluid and Sodium Restriction: - Fluid restriction: Limit total daily fluid intake to 2 liters (64 ounces), unless otherwise directed based on clinical status. This is consistent with consensus recommendations for patients with ongoing congestion and polypharmacy. In cases of refractory congestion or hyponatremia, consider further restriction to 1.5?2 L/day. - Sodium restriction: Advise dietary sodium intake of <3 grams/day. While evidence is mixed, this is considered reasonable for symptomatic CHF to reduce congestion. Self-Monitoring and Rescue Plan: - Daily weight: Weigh at the same time each morning, after urination and before eating. Record weight and report any increase of >2 pounds (1 kg) in 1 day or >5 pounds (2.3 kg) in 1 week. - Symptom monitoring: Watch for increased swelling, shortness of breath, orthopnea, paroxysmal nocturnal dyspnea, or new/worsening fatigue. - Rescue plan: If significant weight gain or worsening symptoms of congestion occur, contact the outpatient clinician promptly for possible diuretic adjustment. Do not delay escalation if unsure; early intervention is critical. Laboratory Monitoring: - Follow-up labs: Repeat serum electrolytes, renal function, and potassium within 2 days at primary care follow-up, per guideline recommendations for safety after medication changes. - Ongoing monitoring: Continue regular laboratory surveillance as directed, especially after any medication adjustments. Follow-Up: - Primary care provider: Appointment scheduled in 2 days for clinical evaluation and laboratory review. Early post-discharge follow-up is associated with reduced readmission risk. - Care coordination: Ensure all medication changes and discharge plans are communicated to outpatient clinicians. Return Precautions (Strict): - Seek immediate medical attention for: - Rapidly worsening shortness of breath or inability to lie flat - New or worsening chest pain - Confusion, severe weakness, or fainting - Marked increase in swelling of legs, abdomen, or sudden weight gain (>5 pounds in 1 week) - Decreased urine output or dark urine - Palpitations or irregular heartbeat - Signs of hyperkalemia (muscle weakness, arrhythmia) or hypokalemia (muscle cramps, arrhythmia) Additional Instructions: - Medication adherence: Take all medications as prescribed. Do not restart potassium supplements unless specifically instructed. - Diet: Adhere to sodium and fluid restrictions. Avoid processed foods and added salt. - Activity: Resume activity as tolerated; avoid excessive exertion until cleared at follow-up. - Contact information: For questions or concerns, contact the outpatient clinician or heart failure nurse. Summary: The above plan is consistent with current [place] [employer] and [place] [employer] guidelines for post-discharge management of CHF, emphasizing maintenance diuretic therapy, careful monitoring of potassium and renal function, individualized fluid restriction, and early outpatient follow-up to reduce risk of readmission and adverse outcomes. Print Language: Khmer Coding Level of Care Code ED [employer] for [employer]rol[employer]
[2024-11-07 19:38] VITALS: BP 92/58; PULSE 71; O2SAT 95
[2024-11-07 19:55] LABS: Glucose Urine UA 2+ (Normal); Nitrate Urine Negative (Negative); Specific Gravity, Urine 1.024 (1.005-1.030)
--- NOTE | 2024-11-07 19:57 | ECG_ITS ---
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 Measurements Intervals [place] Rate: 74 P: 0 VT: 0 QRS: -57 QRSD: 117 T: 75 QT: 422 QTc: 470 Interpretive Statements ATRIAL FIBRILLATION WITH ABERRANT CONDUCTION OR VENTRICULAR PREMATURE COMPLEXES LEFT AXIS DEVIATION [QRS AXIS < -30] LOW QRS VOLTAGE IN PRECORDIAL LEADS [QRS DEFLECTION < 1.0 mV IN CHEST LEADS] POSSIBLE ANTERIOR MYOCARDIAL INFARCTION , PROBABLY OLD [30 ms Q WAVE IN V3/V4, OR R < 0.2 mV IN V4] NONSPECIFIC INTRAVENTRICULAR CONDUCTION DELAY Compared to ECG 10/26/2024 08:02:12 NO SIGNIFICANT CHANGE Electronically Signed On 11-08-2024 21:39:56 CDT by Juan Jose Leiva M.D. [email or web address]
[2024-11-07 20:00] VITALS: BP 93/64; PULSE 73; O2SAT 96
[2024-11-07 20:00] LABS: Add Urine Microscopic? YES
[2024-11-07] MEDS: oxyCODONE-APAP 5-325 mg Tablet 1 TAB PO (20:43)
[2024-11-07 20:58] LABS: Respiratory Syncytial Virus Ce NEGATIVE (Negative); SARS-CoV-2 PCR NEGATIVE (Negative)
[2024-11-07 21:00] VITALS: BP 102/64; PULSE 81; O2SAT 96
== END 2024-11-07 20:56 | disposition home or self-care (01) ==
PROVIDERS: Emergency Provider Physician Assistant; PCP Nurse Practitioner Family
DX: I48.91 Unspecified atrial fibrillation (principal); I50.9 Heart failure, unspecified; Z79.84 Long term (current) use of oral hypoglycemic drugs; Z79.82 Long term (current) use of aspirin; Z79.01 Long term (current) use of anticoagulants; Z11.52 Encounter for screening for COVID-19; E11.9 Type 2 diabetes mellitus without complications; E78.5 Hyperlipidemia, unspecified
CPT/HCPCS: 36415; 71045; 80053; 81001; 83880; 85025; 87637; 93005; 99285; J9999

== ENCOUNTER → 2024-11-16 13:57 | Outpatient (BNVA) | payer MEDICARE, SELFPAY | PROVIDERS: PCP Nurse Practitioner Family; Referring Provider Nurse Practitioner Family; Visit Provider Internal Medicine Cardiovascular Disease | DX: I48.91 Unspecified atrial fibrillation (principal); N17.9 Acute kidney failure, unspecified | CPT/HCPCS: 36415 ==

== ENCOUNTER 2024-11-24 05:28 | Emergency (ER) | payer MEDICARE, SELFPAY ==
[2024-11-24] VITALS (8 sets, daily range): BP systolic 94–119; BP diastolic 45–91; PULSE 68–94; RESP 18; TEMP 36.6; O2SAT 90–95; BMI 50.1
--- NOTE | 2024-11-24 05:33 | ECG_ITS ---
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1960 Requested By: Blake Bernard Order Number: [id number] Mateus MD: NANNETTE KOROMA Measurements Intervals [place] Rate: 83 P: -46 CT: 139 QRS: -55 QRSD: 124 T: 116 QT: 442 QTc: 520 Interpretive Statements SINUS RHYTHM LEFT AXIS DEVIATION [QRS AXIS < -30] LEFT BUNDLE BRANCH BLOCK [120+ ms QRS DURATION, 80+ ms Q/S IN V1/V2, 85+ ms R IN I/aVL/V5/V6] Compared to ECG 11/07/2024 19:57:04 Left bundle-branch block now present Atrial fibrillation no longer present Ventricular premature complex(es) no longer present Aberrant conduction of supraventricular beat(s) no longer present Myocardial infarct finding no longer present Intraventricular conduction delay no longer present Electronically Signed On 11-26-2024 23:17:45 CDT by NANNETTE KOROMA [id number]
--- NOTE | 2024-11-24 05:37 | XRR_ITS ---
PROCEDURE INFORMATION: Exam: XR Chest Exam date and time: 11/24/2024 5:46 AM Age: 64 years old Clinical indication: Pain; Angina pectoris; Additional info: Chest and abd pain TECHNIQUE: Imaging protocol: Radiologic exam of the chest. Views: 1 view. COMPARISON: CR (CHEST, ) 11/07/2024 6:16 PM FINDINGS: Lungs: Unremarkable. No consolidation. Pleural spaces: Unremarkable. No pleural effusion. No pneumothorax. Heart/Mediastinum: Unremarkable. No cardiomegaly. Bones/joints: Unremarkable. XR/XR chest 1V portable [id number] IMPRESSION: No acute findings.
--- NOTE | 2024-11-24 05:56 | W.ED.ABDPA2 ---
Documented by User: Blake Bernard MD 11/24/24 06:03 HPI - Abdominal Pain General: Chief Complaint: Abdominal Pain Stated Complaint: CP over all sick Time Seen by Provider: 11/24/24 05:42 History of Present Illness: 64-year-old female extensive history of heart failure, presenting emergency department with 2-day history of abdominal and chest pain, generalized weakness and fatigue, no fevers, no vomiting or diarrhea she does endorse associated nausea, no urinary symptoms, no shortness of breath, no cough. Related Data Home Medications ?Medication ?Instructions ?Recorded ?Confirmed carvedilol 6.25 mg tablet 6.25 mg PO BID 05/28/20 11/24/24 metformin 500 mg tablet 500 mg PO DAILY 05/28/20 11/24/24 montelukast 10 mg tablet 10 mg PO BEDTIME 05/28/20 11/24/24 simvastatin 10 mg tablet 5 mg PO BEDTIME 05/28/20 11/24/24 allopurinol 100 mg tablet 200 mg PO DAILY 03/10/24 11/24/24 albuterol sulfate 2.5 mg/3 mL 2.5 mg inhalation Q6H PRN 10/17/24 11/24/24 (0.083 %) solution for nebulization Shortness Of Breath aspirin 81 mg tablet,delayed 81 mg PO DAILY 10/17/24 11/24/24 release levothyroxine 88 mcg tablet 88 mcg PO QAM 10/17/24 11/24/24 omeprazole 20 mg capsule,delayed 20 mg PO DAILY 10/17/24 11/24/24 release acetaminophen 500 mg tablet 500 mg PO Q6H PRN Pain 10/26/24 11/24/24 dapagliflozin propanediol 10 mg 10 mg PO DAILY 10/26/24 11/24/24 tablet (Farxiga) azelastine 137 mcg (0.1 %) nasal 2 spray intranasal BID PRN 11/24/24 11/24/24 spray allergies bumetanide 2 mg tablet 2 mg PO BID 11/24/24 11/24/24 nystatin-triamcinolone 100,000 1 applic topical BID PRN Skin 11/24/24 11/24/24 unit/g-0.1 % topical cream Irritation Previous Rx's ?Medication ?Instructions ?Recorded albuterol sulfate 90 mcg/actuation 2 inh inhalation Q4H PRN shortness 03/10/24 aerosol inhaler (Ventolin HFA) of breath or wheezing #8.5 grams apixaban 5 mg tablet (Eliquis) 5 mg PO BID@0500,1700 #60 tabs 10/29/24 magnesium oxide 400 mg PO BID #60 tabs 10/29/24 spironolactone 25 mg tablet 25 mg PO DAILY #30 tabs 11/07/24 sacubitril 24 mg-valsartan 26 mg 1 tab PO BID #180 tabs 11/16/24 tablet (Entresto) amoxicillin 875 mg-potassium 1 tab PO BID #14 tabs 11/24/24 clavulanate 125 mg tablet ondansetron HCl 4 mg tablet 4 mg PO Q6H PRN nausea and 11/24/24 vomiting #20 tabs tramadol 50 mg tablet 50 mg PO Q8H PRN pain #10 tabs 11/24/24 Allergies Allergy/AdvReac Type Severity Reaction Status Date / Time codeine Allergy ALGY-Hives Verified 11/07/24 18:07 furosemide (From Lasix) Allergy ALGY-Hives Verified 11/07/24 18:07 methylprednisolone (From Allergy ALGY-Anaphy Verified 11/07/24 18:07 Solu-Medrol) laxis morphine Allergy ALGY-Hives Verified 11/07/24 18:07 PFSH ED PFSH: Medical History Morbid obesity with BMI of 50.0-59.9, adult Atrial fibrillation Asthma HLD (hyperlipidemia) Diabetes Social History Smoking and tobacco/nicotine status: never used tobacco/nicotine Alcohol intake: current Alcohol intake frequency: holidays/special occasions only Substance/Drug Use: never Physical Exam Narrative: EXAM NARRATIVE: Gen: A&Ox4, no acute distress, nontoxic appearing, and morbidly obese HEENT: Normocephalic, atraumatic, no scleral icterus, external ears normal, moist mucous membranes Neck: Supple, full range of motion, no observable masses Lungs: No Respiratory distress, Lungs clear to auscultation bilaterally with bibasilar rales, no rhonchi or wheezing CV: Regular rate and rhythm, no murmur, no pitting edema to lower extremities bilaterally Abdomen: Soft, nondistended, nontender to palpation MSK: No joint swelling, FROM all 4 extremities Skin: No rashes, petechiae, lesions. Normal color per patient. Neuro: Alert and oriented, no slurred speech, sensation and strength grossly intact all 4 extremities Psych: Appropriate for situation. Course Reevaluation(s): Reevaluation #1: Patient signed out to oncoming physician at this time for follow-up workup reassessment and appropriate disposition Time: 06:03 Vital Signs: Vital signs: Vital Signs Temperature 98 F 11/24/24 05:37 Pulse Rate 82 11/24/24 10:30 Respiratory Rate 18 11/24/24 06:09 Blood Pressure 95/45 11/24/24 10:30 Pulse Oximetry 94 11/24/24 10:30 Oxygen Delivery Me thod Room Air 11/24/24 10:30 MDM - Abdominal Pain Medical Decision Making 64-year-old female with past medical history significant for diabetes, A-fib, CHF, morbid obesity, presenting the emergency department with abdominal pain nausea and chest pain x 2 days, nonspecific in nature, vital signs stable other than mild hypotension 90s over 60s, nontender abdomen, plan for labs, chest x-ray, assess volume status to see if patient is currently in heart failure which she has had in the past and was admitted for last month, reassess for disposition Lab Data 11/24/24 05:45 11/24/24 05:45 Labs/Radiology: Radiology Impressions Chest X-Ray 11/24/24 05:37 IMPRESSION: No acute findings. Gallbladder Ultrasound 11/24/24 07:10 IMPRESSION: 1. Cholelithiasis without acute cholecystitis. Numerous stones in the gallbladder. Gallbladder wall is top normal size with no adjacent inflammation. No gallbladder hydrops. 2. Normal common bile duct. 3. Poorly visualized kidney and pancreas. 4. Small amount of ascites adjacent to the liver. 5. Hepatic steatosis and hepatomegaly with changes of cirrhosis suspected. Abdomen/Pelvis CT 11/24/24 09:46 IMPRESSION: 1. Wall thickening and induration about the sigmoid colon in the pelvis suspicious for acute diverticulitis. No drainable abscess. 2. Large infraumbilical [place] fat-containing hernia with fluid similar to previous. 3. Diffuse body wall anasarca. 4. Small amount of perihepatic ascites. 5. Cholelithiasis. No gallbladder wall thickening or pericholecystic fluid. Notified Salvador Dickinson DO at 11/24/2024 10:41 AM. Laboratory Results WBC 7.59 10^3/uL (3.29-11.43) 11/24/24 05:45 RBC 4.44 10^6/uL (3.85-5.65) 11/24/24 05:45 Hgb 13.90 g/dL (11.27-16.99) 11/24/24 05:45 Hct 46.2 % (36-47) 11/24/24 05:45 MCV 104.1 fl (85-98) H 11/24/24 05:45 MCH 31.3 pg (27-33) 11/24/24 05:45 MCHC 30.1 g/dL (30-55) 11/24/24 05:45 RDW 17.9 % (12.1-15.1) H 11/24/24 05:45 Plt Count 214 10^3/cmm (157-399) 11/24/24 05:45 MPV 10.6 fL (7.4-10.4) H 11/24/24 05:45 Neut % (Auto) 66.7 % 11/24/24 05:45 Lymph % (Auto) 10.3 % 11/24/24 05:45 [place] % (Auto) 7.8 % 11/24/24 05:45 Eos % (Auto) 14.1 % 11/24/24 05:45 Baso % (Auto) 0.8 % 11/24/24 05:45 Neut # (Auto) 5.07 10^3/uL (1.8-7.7) 11/24/24 05:45 Lymph # (Auto) 0.8 10^3/uL (0.8-4.8) 11/24/24 05:45 [place] # (Auto) 0.6 10^3/uL (0.2-0.9) 11/24/24 05:45 Eos # (Auto) 1.1 10^3/uL (0.0-0.8) H 11/24/24 05:45 Baso # (Auto) 0.1 10^3/uL (0.0-0.1) 11/24/24 05:45 Nucleated RBC % (auto) 0 % 11/24/24 05:45 Nucleated RBCs # 0.0 /100WBC 11/24/24 05:45 PT 18.50 SECONDS (12.1-14.9) H 11/24/24 05:45 INR 1.44 (0.8-1.2) H 11/24/24 05:45 APTT 35.9 SECONDS (23.9-36.7) 11/24/24 05:45 Sodium 139 mmol/L (136-145) 11/24/24 05:45 Potassium 3.4 mmol/L (3.5-5.1) L 11/24/24 05:45 Chloride 96 mmol/L (98-107) L 11/24/24 05:45 Carbon Dioxide 30 mmol/L (22-29) H 11/24/24 05:45 Anion Gap 16.4 (5-19) 11/24/24 05:45 BUN 21 mg/dL (8-23) 11/24/24 05:45 Creatinine 1.3 mg/dL (0.5-0.9) H 11/24/24 05:45 GFR Calculation 41.1 mL/min (90-130) L 11/24/24 05:45 Glucose 94 mg/dL (65-115) 11/24/24 05:45 Calculated Osmolality 291 mOsm/kg (285-295) 11/24/24 05:45 Calcium 9.3 mg/dL (8.5-10.5) 11/24/24 05:45 Total Bilirubin 1.4 mg/dL (0.15-1.2) H 11/24/24 05:45 AST 18 U/L (0-32) 11/24/24 05:45 ALT 8 U/L (0-33) 11/24/24 05:45 Alkaline Phosphatase 89 U/L (35-105) 11/24/24 05:45 Troponin T Baseline 17 ng/L (0-10) H 11/24/24 05:45 Troponin T 120 Minute 16.04 ng/L (0-10) H 11/24/24 07:28 Delta Troponin T -0.96 ABS# (0-10) L 11/24/24 07:28 NT-Pro-B Natriuret Pep 3480 pg/mL (0-125) H 11/24/24 05:45 Total Protein 8.2 g/dL (6.6-8.7) 11/24/24 05:45 Albumin 4.3 g/dL (3.5-5.2) 11/24/24 05:45 Globulin 3.9 g/dL (1.3-4.6) 11/24/24 05:45 Lipase 31 U/L (13-60) 11/24/24 05:45 Urine Color Yellow (Yellow) 11/24/24 06:00 Urine Appearance Clear (CLEAR) 11/24/24 06:00 Urine pH 7.5 (5-7) 11/24/24 06:00 Ur Specific [place] 1.011 (1.005-1.030) 11/24/24 06:00 Urine Protein Negative (Negative) 11/24/24 06:00 Urine Glucose (UA) 2+ (Normal) H 11/24/24 06:00 Urine Ketones Negative (Negative) 11/24/24 06:00 Urine Blood Negative (Negative) 11/24/24 06:00 Urine Nitrate Negative (Negative) 11/24/24 06:00 Urine Bilirubin Negative (Negative) 11/24/24 06:00 Urine Urobilinogen 0.2 mg/dL (Negative) 11/24/24 06:00 Ur Leukocyte Esterase Negative (Negative) 11/24/24 06:00 Amorphous Sediment Not Reportable 11/24/24 06:00 XR interpretation done by ED provider, pending radiology final review ED provider radiology interpretation(s): Chest x-ray not yet performed at time of signout EKG Data EKG 1: I personally reviewed and interpreted this EKG as follows: EKG interpretation date: 11/24/24 EKG interpretation time: 05:58 Interpretation: Sinus rhythm 83 bpm, left axis deviation, left bundle branch block unchanged from prior, negative STEMI by modified Sgar[place]ossa criteria, QTc 481 ms Discharge Plan Discharge Patient Disposition: Home Clinical Impression: Diverticulitis, Chronic kidney disease (CKD), History of congestive heart failure, Cholelithiasis Condition: Stable Prescriptions: New amoxicillin-pot clavulanate 875-125 mg tablet 1 tab PO BID Qty: 14 0RF ondansetron HCl 4 mg tablet 4 mg PO Q6H PRN (Reason: nausea and vomiting) Qty: 20 0RF tramadol 50 mg tablet 50 mg PO Q8H PRN (Reason: pain) Qty: 10 0RF No Action sacubitril-valsartan [Entresto] 24-26 mg tablet 1 tab PO BID Qty: 180 3RF montelukast 10 mg tablet 10 mg PO BEDTIME carvedilol 6.25 mg tablet 6.25 mg PO BID simvastatin 10 mg tablet 5 mg PO BEDTIME metformin 500 mg tablet 500 mg PO DAILY allopurinol 100 mg tablet 200 mg PO DAILY albuterol sulfate [Ventolin HFA] 90 mcg/actuation HFA aerosol inhaler 2 inh inhalation Q4H PRN (Reason: shortness of breath or wheezing) Qty: 8.5 0RF albuterol sulfate 2.5 mg /3 mL (0.083 %) solution for nebulization 2.5 mg inhalation Q6H PRN (Reason: Shortness Of Breath) aspirin 81 mg Tablet,Delayed Release (Dr/Ec) 81 mg PO DAILY levothyroxine 88 mcg tablet 88 mcg PO QAM omeprazole 20 mg capsule,delayed release(DR/EC) 20 mg PO DAILY spironolactone 25 mg tablet 25 mg PO DAILY Qty: 30 0RF acetaminophen 500 mg Tablet 500 mg PO Q6H PRN (Reason: Pain) dapagliflozin propanediol [Farxiga] 10 mg tablet 10 mg PO DAILY Eliquis 5 mg Tablet 5 mg PO BID@0500,1700 Qty: 60 0RF magnesium oxide 400 mg magnesium tablet 400 mg PO BID Qty: 60 0RF bumetanide 2 mg tablet 2 mg PO BID nystatin-triamcinolone 100,000-0.1 unit/g-% Cream 1 applic TOPICAL BID PRN (Reason: Skin Irritation) azelastine 137 mcg (0.1 %) spray,non-aerosol 2 spray intranasal BID PRN (Reason: allergies) Rx Instructions: administer into each nostril Discharge Orders: Discharge ED (Routine); Ordered 11/24/24 Ordered By: Salvador Dickinson Referrals: Shanda Menchaca, INTERMISSION COORDINATOR [Primary Care Provider, Nurse Practitioner] Discharge Diet: Clear Liquid Discharge Activity: Increase activity as tolerated Patient Instructions: Diverticulitis (ED), Opioid Safety, Pain Management, Patient Portal & Jack Instructions Activity Restrictions/Additional Instructions: Thank you for choosing [facility] for your healthcare needs today. It is very important that you follow up as instructed or that you return to the Emergency Department should you have concerns or if your condition changes or worsens in any way. Emergency department visits are focused on emergent conditions, in some cases you may require further evaluation on an outpatient basis. You were seen in the emergency room was complaints of chest discomfort and abdominal pain. There is no signs of decompensation of your heart failure on evaluation today your cardiac enzymes did not show any signs of acute coronary syndrome your EKG was also unchanged from your baseline. You were found to have gallbladder stones although these do not seem to be causing any problems acutely. On the CT there was some mild diverticulitis which we will treat with oral antibiotics. You were given nausea and pain medications to use as needed. Recommend you follow a clear liquid diet for the next 2 to 3 days and advance as tolerated follow-up with Dr. Iniguez in his office regarding the gallbladder stones. We contacted the on-call physician who is covering for Dr. Quinn he recommends that you follow-up with Dr. Franco in the next few weeks continue all your current medications based on the evaluation at this time he did not recommend hospital admission and did not feel your heart failure was significantly decompensated. (Please note that included in your discharge packet is information concerning opioid safety and pain management. This information is given to all patients were discharged from the ER regardless of their discharge diagnosis or the medicines they usually take or are prescribed.) Print Language: Canadian Sign Out Sign Out Data: Patient Sign Out occurred on 11/24/24 at 06:03. Patient's care was discussed, and care was transferred from Blake Bernard MD to Salvador Dickinson DO. Coding Level of Care Code ED Information Technology Teacher for Chg Fwd Documented by User: Salvador Dickinson DO 11/24/24 11:25 HPI - Abdominal Pain General: Chief Complaint: Abdominal Pain Stated Complaint: CP over all sick Time Seen by Provider: 11/24/24 05:42 Related Data Home Medications ?Medication ?Instructions ?Recorded ?Confirmed carvedilol 6.25 mg tablet 6.25 mg PO BID 05/28/20 11/24/24 metformin 500 mg tablet 500 mg PO DAILY 05/28/20 11/24/24 montelukast 10 mg tablet 10 mg PO BEDTIME 05/28/20 11/24/24 simvastatin 10 mg tablet 5 mg PO BEDTIME 05/28/20 11/24/24 allopurinol 100 mg tablet 200 mg PO DAILY 03/10/24 11/24/24 albuterol sulfate 2.5 mg/3 mL 2.5 mg inhalation Q6H PRN 10/17/24 11/24/24 (0.083 %) solution for nebulization Shortness Of Breath aspirin 81 mg tablet,delayed 81 mg PO DAILY 10/17/24 11/24/24 release levothyroxine 88 mcg tablet 88 mcg PO QAM 10/17/24 11/24/24 omeprazole 20 mg capsule,delayed 20 mg PO DAILY 10/17/24 11/24/24 release acetaminophen 500 mg tablet 500 mg PO Q6H PRN Pain 10/26/24 11/24/24 dapagliflozin propanediol 10 mg 10 mg PO DAILY 10/26/24 11/24/24 tablet (Farxiga) azelastine 137 mcg (0.1 %) nasal 2 spray intranasal BID PRN 11/24/24 11/24/24 spray allergies bumetanide 2 mg tablet 2 mg PO BID 11/24/24 11/24/24 nystatin-triamcinolone 100,000 1 applic topical BID PRN Skin 11/24/24 11/24/24 unit/g-0.1 % topical cream Irritation Previous Rx's ?Medication ?Instructions ?Recorded albuterol sulfate 90 mcg/actuation 2 inh inhalation Q4H PRN shortness 03/10/24 aerosol inhaler (Ventolin HFA) of breath or wheezing #8.5 grams apixaban 5 mg tablet (Eliquis) 5 mg PO BID@0500,1700 #60 tabs 10/29/24 magnesium oxide 400 mg PO BID #60 tabs 10/29/24 spironolactone 25 mg tablet 25 mg PO DAILY #30 tabs 11/07/24 sacubitril 24 mg-valsartan 26 mg 1 tab PO BID #180 tabs 11/16/24 tablet (Entresto) amoxicillin 875 mg-potassium 1 tab PO BID #14 tabs 11/24/24 clavulanate 125 mg tablet ondansetron HCl 4 mg tablet 4 mg PO Q6H PRN nausea and 11/24/24 vomiting #20 tabs tramadol 50 mg tablet 50 mg PO Q8H PRN pain #10 tabs 11/24/24 Allergies Allergy/AdvReac Type Severity Reaction Status Date / Time codeine Allergy ALGY-Hives Verified 11/07/24 18:07 furosemide (From Lasix) Allergy ALGY-Hives Verified 11/07/24 18:07 methylprednisolone (From Allergy ALGY-Anaphy Verified 11/07/24 18:07 Solu-Medrol) laxis morphine Allergy ALGY-Hives Verified 11/07/24 18:07 [facility] ED PFSH: Medical History Morbid obesity with BMI of 50.0-59.9, adult Atrial fibrillation Asthma HLD (hyperlipidemia) Diabetes Social History Smoking and tobacco/nicotine status: never used tobacco/nicotine Alcohol intake: current Alcohol intake frequency: holidays/special occasions only Substance/Drug Use: never Course Vital Signs: Vital signs: Vital Signs Temperature 98 F 11/24/24 05:37 Pulse Rate 82 11/24/24 10:30 Respiratory Rate 18 11/24/24 06:09 Blood Pressure 95/45 11/24/24 10:30 Pulse Oximetry 94 11/24/24 10:30 Oxygen Delivery Me thod Room Air 11/24/24 10:30 MDM - Abdominal Pain Medical Decision Making 64-year-old female with past medical history significant for diabetes, A-fib, CHF, morbid obesity, presenting the emergency department with abdominal pain nausea and chest pain x 2 days, nonspecific in nature, vital signs stable other than mild hypotension 90s over 60s, nontender abdomen, plan for labs, chest x-ray, assess volume status to see if patient is currently in heart failure which she has had in the past and was admitted for last month, reassess for disposition Care assumed at change of shift labs reviewed. BNP is improved. No sign of decompensated heart failure. There is gallstones does not appear to have acute cholecystitis no dilation of the common bile duct bilirubin is up. Family is very concerned about this we requested surgical consult Dr. Iniguez seen the patient discussed with him that he did not feel as emergent at this time they can follow-up as an outpatient CT did show mild diverticulitis. Family concerned and was asking about possible admission. I reviewed her previous cardiology notes discussed with Dr. White who is on-call for cardiology does not feel she requires admission there is no evidence of decompensated heart failure recommend patient discharge patient home close echo diet started on Augmentin for diverticulitis give tramadol for pain which she states she has tolerated well in the past. Follow-up with Dr. Iniguez as an outpatient regarding her cholelithiasis and with Dr. Franco in the office sometime in the next 7 to 10 days regarding her heart failure. Medical Records I reviewed the patient's medical records. Lab Data I reviewed the patient's lab results. 11/24/24 05:45 11/24/24 05:45 Labs/Radiology: Radiology Impressions Chest X-Ray 11/24/24 05:37 IMPRESSION: No acute findings. Gallbladder Ultrasound 11/24/24 07:10 IMPRESSION: 1. Cholelithiasis without acute cholecystitis. Numerous stones in the gallbladder. Gallbladder wall is top normal size with no adjacent inflammation. No gallbladder hydrops. 2. Normal common bile duct. 3. Poorly visualized kidney and pancreas. 4. Small amount of ascites adjacent to the liver. 5. Hepatic steatosis and hepatomegaly with changes of cirrhosis suspected. Abdomen/Pelvis CT 11/24/24 09:46 IMPRESSION: 1. Wall thickening and induration about the sigmoid colon in the pelvis suspicious for acute diverticulitis. No drainable abscess. 2. Large infraumbilical [place] fat-containing hernia with fluid similar to previous. 3. Diffuse body wall anasarca. 4. Small amount of perihepatic ascites. 5. Cholelithiasis. No gallbladder wall thickening or pericholecystic fluid. Notified Salvador Dickinson DO at 11/24/2024 10:41 AM. Laboratory Results WBC 7.59 10^3/uL (3.29-11.43) 11/24/24 05:45 RBC 4.44 10^6/uL (3.85-5.65) 11/24/24 05:45 Hgb 13.90 g/dL (11.27-16.99) 11/24/24 05:45 Hct 46.2 % (36-47) 11/24/24 05:45 MCV 104.1 fl (85-98) H 11/24/24 05:45 MCH 31.3 pg (27-33) 11/24/24 05:45 MCHC 30.1 g/dL (30-55) 11/24/24 05:45 RDW 17.9 % (12.1-15.1) H 11/24/24 05:45 Plt Count 214 10^3/cmm (157-399) 11/24/24 05:45 MPV 10.6 fL (7.4-10.4) H 11/24/24 05:45 Neut % (Auto) 66.7 % 11/24/24 05:45 Lymph % (Auto) 10.3 % 11/24/24 05:45 [place] % (Auto) 7.8 % 11/24/24 05:45 Eos % (Auto) 14.1 % 11/24/24 05:45 Baso % (Auto) 0.8 % 11/24/24 05:45 Neut # (Auto) 5.07 10^3/uL (1.8-7.7) 11/24/24 05:45 Lymph # (Auto) 0.8 10^3/uL (0.8-4.8) 11/24/24 05:45 [place] # (Auto) 0.6 10^3/uL (0.2-0.9) 11/24/24 05:45 Eos # (Auto) 1.1 10^3/uL (0.0-0.8) H 11/24/24 05:45 Baso # (Auto) 0.1 10^3/uL (0.0-0.1) 11/24/24 05:45 Nucleated RBC % (auto) 0 % 11/24/24 05:45 Nucleated RBCs # 0.0 /100WBC 11/24/24 05:45 PT 18.50 SECONDS (12.1-14.9) H 11/24/24 05:45 INR 1.44 (0.8-1.2) H 11/24/24 05:45 APTT 35.9 SECONDS (23.9-36.7) 11/24/24 05:45 Sodium 139 mmol/L (136-145) 11/24/24 05:45 Potassium 3.4 mmol/L (3.5-5.1) L 11/24/24 05:45 Chloride 96 mmol/L (98-107) L 11/24/24 05:45 Carbon Dioxide 30 mmol/L (22-29) H 11/24/24 05:45 Anion Gap 16.4 (5-19) 11/24/24 05:45 BUN 21 mg/dL (8-23) 11/24/24 05:45 Creatinine 1.3 mg/dL (0.5-0.9) H 11/24/24 05:45 GFR Calculation 41.1 mL/min (90-130) L 11/24/24 05:45 Glucose 94 mg/dL (65-115) 11/24/24 05:45 Calculated Osmolality 291 mOsm/kg (285-295) 11/24/24 05:45 Calcium 9.3 mg/dL (8.5-10.5) 11/24/24 05:45 Total Bilirubin 1.4 mg/dL (0.15-1.2) H 11/24/24 05:45 AST 18 U/L (0-32) 11/24/24 05:45 ALT 8 U/L (0-33) 11/24/24 05:45 Alkaline Phosphatase 89 U/L (35-105) 11/24/24 05:45 Troponin T Baseline 17 ng/L (0-10) H 11/24/24 05:45 Troponin T 120 Minute 16.04 ng/L (0-10) H 11/24/24 07:28 Delta Troponin T -0.96 ABS# (0-10) L 11/24/24 07:28 NT-Pro-B Natriuret Pep 3480 pg/mL (0-125) H 11/24/24 05:45 Total Protein 8.2 g/dL (6.6-8.7) 11/24/24 05:45 Albumin 4.3 g/dL (3.5-5.2) 11/24/24 05:45 Globulin 3.9 g/dL (1.3-4.6) 11/24/24 05:45 Lipase 31 U/L (13-60) 11/24/24 05:45 Urine Color Yellow (Yellow) 11/24/24 06:00 Urine Appearance Clear (CLEAR) 11/24/24 06:00 Urine pH 7.5 (5-7) 11/24/24 06:00 Ur Specific [place] 1.011 (1.005-1.030) 11/24/24 06:00 Urine Protein Negative (Negative) 11/24/24 06:00 Urine Glucose (UA) 2+ (Normal) H 11/24/24 06:00 Urine Ketones Negative (Negative) 11/24/24 06:00 Urine Blood Negative (Negative) 11/24/24 06:00 Urine Nitrate Negative (Negative) 11/24/24 06:00 Urine Bilirubin Negative (Negative) 11/24/24 06:00 Urine Urobilinogen 0.2 mg/dL (Negative) 11/24/24 06:00 Ur Leukocyte Esterase Negative (Negative) 11/24/24 06:00 Amorphous Sediment Not Reportable 11/24/24 06:00 EKG Data EKG 2: I personally reviewed and interpreted this EKG as follows: EKG interpretation date: 11/24/24 Prior EKG tracings: available for review Interpretation: EKG 11/24/2024 736 sinus rhythm with PVCs no acute ST elevation. Rate of 70 OR interval 179 QTc 510. Compared to EKG done earlier today left bundle branch block no longer present Discharge Plan Discharge Patient Disposition: Home Clinical Impression: Diverticulitis, Chronic kidney disease (CKD), History of congestive heart failure, Cholelithiasis Condition: Stable Prescriptions: New amoxicillin-pot clavulanate 875-125 mg tablet 1 tab PO BID Qty: 14 0RF ondansetron HCl 4 mg tablet 4 mg PO Q6H PRN (Reason: nausea and vomiting) Qty: 20 0RF tramadol 50 mg tablet 50 mg PO Q8H PRN (Reason: pain) Qty: 10 0RF No Action sacubitril-valsartan [Entresto] 24-26 mg tablet 1 tab PO BID Qty: 180 3RF montelukast 10 mg tablet 10 mg PO BEDTIME carvedilol 6.25 mg tablet 6.25 mg PO BID simvastatin 10 mg tablet 5 mg PO BEDTIME metformin 500 mg tablet 500 mg PO DAILY allopurinol 100 mg tablet 200 mg PO DAILY albuterol sulfate [Ventolin HFA] 90 mcg/actuation HFA aerosol inhaler 2 inh inhalation Q4H PRN (Reason: shortness of breath or wheezing) Qty: 8.5 0RF albuterol sulfate 2.5 mg /3 mL (0.083 %) solution for nebulization 2.5 mg inhalation Q6H PRN (Reason: Shortness Of Breath) aspirin 81 mg Tablet,Delayed Release (Dr/Ec) 81 mg PO DAILY levothyroxine 88 mcg tablet 88 mcg PO QAM omeprazole 20 mg capsule,delayed release(DR/EC) 20 mg PO DAILY spironolactone 25 mg tablet 25 mg PO DAILY Qty: 30 0RF acetaminophen 500 mg Tablet 500 mg PO Q6H PRN (Reason: Pain) dapagliflozin propanediol [Farxiga] 10 mg tablet 10 mg PO DAILY Eliquis 5 mg Tablet 5 mg PO BID@0500,1700 Qty: 60 0RF magnesium oxide 400 mg magnesium tablet 400 mg PO BID Qty: 60 0RF bumetanide 2 mg tablet 2 mg PO BID nystatin-triamcinolone 100,000-0.1 unit/g-% Cream 1 applic TOPICAL BID PRN (Reason: Skin Irritation) azelastine 137 mcg (0.1 %) spray,non-aerosol 2 spray intranasal BID PRN (Reason: allergies) Rx Instructions: administer into each nostril Discharge Orders: Discharge ED (Routine); Ordered 11/24/24 Ordered By: Salvador Dickinson Referrals: Shanda Menchaca, INTERMISSION COORDINATOR [Primary Care Provider, Nurse Practitioner] Discharge Diet: Clear Liquid Discharge Activity: Increase activity as tolerated Patient Instructions: Diverticulitis (ED), Opioid Safety, Pain Management, Patient Portal & Jack Instructions Activity Restrictions/Additional Instructions: Thank you for choosing [facility] for your healthcare needs today. It is very important that you follow up as instructed or that you return to the Emergency Department should you have concerns or if your condition changes or worsens in any way. Emergency department visits are focused on emergent conditions, in some cases you may require further evaluation on an outpatient basis. You were seen in the emergency room was complaints of chest discomfort and abdominal pain. There is no signs of decompensation of your heart failure on evaluation today your cardiac enzymes did not show any signs of acute coronary syndrome your EKG was also unchanged from your baseline. You were found to have gallbladder stones although these do not seem to be causing any problems acutely. On the CT there was some mild diverticulitis which we will treat with oral antibiotics. You were given nausea and pain medications to use as needed. Recommend you follow a clear liquid diet for the next 2 to 3 days and advance as tolerated follow-up with Dr. Iniguez in his office regarding the gallbladder stones. We contacted the on-call physician who is covering for Dr. Quinn he recommends that you follow-up with Dr. Franco in the next few weeks continue all your current medications based on the evaluation at this time he did not recommend hospital admission and did not feel your heart failure was significantly decompensated. (Please note that included in your discharge packet is information concerning opioid safety and pain management. This information is given to all patients were discharged from the ER regardless of their discharge diagnosis or the medicines they usually take or are prescribed.) Print Language: Canadian Sign Out Sign Out Data: Patient Sign Out occurred on 11/24/24 at 06:03. Patient's care was discussed, and care was transferred from Blake Bernard MD to Salvador Dickinson DO. Coding Level of Care Code ED Information Technology Teacher for Ralph Gurrola
[2024-11-24 06:10] LABS: Hematocrit 46.2 % (36-47); Hemoglobin 13.90 g/dL (11.27-16.99); Mean Corpuscular HGB Conc 30.1 g/dL (30-55); Mean Corpuscular Hemoglobin 31.3 pg (27-33); Mean Corpuscular Volume 104.1 fl (85-98); Nucleated Red Blood Cells % 0 %; Platelet Count 214 10^3/cmm (157-399); Red Blood Count 4.44 10^6/uL (3.85-5.65); White Blood Count 7.59 10^3/uL (3.29-11.43)
[2024-11-24 06:10] LABS: Add Urine Microscopic? NO
[2024-11-24 06:13] LABS: Glucose Urine UA 2+ (Normal); Nitrate Urine Negative (Negative); Specific Gravity, Urine 1.011 (1.005-1.030)
[2024-11-24 06:16] LABS: Charge for UA Resulting for Rev
[2024-11-24 06:24] LABS: INR 1.44 (0.8-1.2); Prothrombin Time 18.50 SECONDS (12.1-14.9)
[2024-11-24 06:25] LABS: Partial Thromboplastin Time 35.9 SECONDS (23.9-36.7)
[2024-11-24 06:30] LABS: Troponin(5th) Baseline 17 ng/L (0-10)
[2024-11-24 06:38] LABS: Alanine Aminotransferase 8 U/L (0-33); Albumin Level 4.3 g/dL (3.5-5.2); Alkaline Phosphatase 89 U/L (35-105); Anion Gap 16.4 (5-19); Aspartate Amino Transferase 18 U/L (0-32); Blood Urea Nitrogen 21 mg/dL (8-23); Calcium 9.3 mg/dL (8.5-10.5); Carbon Dioxide 30 mmol/L (22-29); Chloride 96 mmol/L (98-107); Creatinine Clr Calc Pharmacy 76.6165; Globulin 3.9 g/dL (1.3-4.6); Glucose 94 mg/dL (65-115); Lipase 31 U/L (13-60); NT Pro B Type Natriuretic Pept 3480 pg/mL (0-125); Osmolality Calculated 291 mOsm/kg (285-295); Potassium 3.4 mmol/L (3.5-5.1); Sodium 139 mmol/L (136-145); Total Protein 8.2 g/dL (6.6-8.7)
--- NOTE | 2024-11-24 07:10 | US_ITS ---
WS: [id number] RIGHT UPPER QUADRANT ULTRASOUND HISTORY: elevated t bili COMPARISON: CT 10/17/2024 Liver: 19.7 cm in length. Moderately enlarged liver with hepatic steatosis. Nodular surface consistent with cirrhosis. No mass. Portal Vein: Normal hepatopetal flow with monophasic waveform. Gallbladder: Normally distended gallbladder with numerous stones. No pericholecystic fluid. Gallbladder wall is measuring 3 mm. CBD: 0.3 cm Pancreas: Obscured by bowel gas. Right kidney: 11.1 cm in length. Poorly visualized RIGHT kidney. Aorta and IVC: Unremarkable abdominal aorta and IVC. There is a very small amount of ascites adjacent to the liver. US/US gall bladder [id number] IMPRESSION: 1. Cholelithiasis without acute cholecystitis. Numerous stones in the gallblad shaina. Gallbladder wall is top normal size with no adjacent inflammation. No gall bladder hydrops. 2. Normal common bile duct. 3. Poorly visualized kidney and pancreas. 4. Small amount of ascites adjacent to the liver. 5. Hepatic steatosis and hepatomegaly with changes of cirrhosis suspected.
--- NOTE | 2024-11-24 07:36 | PC.NURSE ---
PROVIDER NOTIFIED OF BLOOD PRESSURE OF 94/49. NO NEW ORDERS AT THIS TIME.
--- NOTE | 2024-11-24 07:36 | ECG_ITS ---
Health News Test Date: 2024-11-24 Pat Name: Chely Katz Department: Room: Gender: Female Licensed Massage Therapist: : 1960 Requested By: Blake Bernard Order Number: [id number] Reading MD: NANNETTE KOROMA Measurements Intervals Carpenter Rate: 70 P: -4 TN: 179 QRS: -58 QRSD: 132 T: 120 QT: 471 QTc: 510 Interpretive Statements SINUS RHYTHM WITH FREQUENT VENTRICULAR PREMATURE COMPLEXES WITH OCCASIONAL SUPRAVENTRICULAR PREMATURE COMPLEXES INTRAVENTRICULAR CONDUCTION DELAY [130+ ms QRS DURATION] POSSIBLE ANTERIOR MYOCARDIAL INFARCTION , OF INDETERMINATE AGE [30 ms Q WAVE IN V3/V4, OR R < 0.2 mV IN V4] Compared to ECG 11/24/2024 05:33:55 Ventricular premature complex(es) now present Intraventricular conduction delay now present Myocardial infarct finding now present Left-axis deviation no longer present Left bundle-branch block no longer present Electronically Signed On 11-26-2024 23:27:54 CDT by NANNETTE KOROMA [email or web address]
[2024-11-24 07:55] LABS: Troponin 5 2HR 16.04 ng/L (0-10); Troponin 5 2HR Delta -0.96 ABS# (0-10)
--- NOTE | 2024-11-24 09:46 | P.CONIM_ITS ---
Providers/Reason For Consult 2 Consulting Physician/Specialty*: Dr. Iniguez general surgery Reason for Consult*: Cholelithiasis Primary Care Provider: Shanda Menchaca History of Present Illness History of Present Illness Chely Katz is a 64 year old female history of heart failure and obesity whom surgery was consulted for cholelithiasis. Patient reports significant weight gain and diffuse edema. Reports some intermittent lower abdominal pain. No pain when eating fatty foods. Abdomen is benign and nontender. Medications/Allergies Home Medications ?Medication ?Instructions ?Recorded ?Confirmed ?Last Taken ?Type carvedilol 6.25 mg tablet 6.25 mg PO BID 05/28/2011/1511/23/24 History metformin 500 mg tablet 500 mg PO DAILY 05/28/2012/0910/26/24 History montelukast 10 mg tablet 10 mg PO BEDTIME 05/28/2011/23/24 History simvastatin 10 mg tablet 5 mg PO BEDTIME 05/28/2012/0911/23/24 History albuterol sulfate 90 mcg/actuation 2 inh inhalation Q4 H PRN shortness 03/10/24 11/24/24 Unknown Rx aerosol inhaler (Ventolin HFA) of breath or wheezing # 8.5 grams allopurinol 100 mg tablet 200 mg PO DAILY 03/10/2412/0911/23/24 History albuterol sulfate 2.5 mg/3 mL 2.5 mg inhalation Q6H VA N 10/17/24 11/24/24 Unknown History (0.083 %) solution for nebulization Shortness Of Breat h aspirin 81 mg tablet,delayed 81 mg PO DAILY 10/17/24 1 11/23/24 History release levothyroxine 88 mcg tablet 88 mcg PO QAM 10/17/2412/0911/23/24 History omeprazole 20 mg capsule,delayed 20 mg PO DAILY 11/24/24 11/23/24 History release acetaminophen 500 mg tablet 500 mg PO Q6H PRN Pain 01/0911/24/24 10/26/24 History dapagliflozin propanediol 10 mg 10 mg PO DAILY 5 11/24/24 11/23/24 History tablet (Farxiga) apixaban 5 mg tablet (Eliquis) 5 mg PO BID@0500,1700 # 60 tabs 10/29/24 11/24/24 11/23/24 Rx magnesium oxide 400 mg PO BID #60 tabs 10/2911/24/24 11/23/24 Rx spironolactone 25 mg tablet 25 mg PO DAILY #30 tabs 11/24/24 11/23/24 Rx sacubitril 24 mg-valsartan 26 mg 1 tab PO BID #180 tab s 11/16/24 11/24/24 11/23/24 Rx tablet (Entresto) azelastine 137 mcg (0.1 %) nasal 2 spray intranasal BI D PRN 11/24/24 11/24/24 Unknown History spray allergies bumetanide 2 mg tablet 2 mg PO BID 11/24/24 5 11/23/24 History hydrocodone 5 mg-acetaminophen 325 1 tab PO Q6H PRN pa in #10 tabs 11/24/24 Unknown Rx mg tablet nystatin-triamcinolone 100,000 1 applic topical BID VA N Skin 11/24/24 11/24/24 Unknown History unit/g-0.1 % topical cream Irritation Allergies Allergy/AdvReac Type Severity Reaction Status Date / Time codeine Allergy ALGY-Hives Verified 11/07/24 18:07 furosemide (From Lasix) Allergy ALGY-Hives Verified 11/07/24 18:07 methylprednisolone (From Allergy ALGY-Anaphy Verified 11/07/24 18:07 Solu-Medrol) laxis morphine Allergy ALGY-Hives Verified 11/07/24 18:07 PFSH Acute 2 PFSH: Medical History (Updated 11/24/24 @ 11:12 by Jose Iniguze MD) Morbid obesity with BMI of 50.0-59.9, adult Atrial fibrillation Asthma HLD (hyperlipidemia) Diabetes Social History Smoking and tobacco/nicotine status: never used tobacco/nicotine Alcohol intake: current Alcohol intake frequency: holidays/special occasions only Substance/Drug Use: never Vitals/I&O/Wt Last Vital Signs Temp 98 F 11/24/24 05:37 Pulse 82 11/24/24 09:11 Resp 18 11/24/24 06:09 BP 96/45 11/24/24 09:11 Pulse Ox 92 11/24/24 09:11 O2 Del Method Room Air 11/24/24 09:11 11/23/24 11/24/24 11/24/24 22:59 06:59 14:59 Intake Total 0 / 0 Balance 0 / 0 Weight last 48 hrs Weight 248 lb Physical Exam 2 Narrative: Chest: Labored breathing room air Heart: Regular rate and rhythm. Abdomen: Soft, nontender, nondistended. No masses or lymphadenopathy. Data 11/24/24 05:45 11/24/24 05:45 A&P Assessment and plan 1. Cholelithiasis: Plan: 64-year-old female whom surgery was consulted for cholelithiasis. Symptoms not consistent with symptomatic cholelithiasis. Patient is severely deconditioned with a history of heart failure and obesity. Do not recommend surgery in her case. She can follow-up as outpatient if concerns for symptomatic cholelithiasis persist. Patient was in agreement. PDMP PDMP Reviewed: Not Reviewed Coding Level of Care Code 91067 Diagnoses Cholelithiasis K80.20
--- NOTE | 2024-11-24 09:46 | CT_ITS ---
WS: [id number] CT ABDOMEN PELVIS TECHNIQUE: Noncontrast CT of the abdomen and pelvis with coronal and sagittal reformatted images. CLINICAL INFORMATION: Abdominal pain COMPARISON: CT 10/17/2024 DLP: 1187.[address] scans at [facility] use at least one of these dose optimization techniques: automated exposure control; mA and/or kV adjustment per patient size (includes targeted exams where dose is matched to clinical indication); or iterative reconstruction. FINDINGS: Large fat-containing [place] infraumbilical hernia containing omental fat similar to previous. Associated internal fluid. No herniated or entrapped bowel. This measures approximately 8.5 x 7.4 cm. Diffuse body wall anasarca. Small amount of perihepatic ascites. Hepatomegaly. Normal noncontrast spleen. Cholelithiasis. Normal GE junction. Cardiomegaly. Lung bases are well aerated. Adrenal glands are normal. Normal noncontrast pancreas. Normal caliber abdominal aorta. Aortic calcification. No hydro nephrosis in either kidney. Small amount of ascites in the pelvis. Sigmoid diverticulosis. Short segment wall thickening with surrounding inflammatory changes sigmoid colon in the central pelvis suspicious for acute diverticulitis. No drainable abscess. CT/CT abdomen pelvis wo con [id number] IMPRESSION: 1. Wall thickening and induration about the sigmoid colon in the pelvis suspic ious for acute diverticulitis. No drainable abscess. 2. Large infraumbilical [place] fat-containing hernia with fluid similar to previous. 3. Diffuse body wall anasarca. 4. Small amount of perihepatic ascites. 5. Cholelithiasis. No gallbladder wall thickening or pericholecystic fluid. Notified Salvador Dickinson DO at 11/24/2024 10:41 AM.
--- NOTE | 2024-11-24 09:46 | PM.CONSULT ---
Providers/Reason For Consult Consulting Physician/Specialty*: Dr. Iniguez general surgery Reason for Consult*: Cholelithiasis Primary Care Provider: Shanda Menchaca History of Present Illness History of Present Illness Chely Katz is a 64 year old female history of heart failure and obesity whom surgery was consulted for cholelithiasis. Patient reports significant weight gain and diffuse edema. Reports some intermittent lower abdominal pain. No pain when eating fatty foods. Abdomen is benign and nontender. Medications/Allergies Home Medications ?Medication ?Instructions ?Recorded ?Confirmed ?Last Taken ?Type carvedilol 6.25 mg tablet 6.25 mg PO BID 05/28/20 11/24/24 11/23/24 History metformin 500 mg tablet 500 mg PO DAILY 05/28/20 11/24/24 10/26/24 History montelukast 10 mg tablet 10 mg PO BEDTIME 05/28/20 11/24/24 11/23/24 History simvastatin 10 mg tablet 5 mg PO BEDTIME 05/28/20 11/24/24 11/23/24 History albuterol sulfate 90 mcg/actuation 2 inh inhalation Q4H PRN shortness 03/10/24 11/24/24 Unknown Rx aerosol inhaler (Ventolin HFA) of breath or wheezing #8.5 grams allopurinol 100 mg tablet 200 mg PO DAILY 03/10/24 11/24/24 11/23/24 History albuterol sulfate 2.5 mg/3 mL 2.5 mg inhalation Q6H PRN 10/17/24 11/24/24 Unknown History (0.083 %) solution for nebulization Shortness Of Breath aspirin 81 mg tablet,delayed 81 mg PO DAILY 10/17/24 11/24/24 11/23/24 History release levothyroxine 88 mcg tablet 88 mcg PO QAM 10/17/24 11/24/24 11/23/24 History omeprazole 20 mg capsule,delayed 20 mg PO DAILY 10/17/24 11/24/24 11/23/24 History release acetaminophen 500 mg tablet 500 mg PO Q6H PRN Pain 10/26/24 11/24/24 10/26/24 History dapagliflozin propanediol 10 mg 10 mg PO DAILY 10/26/24 11/24/24 11/23/24 History tablet (Farxiga) apixaban 5 mg tablet (Eliquis) 5 mg PO BID@0500,1700 #60 tabs 10/29/24 11/24/24 11/23/24 Rx magnesium oxide 400 mg PO BID #60 tabs 10/29/24 11/24/24 11/23/24 Rx spironolactone 25 mg tablet 25 mg PO DAILY #30 tabs 11/07/24 11/24/24 11/23/24 Rx sacubitril 24 mg-valsartan 26 mg 1 tab PO BID #180 tabs 11/16/24 11/24/24 11/23/24 Rx tablet (Entresto) azelastine 137 mcg (0.1 %) nasal 2 spray intranasal BID PRN 11/24/24 11/24/24 Unknown History spray allergies bumetanide 2 mg tablet 2 mg PO BID 11/24/24 11/24/24 11/23/24 History hydrocodone 5 mg-acetaminophen 325 1 tab PO Q6H PRN pain #10 tabs 11/24/24 Unknown Rx mg tablet nystatin-triamcinolone 100,000 1 applic topical BID PRN Skin 11/24/24 11/24/24 Unknown History unit/g-0.1 % topical cream Irritation Allergies Allergy/AdvReac Type Severity Reaction Status Date / Time codeine Allergy ALGY-Hives Verified 11/07/24 18:07 furosemide (From Lasix) Allergy ALGY-Hives Verified 11/07/24 18:07 methylprednisolone (From Allergy ALGY-Anaphy Verified 11/07/24 18:07 Solu-Medrol) laxis morphine Allergy ALGY-Hives Verified 11/07/24 18:07 PFSH Acute PFSH: Medical History (Updated 11/24/24 @ 11:12 by Jose Iniguez MD) Morbid obesity with BMI of 50.0-59.9, adult Atrial fibrillation Asthma HLD (hyperlipidemia) Diabetes Social History Smoking and tobacco/nicotine status: never used tobacco/nicotine Alcohol intake: current Alcohol intake frequency: holidays/special occasions only Substance/Drug Use: never Vitals/I&O/Wt Last Vital Signs Temp 98 F 11/24/24 05:37 Pulse 82 11/24/24 09:11 Resp 18 11/24/24 06:09 BP 96/45 11/24/24 09:11 Pulse Ox 92 11/24/24 09:11 O2 Del Method Room Air 11/24/24 09:11 11/23/24 11/24/24 11/24/24 22:59 06:59 14:59 Intake Total 0 / 0 Balance 0 / 0 Weight last 48 hrs Weight 248 lb Physical Exam Narrative: Chest: Labored breathing room air Heart: Regular rate and rhythm. Abdomen: Soft, nontender, nondistended. No masses or lymphadenopathy. Data 11/24/24 05:45 11/24/24 05:45 A&P Assessment and plan 1. Cholelithiasis: Plan: 64-year-old female whom surgery was consulted for cholelithiasis. Symptoms not consistent with symptomatic cholelithiasis. Patient is severely deconditioned with a history of heart failure and obesity. Do not recommend surgery in her case. She can follow-up as outpatient if concerns for symptomatic cholelithiasis persist. Patient was in agreement. PDMP PDMP Reviewed: Not Reviewed Coding Level of Care Code 16967 Diagnoses Cholelithiasis K80.20
== END 2024-11-24 11:31 | disposition home or self-care (01) ==
PROVIDERS: Student in an Organized Health Care Education/Training Program; Emergency Provider Family Medicine; PCP Nurse Practitioner Family
DX: K57.32 Diverticulitis of large intestine without perforation or abscess without bleeding (principal); K80.20 Calculus of gallbladder without cholecystitis without obstruction; E11.22 Type 2 diabetes mellitus with diabetic chronic kidney disease; N18.9 Chronic kidney disease, unspecified; I50.9 Heart failure, unspecified; Z79.82 Long term (current) use of aspirin; Z79.01 Long term (current) use of anticoagulants; E78.5 Hyperlipidemia, unspecified; Z79.84 Long term (current) use of oral hypoglycemic drugs
CPT/HCPCS: 36415; 71045; 74176; 76705; 80053; 81003; 83690; 83880; 84484; 85025; 85610; 85730; 93005; 96374; 99285; J1885; J9999